=== PATIENT | female | born 1955 | race Caucasian/White ===

== ENCOUNTER 2023-05-20 15:52 | Inpatient (IN) | payer MEDICARE, OTHER ==
--- NOTE | 2023-05-20 17:11 | ED ---
General Adult HPI - General Chief complaint: Weakness Stated complaint: failure to thrive Time Seen by Provider: 05/20/23 16:16 Source: patient, EMS Mode of arrival: EMS Limitations: physical limitation - History of Present Illness Initial comments: 68-year-old female presents to the emergency department for evaluation of generalized weakness, lightheadedness. Patient states for the past month she has had difficulty getting around due to weakness. She notes that she has been more short of breath than usual. Patient reports that she had chills a couple weeks ago, but this has improved. She also admits to significantly decreased appetite. She denies abdominal pain, vomiting, diarrhea. Patient was placed on 3L O2 by EMS. - Related Data Home Medications Medication Instructions Recorded Confirmed Ibuprofen/Diphenhydramine Cit 3 tab PO HS 05/20/23 05/20/23 [Motrin Pm Caplet] Pioglitazone [Actos] 30 mg PO DAILY 05/20/23 05/20/23 amLODIPine BESYLATE/BENAZEPRIL 1 cap PO DAILY 05/20/23 05/20/23 [amLODIPine BESYLATE/BENAZEPRIL 10-20 mg] metFORMIN HCL [Glucophage] 500 mg PO BID-W/MEALS 05/20/23 05/20/23 Allergies Allergy/AdvReac Type Severity Reaction Status Date / Time No Known Allergies Allergy Verified 05/20/23 19:44 Review of Systems ROS Statement: Those systems with pertinent positive or pertinent negative responses have been documented in the HPI. ROS Other: All systems not noted in ROS Statement are negative. Past Medical History Past Medical History: Diabetes Mellitus, Hypertension Additional Past Medical History / Comment(s): uterine tumor History of Any Multi-Drug Resistant Organisms: None Reported Past Surgical History: Section, Hysterectomy, Tubal Ligation Past Psychological History: No Psychological Hx Reported Smoking Status: Never smoker Past Alcohol Use History: None Reported Past Drug Use History: Marijuana General Exam Limitations: no limitations General appearance: alert, in no apparent distress Head exam: Present: atraumatic, normocephalic, normal inspection Eye exam: Present: normal appearance, PERRL, EOMI. Absent: scleral icterus, conjunctival injection, periorbital swelling ENT exam: Present: normal exam, mucous membranes moist Neck exam: Present: normal inspection. Absent: tenderness, meningismus, lymphadenopathy Respiratory exam: Present: wheezes, rales. Absent: respiratory distress, rhonchi, stridor Cardiovascular Exam: Present: regular rate, normal rhythm, normal heart sounds. Absent: systolic murmur, diastolic murmur, rubs, gallop, clicks GI/Abdominal exam: Present: soft, normal bowel sounds. Absent: distended, tenderness, guarding, rebound, rigid Extremities exam: Present: normal inspection, full ROM, normal capillary refill. Absent: tenderness, pedal edema, joint swelling, calf tenderness Back exam: Present: normal inspection Neurological exam: Present: alert, oriented X3, CN II-XII intact Psychiatric exam: Present: normal affect, normal mood Skin exam: Present: warm, dry, intact, normal color. Absent: rash Course Vital Signs 05/20/23 05/20/23 05/20/23 16:01 19:03 20:02 Temperature 98.5 F Pulse Rate 103 H 101 H 70 Respiratory 18 20 20 Rate Blood Pressure 159/84 148/94 144/84 O2 Sat by Pulse 92 L 94 L 96 Oximetry 05/20/23 05/20/23 05/20/23 20:30 20:37 23:07 Temperature Pulse Rate 70 72 95 Respiratory Rate Blood Pressure O2 Sat by Pulse 95 Oximetry Medical Decision Making - Medical Decision Making Was pt. sent in by a medical professional or institution (, PA, VENDING SUPERVISOR, urgent care, hospital, or fpc...) When possible be specific @ -No Did you speak to anyone other than the patient for history (EMS, parent, family, police, friend...)? What history was obtained from this source @ -Patients daughter provided some of the history for this patient Did you review nursing and triage notes (agree or disagree)? Why? @ -I reviewed and agree with nursing and triage notes Were old charts reviewed (outside hosp., previous admission, EMS record, old EKG, old radiological studies, urgent care reports/EKG's, fpc records)? Report findings @ -No old charts were reviewed Differential Diagnosis (chest pain, altered mental status, abdominal pain women, abdominal pain men, vaginal bleeding, weakness, fever, dyspnea, syncope, headache, dizziness, GI bleed, back pain, seizure, CVA, palpatations, mental health, musculoskeletal)? @ -Differential Weakness: Hypoglycemia, shock, sepsis, hyponatremia, anemia, infection, KS, ETOH, adverse medicine reaction, overdose, stroke, this is not meant to be an all-inclusive list. EKG interpreted by me (3pts min.). @ -EGK at 2004 shows sinus rhythm with short OR, rate 95, OR 100, QRS 86, QTQ Tc [id number] X-rays interpreted by me (1pt min.). @ -Chest XR shows moderate pulmonary vascular congestion CT interpreted by me (1pt min.). @ -CT chest for PE pending U/S interpreted by me (1pt. min.). @ -None done What testing was considered but not performed or refused? (CT, X-rays, U/S, labs)? Why? @ -None What meds were considered but not given or refused? Why? @ -None Did you discuss the management of the patient with other professionals (professionals i.e. , PA, VENDING SUPERVISOR, lab, RT, psych nurse, licensed clinical social worker, log loader, teacher, amphibious operations officer, case finishing machine adjuster)? Give summary @ -Management was discussed with Dr. Byrne, the patient's primary care provider. Recommends admission, pulmonary consultation Was smoking cessation discussed for >3mins.? @ -No Was critical care preformed (if so, how long)? @ -No Were there social determinants of health that impacted care today? How? (Homelessness, low income, unemployed, alcoholism, drug addiction, transportation, low edu. Level, literacy, decrease access to med. care, intermediate, rehab)? @ -No Was there de-escalation of care discussed even if they declined (Discuss DNR or withdrawal of care, Hospice)? DNR status @ -No What co-morbidities impacted this encounter? (DM, HTN, Smoking, COPD, CAD, Cancer, CVA, ARF, Chemo, Hep., AIDS, mental health diagnosis, sleep apnea, morbid obesity)? @ -None Was patient admitted / discharged? Hospital course, mention meds given and route, prescriptions, significant lab abnormalities, going to OR and other pertinent info. @ -Admitted. Presented to the emergency department for evaluation of weakness. Patient found to be hypoxic by EMS and was placed on 3 L of oxygen. She was satting in the low 90s on 3 L. She was bumped up to 4 L and is satting in the mid 90s. Laboratory studies were obtained on this patient. She was found to have significant leukocytosis at 36.5. Differential was pending initially. She was also found to be hypokalemic with a potassium of 2.8. This was replenished with oral potassium. Chest x-ray was obtained which according to radiology shows mild pulmonary vascular congestion, I disagree with this based on the clinical picture, patient will be treated as a pneumonia. She was placed on Rocephin and azithromycin. She was also provided a 1 L bolus with 130 cc/h of normal saline. Patient was later tested for COVID, influenza, RSV and did test positive for influenza A. She was given a dose of Tamiflu. Case was discussed with Dr. Byrne, the patient's primary care provider who recommends admission with pulmonolgy consultation. PE rule out was requested by Dr. Byrne which is pending at the time of admission. Patient will be admitted, she is understanding and agreeable with this plan. Patient stable at time of admission. Case discussed with Dr. Viera Undiagnosed new problem with uncertain prognosis? @ -No Drug Therapy requiring intensive monitoring for toxicity (Heparin, Nitro, Insulin, Cardizem)? @ -No Were any procedures done? @ -No Diagnosis/symptom? @ -Hypoxia, lymphocytosis, influenza A Acute, or Chronic, or Acute on Chronic? @ -Acute Uncomplicated (without systemic symptoms) or Complicated (systemic symptoms)? @ -Uncomplicated Side effects of treatment? @ -No Exacerbation, Progression, or Severe Exacerbation? @ -No Poses a threat to life or bodily function? How? (Chest pain, USA, KS, pneumonia, PE, COPD, DKA, ARF, appy, cholecystitis, CVA, Diverticulitis, Homicidal, Suicidal, threat to staff... and all critical care pts) @ -yes - Lab Data Result diagrams: 05/20/23 17:27 05/20/23 17:27 Lab Results 05/20/23 05/20/23 05/20/23 Range/Units 17:27 17: 17: WBC 36.5 H (3.8-10.6) k/uL RBC 4.61 (3.80-5.40) m/uL Hgb 14.8 (11.4-16.0) gm/dL Hct 42.1 (34.0-46.0) % MCV 91.3 (80.0-100.0) fL MCH 32.0 (25.0-35.0) pg MCHC 35.0 (31.0-37.0) g/dL RDW 15.0 (11.5-15.5) % Plt Count 355 (150-450) k/uL MPV 8.0 Neutrophils % (Manual) 19 % Lymphocytes % (Manual) 80 % Monocytes % (Manual) 1 % Neutrophils # (Manual) 6.94 (1.3-7.7) k/uL Lymphocytes # (Manual) 29.20 H (1.0-4.8) k/uL Monocytes # (Manual) 0.37 (0-1.0) k/uL Nucleated RBCs 0 (0-0) /100 WBC Manual Slide Review Performed Hyperchromasia Slight Poikilocytosis Moderate PT 12.5 (10.0-12.5) sec INR 1.2 H (<1.2) APTT 24.9 (22.0-30.0) sec Sodium (137-145) mmol/L Potassium (3.5-5.1) mmol/L Chloride (98-107) mmol/L Carbon Dioxide (22-30) mmol/L Anion Gap mmol/L BUN (7-17) mg/dL Creatinine (0.52-1.04) mg/dL Est GFR (CKD-EPI)AfAm (>60 ml/min/1.73 sqM) Est GFR (CKD-EPI)NonAf (>60 ml/min/1.73 sqM) Glucose (74-99) mg/dL Plasma Lactic Acid Blanco (0.7-2.0) mmol/L Calcium (8.4-10.2) mg/dL Magnesium (1.6-2.3) mg/dL Total Bilirubin (0.2-1.3) mg/dL AST (14-36) U/L ALT (4-34) U/L Alkaline Phosphatase (38-126) U/L Troponin I (0.000-0.034) ng/mL NT-Pro-B Natriuret Pep pg/mL Total Protein (6.3-8.2) g/dL Albumin (3.5-5.0) g/dL Urine Color Yellow Urine Appearance Clear (Clear) Urine pH 6.0 (5.0-8.0) Ur Specific Cord 1.017 (1.001-1.035) Urine Protein 1+ H (Negative) Urine Glucose (UA) 1+ H (Negative) Urine Ketones 3+ H (Negative) Urine Blood Trace H (Negative) Urine Nitrite Negative (Negative) Urine Bilirubin Negative (Negative) Urine Urobilinogen <2.0 (<2.0) mg/dL Ur Leukocyte Esterase Moderate H (Negative) Urine RBC 6 H (0-5) /hpf Urine WBC 33 H (0-5) /hpf Ur Squamous Epith Cells 3 (0-4) /hpf Urine Bacteria Rare H (None) /hpf Urine Mucus Rare H (None) /hpf Influenza Type A (PCR) (Not Detectd) Influenza Type B (PCR) (Not Detectd) RSV (PCR) (Not Detectd) SARS-CoV-2 (PCR) (Not Detectd) 05/20/23 05/20/23 05/20/23 Range/Units 17:27 17:27 17:27 WBC (3.8-10.6) k/uL RBC (3.80-5.40) m/uL Hgb (11.4-16.0) gm/dL Hct (34.0-46.0) % MCV (80.0-100.0) fL MCH (25.0-35.0) pg MCHC (31.0-37.0) g/dL RDW (11.5-15.5) % Plt Count (150-450) k/uL MPV Neutrophils % (Manual) % Lymphocytes % (Manual) % Monocytes % (Manual) % Neutrophils # (Manual) (1.3-7.7) k/uL Lymphocytes # (Manual) (1.0-4.8) k/uL Monocytes # (Manual) (0-1.0) k/uL Nucleated RBCs (0-0) /100 WBC Manual Slide Review Hyperchromasia Poikilocytosis PT (10.0-12.5) sec INR (<1.2) APTT (22.0-30.0) sec Sodium 134 L (137-145) mmol/L Potassium 2.8 L (3.5-5.1) mmol/L Chloride 89 L (98-107) mmol/L Carbon Dioxide 36 H (22-30) mmol/L Anion Gap 9 mmol/L BUN 16 (7-17) mg/dL Creatinine 0.48 L (0.52-1.04) mg/dL Est GFR (CKD-EPI)AfAm >90 (>60 ml/min/1.73 sqM) Est GFR (CKD-EPI)NonAf >90 (>60 ml/min/1.73 sqM) Glucose 178 H (74-99) mg/dL Plasma Lactic Acid Blanco 1.2 (0.7-2.0) mmol/L Calcium 8.6 (8.4-10.2) mg/dL Magnesium (1.6-2.3) mg/dL Total Bilirubin 1.3 (0.2-1.3) mg/dL AST 31 (14-36) U/L ALT 21 (4-34) U/L Alkaline Phosphatase 90 (38-126) U/L Troponin I <0.012 (0.000-0.034) ng/mL NT-Pro-B Natriuret Pep 111 pg/mL Total Protein 6.4 (6.3-8.2) g/dL Albumin 3.7 (3.5-5.0) g/dL Urine Color Urine Appearance (Clear) Urine pH (5.0-8.0) Ur Specific Cord (1.001-1.035) Urine Protein (Negative) Urine Glucose (UA) (Negative) Urine Ketones (Negative) Urine Blood (Negative) Urine Nitrite (Negative) Urine Bilirubin (Negative) Urine Urobilinogen (<2.0) mg/dL Ur Leukocyte Esterase (Negative) Urine RBC (0-5) /hpf Urine WBC (0-5) /hpf Ur Squamous Epith Cells (0-4) /hpf Urine Bacteria (None) /hpf Urine Mucus (None) /hpf Influenza Type A (PCR) (Not Detectd) Influenza Type B (PCR) (Not Detectd) RSV (PCR) (Not Detectd) SARS-CoV-2 (PCR) (Not Detectd) 05/20/23 05/20/23 Range/Units 18:26 19:26 WBC (3.8-10.6) k/uL RBC (3.80-5.40) m/uL Hgb (11.4-16.0) gm/dL Hct (34.0-46.0) % MCV (80.0-100.0) fL MCH (25.0-35.0) pg MCHC (31.0-37.0) g/dL RDW (11.5-15.5) % Plt Count (150-450) k/uL MPV Neutrophils % (Manual) % Lymphocytes % (Manual) % Monocytes % (Manual) % Neutrophils # (Manual) (1.3-7.7) k/uL Lymphocytes # (Manual) (1.0-4.8) k/uL Monocytes # (Manual) (0-1.0) k/uL Nucleated RBCs (0-0) /100 WBC Manual Slide Review Hyperchromasia Poikilocytosis PT (10.0-12.5) sec INR (<1.2) APTT (22.0-30.0) sec Sodium (137-145) mmol/L Potassium (3.5-5.1) mmol/L Chloride (98-107) mmol/L Carbon Dioxide (22-30) mmol/L Anion Gap mmol/L BUN (7-17) mg/dL Creatinine (0.52-1.04) mg/dL Est GFR (CKD-EPI)AfAm (>60 ml/min/1.73 sqM) Est GFR (CKD-EPI)NonAf (>60 ml/min/1.73 sqM) Glucose (74-99) mg/dL Plasma Lactic Acid Blanco (0.7-2.0) mmol/L Calcium (8.4-10.2) mg/dL Magnesium 2.0 (1.6-2.3) mg/dL Total Bilirubin (0.2-1.3) mg/dL AST (14-36) U/L ALT (4-34) U/L Alkaline Phosphatase (38-126) U/L Troponin I (0.000-0.034) ng/mL NT-Pro-B Natriuret Pep pg/mL Total Protein (6.3-8.2) g/dL Albumin (3.5-5.0) g/dL Urine Color Urine Appearance (Clear) Urine pH (5.0-8.0) Ur Specific Cord (1.001-1.035) Urine Protein (Negative) Urine Glucose (UA) (Negative) Urine Ketones (Negative) Urine Blood (Negative) Urine Nitrite (Negative) Urine Bilirubin (Negative) Urine Urobilinogen (<2.0) mg/dL Ur Leukocyte Esterase (Negative) Urine RBC (0-5) /hpf Urine WBC (0-5) /hpf Ur Squamous Epith Cells (0-4) /hpf Urine Bacteria (None) /hpf Urine Mucus (None) /hpf Influenza Type A (PCR) Detected A (Not Detectd) Influenza Type B (PCR) Not Detected (Not Detectd) RSV (PCR) Not Detected (Not Detectd) SARS-CoV-2 (PCR) Not Detected (Not Detectd) Disposition Clinical Impression: Lymphocytosis, Pulmonary vascular congestion, Influenza A, Hypoxia, Hypokalemia Disposition: ADMITTED IP TO THIS HOSP Condition: Stable Is patient prescribed a controlled substance at d/c from ED?: No
--- NOTE | 2023-05-20 17:56 | XR ---
EXAMINATION TYPE: XR chest 2V DATE OF EXAM: 05/20/2023 5:53 PM CLINICAL INDICATION:Female, 68 years old with history of Weakness; PHH COMPARISON: None TECHNIQUE: XR chest 2V Frontal and lateral views of the chest. FINDINGS: Lungs/Pleura: There is no evidence of pleural effusion, focal consolidation, or pneumothorax. Pulmonary vascularity: Pulmonary vascular congestion. Heart/mediastinum: Cardiomediastinal silhouette is enlarged and stable. Atherosclerotic calcificatio ns are seen in the aorta. Musculoskeletal: No acute osseous pathology. IMPRESSION: Cardiomegaly and mild pulmonary vascular congestion. Correlate with BNP for congestive heart failure.
[2023-05-20 18:02] LABS: HCT 42.1 % (34.0-46.0); HGB 14.8 gm/dL (11.4-16.0); Hyperchromasia Slight; MCV 91.3 fL (80.0-100.0); Platelet Count 355 k/uL (150-450); Poikilocytosis Moderate; RBC 4.61 m/uL (3.80-5.40); WBC 36.5 k/uL (3.8-10.6)
[2023-05-20 18:03] LABS: ALT 21 U/L (4-34); AST 31 U/L (14-36); African American GFR (CKD) >90 (>60 ml/min/1.73 sqM); Albumin 3.7 g/dL (3.5-5.0); Alkaline Phosphatase 90 U/L (38-126); Anion Gap 9 mmol/L; Blood Urea Nitrogen 16 mg/dL (7-17); Calcium 8.6 mg/dL (8.4-10.2); Carbon Dioxide 36 mmol/L (22-30); Chloride 89 mmol/L (98-107); Glucose 178 mg/dL (74-99); Non-African American GFR(CKD) >90 (>60 ml/min/1.73 sqM); Potassium 2.8 mmol/L (3.5-5.1); Sodium 134 mmol/L (137-145); Total Bilirubin 1.3 mg/dL (0.2-1.3); Total Protein 6.4 g/dL (6.3-8.2)
[2023-05-20 18:07] LABS: INR 1.2 (<1.2); Partial Thromboplastin Time 24.9 sec (22.0-30.0); Prothrombin Time 12.5 sec (10.0-12.5)
[2023-05-20] MEDS ORDERED: Potassium Replacement Protocol 1 EACH MISC MISCELLANE PRN (18:07)
[2023-05-20 18:11] LABS: NT-Pro-B-Type Natriuretic Pept 111 pg/mL
[2023-05-20] MEDS: POTASSIUM CHLORIDE ER 20 MEQ TAB.ER PO SCH (18:47)
[2023-05-20] MEDS ORDERED: PNEUMONIA PROTOCOL UTILIZED 1 EACH MISC PO PRN (18:52)
[2023-05-20] MEDS ORDERED: ALBUTEROL NEBULIZED 2.5 MG/3 ML INHALATION PRN (18:52)
[2023-05-20] MEDS ORDERED: IPRATROPIUM-ALBUTEROL 3 ML NEB INHALATION PRN (18:52)
[2023-05-20 19:32] LABS: Appearance,Urine Clear (Clear); Bacteria,Urine Rare /hpf; Bilirubin,Urine Negative (Negative); Blood,Urine Trace (Negative); Color,Urine Yellow; Glucose,Urine (UA) 1+ (Negative); Leukocyte Esterase,Urine Moderate (Negative); Mucus,Urine Rare /hpf; Nitrite,Urine Negative (Negative); Protein,Urine 1+ (Negative); RBC,Urine 6 /hpf (0-5); Specific Gravity,Urine 1.017 (1.001-1.035); Squamous Epithelial Cell,Urine 3 /hpf (0-4); Urobilinogen,Urine <2.0 mg/dL (<2.0); WBC,Urine 33 /hpf (0-5)
[2023-05-20 19:33] LABS: Ketones,Urine 3+ (Negative)
[2023-05-20 19:38] LABS: Monocytes # (M) 0.37 k/uL (0-1.0); Neutrophils # (M) 6.94 k/uL (1.3-7.7); Neutrophils % (M) 19 %; Nucleated Red Blood Cells 0 /100 WBC (0-0); Total Cells Counted 100
[2023-05-20] MEDS: SODIUM CHLORIDE 0.9% 1,000 ML IV ONE (19:46)
[2023-05-20] MEDS ORDERED: KETOROLAC 15 MG/ML 1 ML VIAL IVP PRN (20:09)
[2023-05-20] MEDS ORDERED: NALOXONE 0.4 MG/ML 1 ML VIAL IV PRN (20:09)
[2023-05-20] MEDS: IPRATROPIUM-ALBUTEROL 3 ML NEB INHALATION STA (20:28)
[2023-05-20] MEDS: AZITHROMYCIN 500 MG in SODIUM CHLORIDE 0.9% 250 ML IVPB STA (21:05)
[2023-05-20] MEDS: SODIUM CHLORIDE 0.9% 1,000 ML IV SCH (21:06)
[2023-05-20] MEDS: OSELTAMIVIR 75 MG CAP PO STA (21:08)
[2023-05-20] MEDS: METOCLOPRAMIDE 5 MG/ML 2 ML VIAL IVP STA (23:07)
--- NOTE | 2023-05-20 23:08 | CT ---
EXAMINATION TYPE: CT chest angio for PE CT DLP: 389.2 mGycm, Automated exposure control for dose reduction was used. DATE OF EXAM: 05/20/2023 9:01 PM COMPARISON: Chest x-ray earlier today CLINICAL INDICATION:Female, 68 years old with history of dyspnea; Dyspnea TECHNIQUE/CONTRAST: CTA scan of the thorax is performed with IV Contrast, patient injected with 65ml mL of Isovue 370, IL P images are created and reviewed these are created on a separate workstation.. FINDINGS: There is adequate contrast bolus and timing. PULMONARY ARTERIES: There is no evidence for a filling defect within the pulmonary vasculature to sug gest acute pulmonary embolism. Pulmonary trunk is normal in size. Trunk measures 2.3 CM. HEART: Mild to moderate cardiomegaly.Mild coronary artery calcification. No appreciable pericardial effusion. Prominent pericardial fat. AORTA: Mild atherosclerotic calcifications of the aorta, mostly upper abdomen. Ascending aorta is 3. 2 CM, descending is 2.3 CM. No dissection. LOWER NECK: No significant findings. MEDIASTINUM: Multiple borderline prominent and mildly enlarged mediastinal nodes. AP window node with short axis 10 mm, subcarinal node 13 mm for example. Bilateral hilar region soft tissue densities s uggestive of adenopathy. Right hilar conglomerate density 3.1 cm left hilar node 1.9 cm. Other exampl es are possible. SOFT TISSUES/LYMPH NODES: Unremarkable soft tissues. No axillary adenopathy. LUNGS/ PLEURA: Background mild chronic interstitial and senescent changes. There is superimposed patc hy groundglass and reticular opacities with a collection for the subpleural regions bilaterally. No d iscretely seen nodule or mass. No pleural effusion or pneumothorax. AIRWAY: Central airways are patent. There is borderline mild bronchiectasis in the lower lobes. MUSCULOSKELETAL: No acute osseous abnormality. Moderate disc degeneration changes are present through out the included thoracolumbar spine. Prominent apex right curvature of the thoracic spine. UPPER ABDOMEN: Moderate sized sliding hiatal hernia. Radiodensity within the stomach lumen, likely so mething ingested. Differential would include bleeding, if there is history or suspicion for upper GI bleed. Mildly thickened adrenals likely from hyperplasia. Spleen is prominent, visualized portion 11 .8 cm but a significant portion extends beyond the scope of this exam. IMPRESSION: 1. No evidence of pulmonary embolism. 2. Patchy bilateral primarily subpleural groundglass opacities, raising concern for infectious/infla mmatory process. Differential includes atypical infectious agents (such as Covid 19). 3. Bilateral hilar adenopathy, and several mediastinal nodes which are borderline to mildly enlarged .
[2023-05-20] MEDS: MORPHINE SULFATE 4 MG/ML SYRINGE IV PRN (23:31)
[2023-05-20] MEDS ORDERED: VANCOMYCIN IV PER PHARMACY 1 EACH MISC MISCELLANE PRN (23:59)
[2023-05-21] MEDS ORDERED: DEXTROSE 50% SYRINGE 50 ML IVP PRN ×2
[2023-05-21] MEDS: VANCOMYCIN 2,000 MG in SODIUM CHLORIDE 0.9% 500 ML 500 ML IVPB ONE (01:17)
[2023-05-21] MEDS: ALBUTEROL NEBULIZED 2.5 MG/3 ML INHALATION SCH (03:51)
--- NOTE | 2023-05-21 05:23 | P.CNPUL ---
History of Present Illness Consult date: 05/21/23 Requesting physician: Debra Myles Reason for consult: other (Acute hypoxemic respiratory failure, influenza A infection) Chief complaint: Shortness of breath, weakness, fatigue History of present illness: I am seeing this patient in consultation today 05/21/2023 in the emergency room after she presented with exertional dyspnea, generalized weakness, and fatigue. Patient is a 68-year-old white female with past medical history significant for diabetes mellitus, hypertension. She reports flulike symptoms that started on the or april. They started with runny nose, sore throat, nonproductive cough, fevers/chills, reduced appetite. She never really fully recovered. More recently, she has been experiencing shortness of breath especially on exertion. She has been very weak and lightheaded. She did have a brief episode of nausea and vomiting while in the emergency room. She is currently sitting with bed, on 5 L/min nasal cannula, in no acute distress at rest. She is anxious. She did test positive for influenza A on arrival. Chest CT shows patchy bilateral groundglass opacities concerning for atypical pneumonia. There is bilateral hilar and mediastinal adenopathy, likely reactive. CBC on arrival shows significant leukocytosis with a total WBC count of 36.5. Predominantly lymphocytes. Remaining CBC unremarkable. BMP on arrival: Sodium 134, potassium 2.8, chloride 89, serum bicarb 36, BUN 16, creatinine 0.48, glucose 178. LFTs not elevated. Troponin less than 0.012. NT proBNP 111. Urinalysis shows moderate leukocytes and rare pyuria. Patient denies any urinary complaints. Currently afebrile. Vital signs are stable. Review of Systems REVIEW OF SYSTEMS: CONSTITUTIONAL: Denies any recent significant weight loss or weight gain. EYES: Denies change in vision. EARS, NOSE, MOUTH, THROAT: Admits frontal headaches, rhinorrhea, sore throat earlier in the month CARDIOVASCULAR: Denies chest pain, palpitations or syncopal episodes. RESPIRATORY: See HPI GASTROINTESTINAL: Admits reduced appetite and brief episode of nausea and vomiting in the emergency room, mostly water. Denies any abdominal pain, constipation, diarrhea GENITOURINARY: Denies hematuria, denies infections. MUSKULOSKELETAL: Denies pain, denies swelling. INTEGUMENTARY: Denies rash, denies eczema. NEUROLOGICAL: Denies recent memory loss, no recent seizure activity. PSYCHIATRIC: Denies anxiety, denies depression. HEMATOLOGIC/LYMPHATIC: Denies anemia, denies enlarged lymph node Past Medical History Past Medical History: Diabetes Mellitus, Hypertension Additional Past Medical History / Comment(s): uterine tumor History of Any Multi-Drug Resistant Organisms: None Reported Past Surgical History: Section, Hysterectomy, Tubal Ligation Past Psychological History: No Psychological Hx Reported Smoking Status: Never smoker Past Alcohol Use History: None Reported Past Drug Use History: Marijuana Medications and Allergies Home Medications Medication Instructions Recorded Confirmed Type Ibuprofen/Diphenhydramine Cit 3 tab PO HS 05/20/23 05/20/23 History [Motrin Pm Caplet] Pioglitazone [Actos] 30 mg PO DAILY 05/20/23 05/20/23 History amLODIPine BESYLATE/BENAZEPRIL 1 cap PO DAILY 05/20/23 05/20/23 History [amLODIPine BESYLATE/BENAZEPRIL 10-20 mg] metFORMIN HCL [Glucophage] 500 mg PO BID-W/MEALS 05/20/23 05/20/23 History Allergies Allergy/AdvReac Type Severity Reaction Status Date / Time No Known Allergies Allergy Verified 05/20/23 19:44 Physical Exam Vitals: Vital Signs Temp Pulse Resp BP Pulse Ox 05/21/23 02:41 97 05/21/23 01:26 98 20 149/72 94 L 05/20/23 23:07 95 95 05/20/23 20:37 72 05/20/23 20:30 70 05/20/23 20:02 70 20 144/84 96 05/20/23 19:03 101 H 20 148/94 94 L 05/20/23 16:01 98.5 F 103 H 18 159/84 92 L Intake and Output 05/20/23 05/20/23 05/21/23 14:59 22:59 06:59 Other: Weight 92.986 kg GENERAL EXAM: Alert, 68-year-old white female, appearing stated age, fatigued, in no apparent distress. HEAD: Normocephalic and atraumatic EYES: Normal reaction of pupils, equal size. NOSE: Clear with pink turbinates. THROAT: No erythema or exudates. NECK: No masses, no JVD. CHEST: No chest wall deformity. LUNGS: Equal air entry with scattered crackles. On 5 L/min nasal cannula. No conversational dyspnea or accessory muscle use while at rest CVS: S1 and S2 normal with no audible murmur, regular rhythm. No extra heart sounds ABDOMEN: No hepatosplenomegaly, active bowel sounds, no guarding or rigidity. SPINE: No scoliosis or deformity SKIN: No rashes CENTRAL NERVOUS SYSTEM: No focal deficits, tone is normal in all 4 extremities. EXTREMITIES: There is no peripheral edema, clubbing, or cyanosis. Peripheral pulses are intact. Results - Laboratory Findings CBC and BMP: 05/20/23 17:27 05/20/23 17:27 PT/INR, D-dimer PT 12.5 sec (10.0-12.5) 05/20/23 17: INR 1.2 (<1.2) H 05/20/23 17: Abnormal lab findings: Abnormal Labs 05/20/23 05/20/23 05/20/23 17:27 17:27 17:27 WBC 36.5 H Lymphocytes # (Manual) 29.20 H INR 1.2 H Sodium Potassium Chloride Carbon Dioxide Creatinine Glucose Urine Protein 1+ H Urine Glucose (UA) 1+ H Urine Ketones 3+ H Urine Blood Trace H Ur Leukocyte Esterase Moderate H Urine RBC 6 H Urine WBC 33 H Urine Bacteria Rare H Urine Mucus Rare H Influenza Type A (PCR) 05/20/23 05/20/23 17:27 19:26 WBC Lymphocytes # (Manual) INR Sodium 134 L Potassium 2.8 L Chloride 89 L Carbon Dioxide 36 H Creatinine 0.48 L Glucose 178 H Urine Protein Urine Glucose (UA) Urine Ketones Urine Blood Ur Leukocyte Esterase Urine RBC Urine WBC Urine Bacteria Urine Mucus Influenza Type A (PCR) Detected A - Diagnostic Findings Chest x-ray: image reviewed CT scan - chest: image reviewed Assessment and Plan Assessment: Acute hypoxemic respiratory failure, secondary to subacute influenza A infe ction, chest CT shows patchy bilateral groundglass opacities concerning for atypical pneumonia/viral pneumonia, unable to rule out superimposed bacterial infection at this time. Acute leukocytosis/lymphocytosis, secondary to above Hypokalemia, being replaced Possible UTI Diabetes mellitus type 2 Hypertension Obesity, with a BMI of 37.5 kg/m Plan: Patient's medications, labs, chest x-ray reviewed Continue supplemental oxygen, to maintain oxygen saturation 92% or greater Patient technically outside the window, but will continue with Tamiflu twice daily for 5 days Continue with empiric antibiotics, unable to rule out superinfection with bacterial pneumonia at this time. Imaging more consistent with viral/atypical pneumonia Check procalcitonin level Blood cultures pending Recheck electrolytes and replace per protocol We will continue to follow I have personally seen and examined the patient, performed the documentation and the assessment and plan as written. Number of minutes spent on the visit:20 Time with Patient: Greater than 30
[2023-05-21 07:55] LABS: Glucose,Whole Blood 191 mg/dL (70-110)
[2023-05-21 08:04] LABS: African American GFR (CKD) >90 (>60 ml/min/1.73 sqM); Anion Gap 8 mmol/L; Blood Urea Nitrogen 10 mg/dL (7-17); Calcium 7.8 mg/dL (8.4-10.2); Carbon Dioxide 32 mmol/L (22-30); Chloride 95 mmol/L (98-107); Glucose 159 mg/dL (74-99); Non-African American GFR(CKD) >90 (>60 ml/min/1.73 sqM); Sodium 135 mmol/L (137-145)
[2023-05-21 08:11] LABS: Potassium 2.6 mmol/L (3.5-5.1)
[2023-05-21] MEDS: INSULIN ASPART (NovoLOG) 100 UNIT/ML VIAL SQ SCH (08:44)
[2023-05-21] MEDS: POTASSIUM CHLORIDE ER 20 MEQ TAB.ER PO SCH (08:46)
[2023-05-21] MEDS: OSELTAMIVIR 75 MG CAP PO SCH (10:10)
[2023-05-21] MEDS: AZITHROMYCIN 500 MG TAB PO SCH (10:10)
[2023-05-21] MEDS: amLODIPine 10 MG TAB PO SCH (11:02)
[2023-05-21] MEDS: ONDANSETRON 4 MG/2 ML VIAL IVP PRN (11:41)
[2023-05-21 11:50] LABS: Glucose,Whole Blood 251 mg/dL (70-110)
--- NOTE | 2023-05-21 12:02 | P.HPIM ---
History of Present Illness H&P Date: 05/21/23 History of present illness; patient is a 68-year-old lady with past medical history significant for hypertension, diabetes mellitus presented to ER for complaints of generalized weakness and lightheadedness. Patient r states she has not been feeling well for the last few weeks. Patient had a hard time getting around because of weakness. Patient was complaining of chills but did not check her fever. Patient also complains of shortness of breath on exertion. Denies any chest pain. There is no complaint of productive cough. Patient has been complaining of lightheadedness. Patient also complaining of nausea. Because of the symptoms, patient came to the ER Initial lab work done in the ER showed WBC 36.5, hemoglobin 14.8, platelet count 255, sodium 134, potassium 2.8, BUN 16, creatinine 0.48 Influenza A detected Influenza B not detected RSV not detected COVID-19 not detected EKG done in the ER showed heart rate of 95, no ST segment elevation or depression seen, no T-wave inversions seen. Chest x-ray done in the ER cardiomegaly and mild pulmonary congestion CT chest done showed no evidence of PE. Patchy bilateral primarily subpleural groundglass opacity raising concern for infectious/inflammatory process Patient admitted to internal medicine service REVIEW OF SYSTEMS: CONSTITUTIONAL: As mentioned above HEENT: No recent visual problems or hearing problems. Denied any sore throat. CARDIOVASCULAR: As mentioned above PULMONARY: As mentioned above GASTROINTESTINAL: No diarrhea, no nausea, no vomiting, no abdominal pain. NEUROLOGICAL: No headaches, no weakness, no numbness. HEMATOLOGICAL: Denies any bleeding or petechiae. GENITOURINARY: Denies any burning micturition, frequency, or urgency. MUSCULOSKELETAL/RHEUMATOLOGICAL: Denies any joint pain, swelling, or any muscle pain. ENDOCRINE: Denies any polyuria or polydipsia. The rest of the 14-point review of systems is negative. PHYSICAL EXAMINATION: GENERAL: The patient is alert and oriented x3, not in any acute distress. Well developed, well nourished. HEENT: Pupils are round and equally reacting to light. EOMI. No scleral icterus. No conjunctival pallor. Normocephalic, atraumatic. No pharyngeal erythema. No thyromegaly. CARDIOVASCULAR: S1 and S2 present. No murmurs, rubs, or gallops. PULMONARY: Coarse breath sound bilaterally, no wheezing or crackles. ABDOMEN: Soft, nontender, nondistended, normoactive bowel sounds. No palpable organomegaly. MUSCULOSKELETAL: No joint swelling or deformity. EXTREMITIES: No cyanosis, clubbing, or pedal edema. NEUROLOGICAL: Gross neurological examination did not reveal any focal deficits. SKIN: No rashes. Assessment and plan Acute hypoxemic respiratory failure Sepsis present on admission Influenza A infection Bacterial pneumonia Hyponatremia Hypokalemia Diabetes mellitus Hypertension Monitor vital signs Monitor CBC Monitor CMP Continue telemetry monitoring Follow-up on blood cultures Aggressive bronchopulmonary hygiene Encourage use of I-S Continue Tamiflu Start IV Rocephin and azithromycin Blood sugar levels, continue sliding scale insulin Resume Norvasc Continue breathing treatments Consult pulmonary Consult ID Labs and medication were reviewed.. Continue same treatment. Continue with symptomatic treatment. Resume home medication. Monitor labs and vitals. DVT and GI prophylaxis. Further recommendations as per clinical course of the patient Dictation was produced using [employer] dictation software. please excuse any grammatical, word or spelling errors. Past Medical History Past Medical History: Diabetes Mellitus, Hypertension Additional Past Medical History / Comment(s): uterine tumor History of Any Multi-Drug Resistant Organisms: None Reported Past Surgical History: Section, Hysterectomy, Tubal Ligation Past Psychological History: No Psychological Hx Reported Smoking Status: Never smoker Past Alcohol Use History: None Reported Past Drug Use History: Marijuana Medications and Allergies Home Medications Medication Instructions Recorded Confirmed Type Ibuprofen/Diphenhydramine Cit 3 tab PO HS 05/20/23 05/20/23 History [Motrin Pm Caplet] Pioglitazone [Actos] 30 mg PO DAILY 05/20/23 05/20/23 History amLODIPine BESYLATE/BENAZEPRIL 1 cap PO DAILY 05/20/23 05/20/23 History [amLODIPine BESYLATE/BENAZEPRIL 10-20 mg] metFORMIN HCL [Glucophage] 500 mg PO BID-W/MEALS 05/20/23 05/20/23 History Allergies Allergy/AdvReac Type Severity Reaction Status Date / Time No Known Allergies Allergy Verified 05/20/23 19:44 Physical Exam Vitals: Vital Signs Temp Pulse Pulse Resp BP BP Pulse Ox 05/21/23 07:00 98.6 F 86 15 150/72 90 L 05/21/23 06:07 98.0 F 87 18 134/71 92 L 05/21/23 02:41 97 05/21/23 01:26 98 20 149/72 94 L 05/20/23 23:07 95 95 05/20/23 20:37 72 05/20/23 20:30 70 05/20/23 20:02 70 20 144/84 96 05/20/23 19:03 101 H 20 148/94 94 L 05/20/23 16:01 98.5 F 103 H 18 159/84 92 L Intake and Output 05/20/23 05/21/23 05/21/23 22:59 06:59 14:59 Other: Weight 92.986 kg Results CBC & Chem 7: 05/20/23 17:27 05/21/23 07:21 Labs: Abnormal Lab Results - Last 24 Hours (Table) 05/20/23 05/20/23 05/20/23 Range/Units 17:27 17:27 17:27 WBC 36.5 H (3.8-10.6) k/uL Lymphocytes # (Manual) 29.20 H (1.0-4.8) k/uL INR 1.2 H (<1.2) Sodium (137-145) mmol/L Potassium (3.5-5.1) mmol/L Chloride (98-107) mmol/L Carbon Dioxide (22-30) mmol/L Creatinine (0.52-1.04) mg/dL Glucose (74-99) mg/dL POC Glucose (mg/dL) (70-110) mg/dL Calcium (8.4-10.2) mg/dL Urine Protein 1+ H (Negative) Urine Glucose (UA) 1+ H (Negative) Urine Ketones 3+ H (Negative) Urine Blood Trace H (Negative) Ur Leukocyte Esterase Moderate H (Negative) Urine RBC 6 H (0-5) /hpf Urine WBC 33 H (0-5) /hpf Urine Bacteria Rare H (None) /hpf Urine Mucus Rare H (None) /hpf Influenza Type A (PCR) (Not Detectd) 05/20/23 05/20/23 05/21/23 Range/Units 17:27 19:26 07:21 WBC (3.8-10.6) k/uL Lymphocytes # (Manual) (1.0-4.8) k/uL INR (<1.2) Sodium 134 L 135 L (137-145) mmol/L Potassium 2.8 L 2.6 L* (3.5-5.1) mmol/L Chloride 89 L 95 L (98-107) mmol/L Carbon Dioxide 36 H 32 H (22-30) mmol/L Creatinine 0.48 L 0.45 L (0.52-1.04) mg/dL Glucose 178 H 159 H (74-99) mg/dL POC Glucose (mg/dL) (70-110) mg/dL Calcium 7.8 L (8.4-10.2) mg/dL Urine Protein (Negative) Urine Glucose (UA) (Negative) Urine Ketones (Negative) Urine Blood (Negative) Ur Leukocyte Esterase (Negative) Urine RBC (0-5) /hpf Urine WBC (0-5) /hpf Urine Bacteria (None) /hpf Urine Mucus (None) /hpf Influenza Type A (PCR) Detected A (Not Detectd) 05/21/23 Range/Units 07:52 WBC (3.8-10.6) k/uL Lymphocytes # (Manual) (1.0-4.8) k/uL INR (<1.2) Sodium (137-145) mmol/L Potassium (3.5-5.1) mmol/L Chloride (98-107) mmol/L Carbon Dioxide (22-30) mmol/L Creatinine (0.52-1.04) mg/dL Glucose (74-99) mg/dL POC Glucose (mg/dL) 191 H (70-110) mg/dL Calcium (8.4-10.2) mg/dL Urine Protein (Negative) Urine Glucose (UA) (Negative) Urine Ketones (Negative) Urine Blood (Negative) Ur Leukocyte Esterase (Negative) Urine RBC (0-5) /hpf Urine WBC (0-5) /hpf Urine Bacteria (None) /hpf Urine Mucus (None) /hpf Influenza Type A (PCR) (Not Detectd)
[2023-05-21 12:30] LABS: HCT 36.6 % (34.0-46.0); HGB 12.4 gm/dL (11.4-16.0); MCH 32.3 pg (25.0-35.0); MCV 95.1 fL (80.0-100.0); Platelet Count 352 k/uL (150-450); Poikilocytosis Moderate; RBC 3.85 m/uL (3.80-5.40); RDW 14.9 % (11.5-15.5); WBC 29.1 k/uL (3.8-10.6)
[2023-05-21 13:44] LABS: Lymphocytes # (M) 25.32 k/uL (1.0-4.8); Monocytes # (M) 0.29 k/uL (0-1.0); Neutrophils # (M) 3.49 k/uL (1.3-7.7); Neutrophils % (M) 12 %; Nucleated Red Blood Cells 0 /100 WBC (0-0); Total Cells Counted 100
--- NOTE | 2023-05-21 14:35 | XR ---
EXAMINATION TYPE: XR chest 1V portable DATE OF EXAM: 05/21/2023 5:44 AM CLINICAL INDICATION:Female, 68 years old with history of pneumonia; [facility] COMPARISON: Chest radiograph 05/20/2023 TECHNIQUE: XR chest 1V portable Frontal view of the chest. FINDINGS: Lungs/Pleura: There is no evidence of pleural effusion, focal consolidation, or pneumothorax. Pulmonary vascularity: Pulmonary vascular congestion. Heart/mediastinum: Cardiomediastinal silhouette is enlarged and stable. Atherosclerotic calcification s are seen in the aorta musculoskeletal: No acute osseous pathology. IMPRESSION: Cardiomegaly and mild pulmonary vascular congestion. Correlate with BNP for congestive h eart failure. Consider pneumonia and/or flu.
[2023-05-21 16:34] LABS: Glucose,Whole Blood 184 mg/dL (70-110)
[2023-05-21] MEDS: VANCOMYCIN 1,500 MG in SODIUM CHLORIDE 0.9% 500 ML 500 ML IVPB SCH (18:33)
[2023-05-21 20:22] LABS: Glucose,Whole Blood 175 mg/dL (70-110)
--- NOTE | 2023-05-21 22:57 | P.CONS ---
History of Present Illness - Reason for Consult Consult date: 05/21/23 - History of Present Illness Patient is a 68-year-old female past medical history significant for diabetes mellitus hypertension uterine tumor status post hysterectomy presenting to the hospital for evaluation of generalized weakness lightheadedness as well as increasing shortness of breath patient symptom has been going on for couple of weeks and has been complaining of increasing shortness of breath on minimal exertion even at rest patient did have a cough however this mostly dry and mild to moderate intensity patient denies having any nausea or vomiting he did have decreased appetite denies any abdominal pain or any diarrhea with the symptoms the patient was brought into the hospital on arrival to the ER the patient was afebrile and no fever have recorded subsequently patient was not tachycardic or hypotensive mildly hypoxic currently on 5 L nasal cannula oxygen patient did have a white count of 36.5 with a left shift creatinine has been normal liver enzymes are normal urine has mildly positive patient tested positive for influenza A COVID RSV was negative patient did have a chest x-ray cardiomegaly mild pulmonary vascular congestion CT angiogram of the chest evidence of PE patchy bilateral pulmonary subpleural groundglass opacity concerning for inflammatory process patient has been admitted to the hospital started on Tamiflu Rocephin and Zithromax infectious disease was consulted for further management of antibiotic therapy Past Medical History Past Medical History: Diabetes Mellitus, Hypertension Additional Past Medical History / Comment(s): uterine tumor History of Any Multi-Drug Resistant Organisms: None Reported Past Surgical History: Section, Hysterectomy, Tubal Ligation Past Psychological History: No Psychological Hx Reported Smoking Status: Never smoker Past Alcohol Use History: None Reported Past Drug Use History: Marijuana Medications and Allergies Home Medications Medication Instructions Recorded Confirmed Type Ibuprofen/Diphenhydramine Cit 3 tab PO HS 05/20/23 05/20/23 History [Motrin Pm Caplet] Pioglitazone [Actos] 30 mg PO DAILY 05/20/23 05/20/23 History amLODIPine BESYLATE/BENAZEPRIL 1 cap PO DAILY 05/20/23 05/20/23 History [amLODIPine BESYLATE/BENAZEPRIL 10-20 mg] metFORMIN HCL [Glucophage] 500 mg PO BID-W/MEALS 05/20/23 05/20/23 History Allergies Allergy/AdvReac Type Severity Reaction Status Date / Time No Known Allergies Allergy Verified 05/20/23 19:44 Physical Exam Vitals: Vital Signs Temp Pulse Pulse Resp BP BP Pulse Ox 05/21/23 10:06 85 05/21/23 09:56 85 05/21/23 07:00 98.6 F 86 15 150/72 90 L 05/21/23 06:07 98.0 F 87 18 134/71 92 L 05/21/23 02:41 97 05/21/23 01:26 98 20 149/72 94 L 05/20/23 23:07 95 95 05/20/23 20:37 72 05/20/23 20:30 70 05/20/23 20:02 70 20 144/84 96 05/20/23 19:03 101 H 20 148/94 94 L 05/20/23 16:01 98.5 F 103 H 18 159/84 92 L Intake and Output 05/20/23 05/21/23 05/21/23 22:59 06:59 14:59 Intake Total 180 Balance 180 Intake: Oral 180 Other: Weight 92.986 kg Results CBC & Chem 7: 05/22/23 09:04 05/22/23 09:04 Labs: Abnormal Lab Results - Last 24 Hours (Table) 05/20/23 05/20/23 05/20/23 Range/Units 17:27 17:27 17:27 WBC 36.5 H (3.8-10.6) k/uL Lymphocytes # (Manual) 29.20 H (1.0-4.8) k/uL INR 1.2 H (<1.2) Sodium (137-145) mmol/L Potassium (3.5-5.1) mmol/L Chloride (98-107) mmol/L Carbon Dioxide (22-30) mmol/L Creatinine (0.52-1.04) mg/dL Glucose (74-99) mg/dL POC Glucose (mg/dL) (70-110) mg/dL Calcium (8.4-10.2) mg/dL Urine Protein 1+ H (Negative) Urine Glucose (UA) 1+ H (Negative) Urine Ketones 3+ H (Negative) Urine Blood Trace H (Negative) Ur Leukocyte Esterase Moderate H (Negative) Urine RBC 6 H (0-5) /hpf Urine WBC 33 H (0-5) /hpf Urine Bacteria Rare H (None) /hpf Urine Mucus Rare H (None) /hpf Influenza Type A (PCR) (Not Detectd) 05/20/23 05/20/23 05/21/23 Range/Units 17:27 19:26 07:21 WBC (3.8-10.6) k/uL Lymphocytes # (Manual) (1.0-4.8) k/uL INR (<1.2) Sodium 134 L 135 L (137-145) mmol/L Potassium 2.8 L 2.6 L* (3.5-5.1) mmol/L Chloride 89 L 95 L (98-107) mmol/L Carbon Dioxide 36 H 32 H (22-30) mmol/L Creatinine 0.48 L 0.45 L (0.52-1.04) mg/dL Glucose 178 H 159 H (74-99) mg/dL POC Glucose (mg/dL) (70-110) mg/dL Calcium 7.8 L (8.4-10.2) mg/dL Urine Protein (Negative) Urine Glucose (UA) (Negative) Urine Ketones (Negative) Urine Blood (Negative) Ur Leukocyte Esterase (Negative) Urine RBC (0-5) /hpf Urine WBC (0-5) /hpf Urine Bacteria (None) /hpf Urine Mucus (None) /hpf Influenza Type A (PCR) Detected A (Not Detectd) 05/21/23 Range/Units 07:52 WBC (3.8-10.6) k/uL Lymphocytes # (Manual) (1.0-4.8) k/uL INR (<1.2) Sodium (137-145) mmol/L Potassium (3.5-5.1) mmol/L Chloride (98-107) mmol/L Carbon Dioxide (22-30) mmol/L Creatinine (0.52-1.04) mg/dL Glucose (74-99) mg/dL POC Glucose (mg/dL) 191 H (70-110) mg/dL Calcium (8.4-10.2) mg/dL Urine Protein (Negative) Urine Glucose (UA) (Negative) Urine Ketones (Negative) Urine Blood (Negative) Ur Leukocyte Esterase (Negative) Urine RBC (0-5) /hpf Urine WBC (0-5) /hpf Urine Bacteria (None) /hpf Urine Mucus (None) /hpf Influenza Type A (PCR) (Not Detectd) Assessment and Plan Plan: 1patient presented to hospital with sepsis in this patient who did have tachycardia elevated white count source is likely pneumonia in this patient tested positive for influenza A and concerning for secondary bacterial pneumonia 2-we will try to obtain a sputum for Gram stain culture check a CRP and a procalcitonin level as well as urine for Legionella antigen 3-patient to continue with the Tamiflu along with Rocephin and Zithromax while waiting for the workup to be completed We will follow on clinical condition and cultures to further adjust medication if needed Thank you for this consultation we will follow the patient along with you Dictation was produced using [employer] dictation software. please excuse any grammatical, word or spelling errors. Time with Patient: Greater than 30
[2023-05-22 06:17] LABS: Glucose,Whole Blood 176 mg/dL (70-110)
[2023-05-22 10:36] LABS: African American GFR (CKD) >90 (>60 ml/min/1.73 sqM); Anion Gap 11 mmol/L; Blood Urea Nitrogen 4 mg/dL (7-17); Calcium 8.6 mg/dL (8.4-10.2); Carbon Dioxide 33 mmol/L (22-30); Chloride 94 mmol/L (98-107); Glucose 223 mg/dL (74-99); Non-African American GFR(CKD) >90 (>60 ml/min/1.73 sqM); Potassium 3.3 mmol/L (3.5-5.1); Sodium 138 mmol/L (137-145)
[2023-05-22 11:35] LABS: Glucose,Whole Blood 264 mg/dL (70-110)
[2023-05-22 12:06] LABS: HCT 42.9 % (34.0-46.0); HGB 13.5 gm/dL (11.4-16.0); Hypochromasia Slight; MCH 30.6 pg (25.0-35.0); MCHC 31.4 g/dL (31.0-37.0); MCV 97.3 fL (80.0-100.0); Mean Platelet Volume 8.9; Platelet Count 447 k/uL (150-450); Poikilocytosis Moderate
--- NOTE | 2023-05-22 13:14 | P.PN ---
Subjective Progress Note Date: 05/22/23 patient is a 68-year-old lady with past medical history significant for hypertension, diabetes mellitus presented to ER for complaints of generalized weakness and lightheadedness. Patient r states she has not been feeling well for the last few weeks. Patient had a hard time getting around because of weak ness. Patient was complaining of chills but did not check her fever. Patient also complains of shortness of breath on exertion. Denies any chest pain. There is no complaint of productive cough. Patient has been complaining of lightheadedness. Patient also complaining of nausea. Because of the symptoms, patient came to the ER Initial lab work done in the ER showed WBC 36.5, hemoglobin 14.8, platelet count 255, sodium 134, potassium 2.8, BUN 16, creatinine 0.48 Influenza A detected Influenza B not detected RSV not detected COVID-19 not detected EKG done in the ER showed heart rate of 95, no ST segment elevation or depression seen, no T-wave inversions seen. Chest x-ray done in the ER cardiomegaly and mild pulmonary congestion CT chest done showed no evidence of PE. Patchy bilateral primarily subpleural groundglass opacity raising concern for infectious/inflammatory process Patient admitted to internal medicine service 05/21. Patient seen and examined. Laying in the bed comfortably, states that she feels better. Still on 5 L of oxygen. Complaining of shortness of breath on exertion. Still complaining of weakness. Blood work done this morning showed WBC 39.5, hemoglobin 13.5, platelet count 447, sodium 130, potassium 3.3, BUN 4, creatinine 0.51 REVIEW OF SYSTEMS: CONSTITUTIONAL: No fever, no malaise,. CARDIOVASCULAR: No chest pain, no palpitations, no syncope. PULMONARY: As mentioned above GASTROINTESTINAL: No diarrhea, no nausea, no vomiting, no abdominal pain. NEUROLOGICAL: No headaches, no weakness, PHYSICAL EXAMINATION: GENERAL: The patient is alert and oriented x3, not in any acute distress. Well developed, well nourished. HEENT: Pupils are round and equally reacting to light. EOMI. No scleral icterus. No conjunctival pallor. Normocephalic, atraumatic. No pharyngeal erythema. No thyromegaly. CARDIOVASCULAR: S1 and S2 present. No murmurs, rubs, or gallops. PULMONARY: Chest is clear to auscultation, no wheezing or crackles. ABDOMEN: Soft, nontender, nondistended, normoactive bowel sounds. No palpable organomegaly. MUSCULOSKELETAL: No joint swelling or deformity. EXTREMITIES: No cyanosis, clubbing, or pedal edema. NEUROLOGICAL: Gross neurological examination did not reveal any focal deficits. SKIN: No rashes. Assessment and plan Acute hypoxemic respiratory failure Sepsis present on admission Influenza A infection Bacterial pneumonia Hyponatremia Hypokalemia Diabetes mellitus Hypertension Monitor vital signs Monitor CBC Monitor CMP Continue telemetry monitoring Follow-up on blood cultures Aggressive bronchopulmonary hygiene Encourage use of I-S Continue Tamiflu Continue IV Rocephin and azithromycin Blood sugar levels, continue sliding scale insulin Continue Norvasc Continue breathing treatments Pulmonary following ID following Labs and medication were reviewed.. Continue same treatment. Continue with symptomatic treatment. Resume home medication. Monitor labs and vitals. DVT and GI prophylaxis. Further recommendations as per clinical course of the patient Dictation was produced using [employer] dictation software. please excuse any grammatical, word or spelling errors. Objective - Vital Signs Vital signs: Vital Signs Temp 97.5 F L 05/22/23 08:43 Pulse 80 05/22/23 09:43 Resp 17 05/22/23 08:43 BP 146/78 05/22/23 08:43 Pulse Ox 95 05/22/23 08:43 FiO2 Intake & Output 05/21/23 05/22/23 05/22/23 18:59 06:59 18:59 Intake Total 298 540 Balance 298 540 Weight 92.986 kg Intake: Oral 298 540 Other: Voiding Method Toilet Toilet # Voids 1 1 - Labs CBC & Chem 7: 05/22/23 09:04 05/22/23 09:04 Labs: Abnormal Lab Results - Last 24 Hours (Table) 05/21/23 05/21/23 05/21/23 Range/Units 07:21 11:49 11:51 WBC (3.8-10.6) k/uL Lymphocytes # (Manual) (1.0-4.8) k/uL POC Glucose (mg/dL) 251 H (70-110) mg/dL Hemoglobin A1c 6.7 H (<=6.0) % Procalcitonin 0.11 H (0.02-0.09) ng/mL 05/21/23 05/21/23 05/21/23 Range/Units 11:51 16:32 20:20 WBC 29.1 H (3.8-10.6) k/uL Lymphocytes # (Manual) 25.32 H (1.0-4.8) k/uL POC Glucose (mg/dL) 184 H 175 H (70-110) mg/dL Hemoglobin A1c (<=6.0) % Procalcitonin (0.02-0.09) ng/mL 05/22/23 Range/Units 06:15 WBC (3.8-10.6) k/uL Lymphocytes # (Manual) (1.0-4.8) k/uL POC Glucose (mg/dL) 176 H (70-110) mg/dL Hemoglobin A1c (<=6.0) % Procalcitonin (0.02-0.09) ng/mL Microbiology - Last 24 Hours (Table) 05/20/23 19:20 Blood Culture - Preliminary Blood 05/20/23 19:35 Blood Culture - Preliminary Blood
[2023-05-22 13:24] LABS: Neutrophils % (M) 22 %; Nucleated Red Blood Cells 1 /100 WBC (0-0); Total Cells Counted 100
[2023-05-22 13:25] LABS: WBC 39.1 k/uL (3.8-10.6)
[2023-05-22 13:26] LABS: Polychromasia Present
--- NOTE | 2023-05-22 15:44 | P.PN ---
Subjective Progress Note Date: 05/22/23 Principal diagnosis: Reason for follow-up is influenza A pneumonia and leukocytosis Patient is a 68-year-old female past medical history significant for diabetes mellitus hypertension uterine tumor status post hysterectomy presenting to the hospital for evaluation of generalized weakness lightheadedness as well as increasing shortness of breath, patient tested positive for influenza, CT of the chest with patchy bilateral pulmonary infiltrate. On today's visit that is 05/22/2023, Patient is afebrile patient is currently on 4 L nasal cannula oxygen and is breathing more comfortably denies any chest pain minimal cough no nausea vomiting no abdominal pain no diarrhea. Patient white count is up to 39.1 creatinine 0.51 urine for Legionella antigen negative blood cultures pending sputum not collected Objective - Vital Signs Vital signs: Vital Signs Temp 98.1 F 05/22/23 12:27 Pulse 96 05/22/23 13:44 Resp 18 05/22/23 13:44 BP 146/71 05/22/23 12:27 Pulse Ox 94 L 05/22/23 12:27 FiO2 Intake & Output 05/21/23 05/22/23 05/22/23 18:59 06:59 18:59 Intake Total 298 540 Balance 298 540 Weight 92.986 kg Intake: Oral 298 540 Other: Voiding Method Toilet Toilet # Voids 1 1 - Exam GENERAL DESCRIPTION: An elderly female lying in bed in no distress RESPIRATORY SYSTEM: Unlabored breathing , decreased breath sounds at bases HEART: S1 S2 regular rate and rhythm , ABDOMEN: Soft , no tenderness EXTREMITIES: No edema feet - Labs CBC & Chem 7: 05/22/23 09:04 05/22/23 09:04 Labs: Abnormal Lab Results - Last 24 Hours (Table) 05/21/23 05/21/23 05/21/23 Range/Units 11:51 16:32 20:20 WBC (3.8-10.6) k/uL Neutrophils # (Manual) (1.3-7.7) k/uL Lymphocytes # (Manual) (1.0-4.8) k/uL Nucleated RBCs (0-0) /100 WBC Potassium (3.5-5.1) mmol/L Chloride (98-107) mmol/L Carbon Dioxide (22-30) mmol/L BUN (7-17) mg/dL Creatinine (0.52-1.04) mg/dL Glucose (74-99) mg/dL POC Glucose (mg/dL) 184 H 175 H (70-110) mg/dL Hemoglobin A1c 6.7 H (<=6.0) % 05/22/23 05/22/23 05/22/23 Range/Units 06:15 09:04 09:04 WBC 39.1 H (3.8-10.6) k/uL Neutrophils # (Manual) 8.60 H (1.3-7.7) k/uL Lymphocytes # (Manual) 30.50 H (1.0-4.8) k/uL Nucleated RBCs 1 H (0-0) /100 WBC Potassium 3.3 L (3.5-5.1) mmol/L Chloride 94 L (98-107) mmol/L Carbon Dioxide 33 H (22-30) mmol/L BUN 4 L (7-17) mg/dL Creatinine 0.51 L (0.52-1.04) mg/dL Glucose 223 H (74-99) mg/dL POC Glucose (mg/dL) 176 H (70-110) mg/dL Hemoglobin A1c (<=6.0) % 05/22/23 Range/Units 11:31 WBC (3.8-10.6) k/uL Neutrophils # (Manual) (1.3-7.7) k/uL Lymphocytes # (Manual) (1.0-4.8) k/uL Nucleated RBCs (0-0) /100 WBC Potassium (3.5-5.1) mmol/L Chloride (98-107) mmol/L Carbon Dioxide (22-30) mmol/L BUN (7-17) mg/dL Creatinine (0.52-1.04) mg/dL Glucose (74-99) mg/dL POC Glucose (mg/dL) 264 H (70-110) mg/dL Hemoglobin A1c (<=6.0) % Microbiology - Last 24 Hours (Table) 05/20/23 17:27 Urine Culture - Final Urine,Voided 05/20/23 19:20 Blood Culture - Preliminary Blood 05/20/23 19:35 Blood Culture - Preliminary Blood Assessment and Plan (1) Influenza A Current Visit: Yes Status: Acute Code(s): J10.1 - FLU DUE TO OTH IDENT INFLUENZA VIRUS W OTH RESP MANIFEST SNOMED Code(s): 546883899 (2) Lymphocytosis Current Visit: Yes Status: Acute Code(s): D72.820 - LYMPHOCYTOSIS (SYMPTOMATIC) SNOMED Code(s): 40254952 (3) Pneumonia Current Visit: Yes Status: Acute Code(s): J18.9 - PNEUMONIA, UNSPECIFIED ORGANISM SNOMED Code(s): 407254320 Plan: 1patient presented to hospital with sepsis in this patient who did have tachycardia elevated white count source is likely pneumonia in this patient tested positive for influenza A and concerning for secondary bacterial pneumonia 2-we will try to obtain a sputum for Gram stain culture, currently waiting for CRP and a procalcitonin level as well as urine for Legionella antigen is negative 3-patient to continue with the Tamiflu along with Rocephin and monitor clinical course closely 4leukocytosis with predominantly elevated lymphocyte count questionable hematological etiology and will benefit from hematology evaluation Dictation was produced using [employer] dictation software. please excuse any grammatical, word or spelling errors. Time with Patient: Less than 30
--- NOTE | 2023-05-22 16:00 | P.PN ---
Subjective Progress Note Date: 05/22/23 Principal diagnosis: Acute hypoxic respiratory failure secondary to atypical pneumonia possibly viral pneumonia or community-acquired pneumonia I am seeing this patient in consultation today 05/21/2023 in the emergency room after she presented with exertional dyspnea, generalized weakness, and fatigue. Patient is a 68-year-old white female with past medical history significant for diabetes mellitus, hypertension. She reports flulike symptoms that started on the or april. They started with runny nose, sore throat, nonproductive cough, fevers/chills, reduced appetite. She never really fully recovered. More recently, she has been experiencing shortness of breath especially on exertion. She has been very weak and lightheaded. She did have a brief episode of nausea and vomiting while in the emergency room. She is currently sitting with bed, on 5 L/min nasal cannula, in no acute distress at rest. She is anxious. She did test positive for influenza A on arrival. Chest CT shows patchy bilateral groundglass opacities concerning for atypical pneumo kye. There is bilateral hilar and mediastinal adenopathy, likely reactive. CBC on arrival shows significant leukocytosis with a total WBC count of 36.5. Predominantly lymphocytes. Remaining CBC unremarkable. BMP on arrival: Sodium 134, potassium 2.8, chloride 89, serum bicarb 36, BUN 16, creatinine 0.48, glucose 178. LFTs not elevated. Troponin less than 0.012. NT proBNP 111. Urinalysis shows moderate leukocytes and rare pyuria. Patient denies any urinary complaints. Currently afebrile. Vital signs are stable. Reevaluate today on 05/22/2023, patient remains on 4 L nasal cannula, she is afebrile, feeling much better today compared to yesterday, very minimal cough, no wheezing, no shortness of breath, no chest pain. Continues to have leukocytosis with WBC count as high as 39.1 hemoglobin 13.5 basic metabolic profile is normal except for low potassium of 3.3. He remains empirically on vancomycin and cefepime, blood cultures remain negative,Urine cultures are negative so far. Patient is being followed by infectious disease on consultation Objective - Vital Signs Vital signs: Vital Signs Temp 98.3 F 05/22/23 15:45 Pulse 92 05/22/23 15:45 Resp 17 05/22/23 15:45 BP 132/73 05/22/23 15:45 Pulse Ox 95 05/22/23 15:45 FiO2 Intake & Output 05/21/23 05/22/23 05/22/23 18:59 06:59 18:59 Intake Total 298 540 Balance 298 540 Weight 92.986 kg Intake: Oral 298 540 Other: Voiding Method Toilet Toilet # Voids 1 1 1 - Exam GENERAL EXAM: Alert, 68-year-old white female, on 4 L nasal cannula O2 sat 95% HEAD: Normocephalic and atraumatic EYES: Normal reaction of pupils, equal size. NOSE: Clear with pink turbinates. THROAT: No erythema or exudates. NECK: No masses, no JVD. CHEST: No chest wall deformity. LUNGS: Fine crackles and rhonchi at the bases CVS: S1 and S2 normal with no audible murmur, regular rhythm. No extra heart sounds ABDOMEN: No hepatosplenomegaly, active bowel sounds, no guarding or rigidity. SKIN: No rashes CENTRAL NERVOUS SYSTEM: Alert oriented x 3 no gross focal deficit EXTREMITIES: No clubbing edema or cyanosis - Labs CBC & Chem 7: 05/22/23 09:04 05/22/23 09:04 Labs: Abnormal Lab Results - Last 24 Hours (Table) 05/21/23 05/21/23 05/21/23 Range/Units 11:51 16:32 20:20 WBC (3.8-10.6) k/uL Neutrophils # (Manual) (1.3-7.7) k/uL Lymphocytes # (Manual) (1.0-4.8) k/uL Nucleated RBCs (0-0) /100 WBC Potassium (3.5-5.1) mmol/L Chloride (98-107) mmol/L Carbon Dioxide (22-30) mmol/L BUN (7-17) mg/dL Creatinine (0.52-1.04) mg/dL Glucose (74-99) mg/dL POC Glucose (mg/dL) 184 H 175 H (70-110) mg/dL Hemoglobin A1c 6.7 H (<=6.0) % 05/22/23 05/22/23 05/22/23 Range/Units 06:15 09:04 09:04 WBC 39.1 H (3.8-10.6) k/uL Neutrophils # (Manual) 8.60 H (1.3-7.7) k/uL Lymphocytes # (Manual) 30.50 H (1.0-4.8) k/uL Nucleated RBCs 1 H (0-0) /100 WBC Potassium 3.3 L (3.5-5.1) mmol/L Chloride 94 L (98-107) mmol/L Carbon Dioxide 33 H (22-30) mmol/L BUN 4 L (7-17) mg/dL Creatinine 0.51 L (0.52-1.04) mg/dL Glucose 223 H (74-99) mg/dL POC Glucose (mg/dL) 176 H (70-110) mg/dL Hemoglobin A1c (<=6.0) % 05/22/23 Range/Units 11:31 WBC (3.8-10.6) k/uL Neutrophils # (Manual) (1.3-7.7) k/uL Lymphocytes # (Manual) (1.0-4.8) k/uL Nucleated RBCs (0-0) /100 WBC Potassium (3.5-5.1) mmol/L Chloride (98-107) mmol/L Carbon Dioxide (22-30) mmol/L BUN (7-17) mg/dL Creatinine (0.52-1.04) mg/dL Glucose (74-99) mg/dL POC Glucose (mg/dL) 264 H (70-110) mg/dL Hemoglobin A1c (<=6.0) % Microbiology - Last 24 Hours (Table) 05/20/23 17:27 Urine Culture - Final Urine,Voided 05/20/23 19:20 Blood Culture - Preliminary Blood 05/20/23 19:35 Blood Culture - Preliminary Blood Assessment and Plan Assessment: Impression: Acute hypoxemic respiratory failure, secondary to subacute influenza A infection , chest CT shows patchy bilateral groundglass opacities concerning for atypical pneumonia/viral pneumonia, unable to rule out superimposed bacterial infection at this time. Acute leukocytosis/lymphocytosis, secondary to above Hypokalemia, being replaced Possible UTI Diabetes mellitus type 2 Hypertension Obesity, with a BMI of 37.5 kg/m sub acute influenza A infection Acute sepsis secondary to above Recommendation: Continue updrafts Continue ceftriaxone Continue Tamiflu although the patient is out of the window for treatment but considering her presentation we will continue Tamiflu Continue vancomycin for now Check cultures including blood and sputum cultures and urine cultures Will continue to follow Time with Patient: Less than 30
[2023-05-22 16:40] LABS: Glucose,Whole Blood 175 mg/dL (70-110)
[2023-05-22] MEDS: ACETAMINOPHEN TAB 325 MG TAB PO PRN (18:04)
[2023-05-22 20:12] LABS: Glucose,Whole Blood 197 mg/dL (70-110)
[2023-05-23] MEDS: VANCOMYCIN TROUGH DUE 1 EACH MISC MISCELLANE ONE (02:06)
[2023-05-23 02:49] LABS: African American GFR (CKD) >90 (>60 ml/min/1.73 sqM); Non-African American GFR(CKD) >90 (>60 ml/min/1.73 sqM)
[2023-05-23 06:14] LABS: Glucose,Whole Blood 225 mg/dL (70-110)
[2023-05-23 11:52] LABS: Glucose,Whole Blood 226 mg/dL (70-110)
[2023-05-23 12:35] LABS: HCT 34.9 % (34.0-46.0); HGB 11.6 gm/dL (11.4-16.0); Hypochromasia Slight; MCH 31.9 pg (25.0-35.0); MCHC 33.2 g/dL (31.0-37.0); Mean Platelet Volume 8.1; Platelet Count 349 k/uL (150-450); Poikilocytosis Moderate; RBC 3.64 m/uL (3.80-5.40); RDW 14.8 % (11.5-15.5)
[2023-05-23 13:09] LABS: ALT 18 U/L (4-34); AST 24 U/L (14-36); African American GFR (CKD) >90 (>60 ml/min/1.73 sqM); Albumin 3.2 g/dL (3.5-5.0); Alkaline Phosphatase 81 U/L (38-126); Anion Gap 5 mmol/L; Blood Urea Nitrogen 6 mg/dL (7-17); Calcium 7.8 mg/dL (8.4-10.2); Carbon Dioxide 33 mmol/L (22-30); Chloride 98 mmol/L (98-107); Glucose 220 mg/dL (74-99); Non-African American GFR(CKD) >90 (>60 ml/min/1.73 sqM); Potassium 2.8 mmol/L (3.5-5.1); Sodium 136 mmol/L (137-145); Total Bilirubin 0.6 mg/dL (0.2-1.3); Total Protein 5.5 g/dL (6.3-8.2)
--- NOTE | 2023-05-23 13:10 | P.PN ---
Subjective Progress Note Date: 05/23/23 patient is a 68-year-old lady with past medical history significant for hypertension, diabetes mellitus presented to ER for complaints of generalized weakness and lightheadedness. Patient r states she has not been feeling well for the last few weeks. Patient had a hard time getting around because of weak ness. Patient was complaining of chills but did not check her fever. Patient also complains of shortness of breath on exertion. Denies any chest pain. There is no complaint of productive cough. Patient has been complaining of lightheadedness. Patient also complaining of nausea. Because of the symptoms, patient came to the ER Initial lab work done in the ER showed WBC 36.5, hemoglobin 14.8, platelet count 255, sodium 134, potassium 2.8, BUN 16, creatinine 0.48 Influenza A detected Influenza B not detected RSV not detected COVID-19 not detected EKG done in the ER showed heart rate of 95, no ST segment elevation or depression seen, no T-wave inversions seen. Chest x-ray done in the ER cardiomegaly and mild pulmonary congestion CT chest done showed no evidence of PE. Patchy bilateral primarily subpleural groundglass opacity raising concern for infectious/inflammatory process Patient admitted to internal medicine service 05/21. Patient seen and examined. Laying in the bed comfortably, states that she feels better. Still on 5 L of oxygen. Complaining of shortness of breath on exertion. Still complaining of weakness. Blood work done this morning showed WBC 39.5, hemoglobin 13.5, platelet count 447, sodium 130, potassium 3.3, BUN 4, creatinine 0.51 05/22. Patient seen and examined., Ox requirements have improved, currently on 2 L of oxygen. Denies any shortness of breath at rest, gets short of breath on exertion. WBC is 24 which is improved from yesterday of 39.1, hemoglobin is 11.6, platelet count is 349. REVIEW OF SYSTEMS: CONSTITUTIONAL: No fever, no malaise,. CARDIOVASCULAR: No chest pain, no palpitations, no syncope. PULMONARY: As mentioned above GASTROINTESTINAL: No diarrhea, no nausea, no vomiting, no abdominal pain. NEUROLOGICAL: No headaches, no weakness, PHYSICAL EXAMINATION: GENERAL: The patient is alert and oriented x3, not in any acute distress. Well developed, well nourished. HEENT: Pupils are round and equally reacting to light. EOMI. No scleral icterus. No conjunctival pallor. Normocephalic, atraumatic. No pharyngeal erythema. No thyromegaly. CARDIOVASCULAR: S1 and S2 present. No murmurs, rubs, or gallops. PULMONARY: Chest is clear to auscultation, no wheezing or crackles. ABDOMEN: Soft, nontender, nondistended, normoactive bowel sounds. No palpable organomegaly. MUSCULOSKELETAL: No joint swelling or deformity. EXTREMITIES: No cyanosis, clubbing, or pedal edema. NEUROLOGICAL: Gross neurological examination did not reveal any focal deficits. SKIN: No rashes. Assessment and plan Acute hypoxemic respiratory failure Sepsis present on admission Influenza A infection Bacterial pneumonia Hyponatremia Hypokalemia Diabetes mellitus Hypertension Monitor vital signs Monitor CBC Monitor CMP Continue telemetry monitoring Follow-up on blood cultures Aggressive bronchopulmonary hygiene Encourage use of I-S Continue Tamiflu Continue IV Rocephin, completed 3 days of azithromycin Blood sugar levels, continue sliding scale insulin Continue Norvasc Continue breathing treatments Pulmonary following ID following Labs and medication were reviewed.. Continue same treatment. Continue with symptomatic treatment. Resume home medication. Monitor labs and vitals. DVT and GI prophylaxis. Further recommendations as per clinical course of the patient Dictation was produced using [email or web address] dictation software. please excuse any grammatical, word or spelling errors. Objective - Vital Signs Vital signs: Vital Signs Temp 98.1 F 05/23/23 12:00 Pulse 85 05/23/23 12:26 Resp 16 05/23/23 12:00 BP 139/76 05/23/23 12:00 Pulse Ox 96 05/23/23 12:00 FiO2 Intake & Output 05/22/23 05/23/23 05/23/23 18:59 06:59 18:59 Intake Total 540 240 Balance 540 240 Intake: Oral 540 240 Other: Voiding Method Toilet Toilet Toilet # Voids 1 3 - Labs CBC & Chem 7: 05/23/23 11:55 05/23/23 01:59 Labs: Abnormal Lab Results - Last 24 Hours (Table) 05/20/23 05/22/23 05/22/23 Range/Units 17:27 09:04 16:38 WBC 39.1 H (3.8-10.6) k/uL RBC (3.80-5.40) m/uL Neutrophils # (Manual) 8.60 H (1.3-7.7) k/uL Lymphocytes # (Manual) 30.50 H (1.0-4.8) k/uL Nucleated RBCs 1 H (0-0) /100 WBC Pathologist Review See comment A Creatinine (0.52-1.04) mg/dL POC Glucose (mg/dL) 175 H (70-110) mg/dL 05/22/23 05/23/23 05/23/23 Range/Units 20:10 01:59 06:09 WBC (3.8-10.6) k/uL RBC (3.80-5.40) m/uL Neutrophils # (Manual) (1.3-7.7) k/uL Lymphocytes # (Manual) (1.0-4.8) k/uL Nucleated RBCs (0-0) /100 WBC Pathologist Review Creatinine 0.50 L (0.52-1.04) mg/dL POC Glucose (mg/dL) 197 H 225 H (70-110) mg/dL 05/23/23 05/23/23 Range/Units 11:31 11:55 WBC 24.0 H (3.8-10.6) k/uL RBC 3.64 L (3.80-5.40) m/uL Neutrophils # (Manual) (1.3-7.7) k/uL Lymphocytes # (Manual) (1.0-4.8) k/uL Nucleated RBCs (0-0) /100 WBC Pathologist Review Creatinine (0.52-1.04) mg/dL POC Glucose (mg/dL) 226 H (70-110) mg/dL Microbiology - Last 24 Hours (Table) 05/20/23 19:20 Blood Culture - Preliminary Blood 05/20/23 19:35 Blood Culture - Preliminary Blood 05/20/23 17:27 Urine Culture - Final Urine,Voided
--- NOTE | 2023-05-23 15:35 | P.PN ---
Subjective Progress Note Date: 05/23/23 Principal diagnosis: Reason for follow-up is influenza A pneumonia and leukocytosis Patient is a 68-year-old female past medical history significant for diabetes mellitus hypertension uterine tumor status post hysterectomy presenting to the hospital for evaluation of generalized weakness lightheadedness as well as increasing shortness of breath, patient tested positive for influenza, CT of the chest with patchy bilateral pulmonary infiltrate. On today's visit that is 05/23/2023, patient has been afebrile, patient is breathing comfortably and is currently on 2 L nasal cannula oxygen, patient denies having any worsening cough no chest pain , patient did have some nausea but no vomiting no abdominal pain no diarrhea. The patient white count is down to 24,000, creatinine 0.42 blood culture negative sputum not collected Objective - Vital Signs Vital signs: Vital Signs Temp 98.1 F 05/23/23 12:00 Pulse 85 05/23/23 12:26 Resp 16 05/23/23 12:00 BP 139/76 05/23/23 12:00 Pulse Ox 96 05/23/23 12:00 FiO2 Intake & Output 05/22/23 05/23/23 05/23/23 18:59 06:59 18:59 Intake Total 540 240 Balance 540 240 Intake: Oral 540 240 Other: Voiding Method Toilet Toilet Toilet # Voids 1 3 - Exam GENERAL DESCRIPTION: An elderly female lying in bed in no distress RESPIRATORY SYSTEM: Unlabored breathing , decreased breath sounds at bases HEART: S1 S2 regular rate and rhythm , ABDOMEN: Soft , no tenderness EXTREMITIES: No edema feet - Labs CBC & Chem 7: 05/23/23 11:55 05/23/23 11:55 Labs: Abnormal Lab Results - Last 24 Hours (Table) 05/20/23 05/22/23 05/22/23 Range/Units 17:27 09:04 16:38 WBC 39.1 H (3.8-10.6) k/uL RBC (3.80-5.40) m/uL Neutrophils # (Manual) 8.60 H (1.3-7.7) k/uL Lymphocytes # (Manual) 30.50 H (1.0-4.8) k/uL Nucleated RBCs 1 H (0-0) /100 WBC Pathologist Review See comment A Sodium (137-145) mmol/L Potassium (3.5-5.1) mmol/L Carbon Dioxide (22-30) mmol/L BUN (7-17) mg/dL Creatinine (0.52-1.04) mg/dL Glucose (74-99) mg/dL POC Glucose (mg/dL) 175 H (70-110) mg/dL Calcium (8.4-10.2) mg/dL Total Protein (6.3-8.2) g/dL Albumin (3.5-5.0) g/dL 05/22/23 05/23/23 05/23/23 Range/Units 20:10 01:59 06:09 WBC (3.8-10.6) k/uL RBC (3.80-5.40) m/uL Neutrophils # (Manual) (1.3-7.7) k/uL Lymphocytes # (Manual) (1.0-4.8) k/uL Nucleated RBCs (0-0) /100 WBC Pathologist Review Sodium (137-145) mmol/L Potassium (3.5-5.1) mmol/L Carbon Dioxide (22-30) mmol/L BUN (7-17) mg/dL Creatinine 0.50 L (0.52-1.04) mg/dL Glucose (74-99) mg/dL POC Glucose (mg/dL) 197 H 225 H (70-110) mg/dL Calcium (8.4-10.2) mg/dL Total Protein (6.3-8.2) g/dL Albumin (3.5-5.0) g/dL 05/23/23 05/23/23 05/23/23 Range/Units 11:31 11:55 11:55 WBC 24.0 H (3.8-10.6) k/uL RBC 3.64 L (3.80-5.40) m/uL Neutrophils # (Manual) (1.3-7.7) k/uL Lymphocytes # (Manual) (1.0-4.8) k/uL Nucleated RBCs (0-0) /100 WBC Pathologist Review Sodium 136 L (137-145) mmol/L Potassium 2.8 L (3.5-5.1) mmol/L Carbon Dioxide 33 H (22-30) mmol/L BUN 6 L (7-17) mg/dL Creatinine 0.42 L (0.52-1.04) mg/dL Glucose 220 H (74-99) mg/dL POC Glucose (mg/dL) 226 H (70-110) mg/dL Calcium 7.8 L (8.4-10.2) mg/dL Total Protein 5.5 L (6.3-8.2) g/dL Albumin 3.2 L (3.5-5.0) g/dL Microbiology - Last 24 Hours (Table) 05/20/23 19:20 Blood Culture - Preliminary Blood 05/20/23 19:35 Blood Culture - Preliminary Blood 05/20/23 17:27 Urine Culture - Final Urine,Voided Assessment and Plan (1) Influenza A Current Visit: Yes Status: Acute Code(s): J10.1 - FLU DUE TO OTH IDENT INFLUENZA VIRUS W OTH RESP MANIFEST SNOMED Code(s): 792633434 (2) Lymphocytosis Current Visit: Yes Status: Acute Code(s): D72.820 - LYMPHOCYTOSIS (SYMPTOMATIC) SNOMED Code(s): 10694899 (3) Pneumonia Current Visit: Yes Status: Acute Code(s): J18.9 - PNEUMONIA, UNSPECIFIED ORGANISM SNOMED Code(s): 166584494 Plan: 1patient presented to hospital with sepsis in this patient who did have t achycardia elevated white count source is likely pneumonia in this patient tested positive for influenza A and concerning for secondary bacterial pneumonia 2-we will try to obtain a sputum for Gram stain culture, currently waiting for CRP and a procalcitonin level as well as urine for Legionella antigen is negative 3-patient to continue with the Tamiflu to finish a 5-day course of therapy, along with Rocephin, try to obtain a sputum 4leukocytosis with predominantly elevated lymphocyte count questionable hematological etiology, white count is trending down Dictation was produced using [employer] dictation software. please excuse any grammatical, word or spelling errors. Time with Patient: Less than 30
--- NOTE | 2023-05-23 16:09 | P.PN ---
Subjective Progress Note Date: 05/23/23 Principal diagnosis: Acute hypoxic respiratory failure secondary to atypical pneumonia possibly viral pneumonia or community-acquired pneumonia I am seeing this patient in consultation today 05/21/2023 in the emergency room after she presented with exertional dyspnea, generalized weakness, and fatigue. Patient is a 68-year-old white female with past medical history significant for diabetes mellitus, hypertension. She reports flulike symptoms that started on the or april. They started with runny nose, sore throat, nonproductive cough, fevers/chills, reduced appetite. She never really fully recovered. More recently, she has been experiencing shortness of breath especially on exertion. She has been very weak and lightheaded. She did have a brief episode of nausea and vomiting while in the emergency room. She is currently sitting with bed, on 5 L/min nasal cannula, in no acute distress at rest. She is anxious. She did test positive for influenza A on arrival. Chest CT shows patchy bilateral groundglass opacities concerning for atypical pneumo kye. There is bilateral hilar and mediastinal adenopathy, likely reactive. CBC on arrival shows significant leukocytosis with a total WBC count of 36.5. Predominantly lymphocytes. Remaining CBC unremarkable. BMP on arrival: Sodium 134, potassium 2.8, chloride 89, serum bicarb 36, BUN 16, creatinine 0.48, glucose 178. LFTs not elevated. Troponin less than 0.012. NT proBNP 111. Urinalysis shows moderate leukocytes and rare pyuria. Patient denies any urinary complaints. Currently afebrile. Vital signs are stable. Reevaluate today on 05/22/2023, patient remains on 4 L nasal cannula, she is afebrile, feeling much better today compared to yesterday, very minimal cough, no wheezing, no shortness of breath, no chest pain. Continues to have leukocytosis with WBC count as high as 39.1 hemoglobin 13.5 basic metabolic profile is normal except for low potassium of 3.3. He remains empirically on vancomycin and cefepime, blood cultures remain negative,Urine cultures are negative so far. Patient is being followed by infectious disease on consultation Patient was reevaluated today on 05/23/2023, patient is feeling much better today, breathing a lot easier, on 2 L nasal cannula, O2 sats is 96%, patient does not seem to be in distress. Remains on antibiotics empirically in the form of vancomycin and cefepime, patient has made a significant improvement, and I am recommending repeat chest x-ray in a.m., and if not any worse, may consider discharge planning. In the meantime the patient is being followed by infectious disease, procalcitonin level has been negative. I believe we are dealing mostly with a viral type of atypical pneumonia Objective - Vital Signs Vital signs: Vital Signs Temp 98.1 F 05/23/23 12:00 Pulse 84 05/23/23 15:57 Resp 16 05/23/23 15:57 BP 139/76 05/23/23 12:00 Pulse Ox 96 05/23/23 12:00 FiO2 Intake & Output 05/22/23 05/23/23 05/23/23 18:59 06:59 18:59 Intake Total 540 618 Balance 540 618 Intake: Intake, IV Titration 260 Amount Sodium Chloride 0.9% 1, 260 000 ml @ 130 mls/hr IV . Q7H42M [facility] Rx#:[id number] Oral 540 358 Other: Voiding Method Toilet Toilet Toilet # Voids 1 3 2 - Exam GENERAL EXAM: Alert, 68-year-old white female, on 2 L nasal cannula 5% HEAD: Normocephalic and atraumatic EYES: Normal reaction of pupils, equal size. NOSE: Clear with pink turbinates. THROAT: No erythema or exudates. NECK: No masses, no JVD. CHEST: No chest wall deformity. LUNGS: Minimal crackles at the bases no rhonchi no wheezes CVS: S1 and S2 normal with no audible murmur, regular rhythm. No extra heart sounds ABDOMEN: No hepatosplenomegaly, active bowel sounds, no guarding or rigidity. SKIN: No rashes CENTRAL NERVOUS SYSTEM: Alert oriented x 3 no gross focal deficit EXTREMITIES: No clubbing edema or cyanosis - Labs CBC & Chem 7: 05/23/23 11:55 05/23/23 11:55 Labs: Abnormal Lab Results - Last 24 Hours (Table) 05/20/23 05/22/23 05/22/23 Range/Units 17:27 16:38 20:10 WBC (3.8-10.6) k/uL RBC (3.80-5.40) m/uL Pathologist Review See comment A Sodium (137-145) mmol/L Potassium (3.5-5.1) mmol/L Carbon Dioxide (22-30) mmol/L BUN (7-17) mg/dL Creatinine (0.52-1.04) mg/dL Glucose (74-99) mg/dL POC Glucose (mg/dL) 175 H 197 H (70-110) mg/dL Calcium (8.4-10.2) mg/dL Total Protein (6.3-8.2) g/dL Albumin (3.5-5.0) g/dL 05/23/23 05/23/23 05/23/23 Range/Units 01:59 06:09 11:31 WBC (3.8-10.6) k/uL RBC (3.80-5.40) m/uL Pathologist Review Sodium (137-145) mmol/L Potassium (3.5-5.1) mmol/L Carbon Dioxide (22-30) mmol/L BUN (7-17) mg/dL Creatinine 0.50 L (0.52-1.04) mg/dL Glucose (74-99) mg/dL POC Glucose (mg/dL) 225 H 226 H (70-110) mg/dL Calcium (8.4-10.2) mg/dL Total Protein (6.3-8.2) g/dL Albumin (3.5-5.0) g/dL 05/23/23 05/23/23 Range/Units 11:55 11:55 WBC 24.0 H (3.8-10.6) k/uL RBC 3.64 L (3.80-5.40) m/uL Pathologist Review Sodium 136 L (137-145) mmol/L Potassium 2.8 L (3.5-5.1) mmol/L Carbon Dioxide 33 H (22-30) mmol/L BUN 6 L (7-17) mg/dL Creatinine 0.42 L (0.52-1.04) mg/dL Glucose 220 H (74-99) mg/dL POC Glucose (mg/dL) (70-110) mg/dL Calcium 7.8 L (8.4-10.2) mg/dL Total Protein 5.5 L (6.3-8.2) g/dL Albumin 3.2 L (3.5-5.0) g/dL Microbiology - Last 24 Hours (Table) 05/20/23 19:20 Blood Culture - Preliminary Blood 05/20/23 19:35 Blood Culture - Preliminary Blood Assessment and Plan Assessment: Impression: Acute hypoxemic respiratory failure, secondary to subacute influenza A infection, chest CT shows patchy bilateral groundglass opacities concerning for atypical pneumonia/viral pneumonia, unable to rule out superimposed bacterial infection at this time. Acute leukocytosis/lymphocytosis, secondary to above Hypokalemia, being replaced Possible UTI Diabetes mellitus type 2 Hypertension Obesity, with a BMI of 37.5 kg/m sub acute influenza A infection Acute sepsis secondary to above Recommendation: Continue updrafts Patient remains on ceftriaxone and vancomycin as per infectious disease on the case, procalcitonin level is normal, consider stopping antibiotics especially if her chest x-ray shows improvement in the next 24 hours and consider discharge plan Continue Tamiflu although the patient is out of the window for treatment but considering her presentation we will continue Tamiflu Will continue to follow Time with Patient: Less than 30
[2023-05-23 17:10] LABS: Glucose,Whole Blood 184 mg/dL (70-110)
[2023-05-23] MEDS ORDERED: Potassium Replacement Protocol 1 EACH MISC MISCELLANE PRN (19:12)
[2023-05-23 20:21] LABS: Glucose,Whole Blood 213 mg/dL (70-110)
[2023-05-23] MEDS: POTASSIUM CHLORIDE ER 20 MEQ TAB.ER PO SCH (21:45)
[2023-05-24 06:20] LABS: Glucose,Whole Blood 191 mg/dL (70-110)
[2023-05-24 11:38] LABS: HCT 37.1 % (34.0-46.0); HGB 11.8 gm/dL (11.4-16.0); Hypochromasia Slight; MCH 31.1 pg (25.0-35.0); MCV 97.2 fL (80.0-100.0); Platelet Count 364 k/uL (150-450); Poikilocytosis Slight; RBC 3.81 m/uL (3.80-5.40); RDW 14.9 % (11.5-15.5); WBC 27.3 k/uL (3.8-10.6)
[2023-05-24 11:46] LABS: Glucose,Whole Blood 223 mg/dL (70-110)
[2023-05-24 11:52] LABS: Chloride 98 mmol/L (98-107)
[2023-05-24 11:53] LABS: ALT 20 U/L (4-34); AST 25 U/L (14-36); African American GFR (CKD) >90 (>60 ml/min/1.73 sqM); Albumin 3.4 g/dL (3.5-5.0); Alkaline Phosphatase 85 U/L (38-126); Anion Gap 8 mmol/L; Blood Urea Nitrogen 8 mg/dL (7-17); Calcium 8.4 mg/dL (8.4-10.2); Carbon Dioxide 30 mmol/L (22-30); Glucose 226 mg/dL (74-99); Non-African American GFR(CKD) >90 (>60 ml/min/1.73 sqM); Potassium 3.3 mmol/L (3.5-5.1); Sodium 136 mmol/L (137-145); Total Bilirubin 0.6 mg/dL (0.2-1.3); Total Protein 5.9 g/dL (6.3-8.2)
--- NOTE | 2023-05-24 13:59 | XR ---
EXAMINATION TYPE: XR chest 1V portable DATE OF EXAM: 05/24/2023 COMPARISON: 05/21/2023 INDICATION: Pneumonia TECHNIQUE: Single frontal view of the chest is obtained. FINDINGS: The heart size is upper limits of normal for size. The pulmonary vasculature is somewhat prominent. Scattered mild increased lung markings are present. Correlate for pulmonary edema. Findings are simil ar to comparison. IMPRESSION: 1. Critical correlation recommended for mild congestive heart failure.
--- NOTE | 2023-05-24 14:19 | P.PN ---
Subjective Progress Note Date: 05/24/23 Principal diagnosis: Acute hypoxic respiratory failure secondary to atypical pneumonia possibly viral pneumonia or community-acquired pneumonia I am seeing this patient in consultation today 05/21/2023 in the emergency room after she presented with exertional dyspnea, generalized weakness, and fatigue. Patient is a 68-year-old white female with past medical history significant for diabetes mellitus, hypertension. She reports flulike symptoms that started on the or april. They started with runny nose, sore throat, nonproductive cough, fevers/chills, reduced appetite. She never really fully recovered. More recently, she has been experiencing shortness of breath especially on exertion. She has been very weak and lightheaded. She did have a brief episode of nausea and vomiting while in the emergency room. She is currently sitting with bed, on 5 L/min nasal cannula, in no acute distress at rest. She is anxious. She did test positive for influenza A on arrival. Chest CT shows patchy bilateral groundglass opacities concerning for atypical pneumo kye. There is bilateral hilar and mediastinal adenopathy, likely reactive. CBC on arrival shows significant leukocytosis with a total WBC count of 36.5. Predominantly lymphocytes. Remaining CBC unremarkable. BMP on arrival: Sodium 134, potassium 2.8, chloride 89, serum bicarb 36, BUN 16, creatinine 0.48, glucose 178. LFTs not elevated. Troponin less than 0.012. NT proBNP 111. Urinalysis shows moderate leukocytes and rare pyuria. Patient denies any urinary complaints. Currently afebrile. Vital signs are stable. Reevaluate today on 05/22/2023, patient remains on 4 L nasal cannula, she is afebrile, feeling much better today compared to yesterday, very minimal cough, no wheezing, no shortness of breath, no chest pain. Continues to have leukocytosis with WBC count as high as 39.1 hemoglobin 13.5 basic metabolic profile is normal except for low potassium of 3.3. He remains empirically on vancomycin and cefepime, blood cultures remain negative,Urine cultures are negative so far. Patient is being followed by infectious disease on consultation Patient was reevaluated today on 05/23/2023, patient is feeling much better today, breathing a lot easier, on 2 L nasal cannula, O2 sats is 96%, patient does not seem to be in distress. Remains on antibiotics empirically in the form of vancomycin and cefepime, patient has made a significant improvement, and I am recommending repeat chest x-ray in a.m., and if not any worse, may consider discharge planning. In the meantime the patient is being followed by infectious disease, procalcitonin level has been negative. I believe we are dealing mostly with a viral type of atypical pneumonia Reevaluate today on 05/24/2023, patient is doing well continues to feel much better, clinically she is feeling much better than what is noted on the chest x- ray, I reviewed the chest x-ray today and it showing slight improvement in her atypical pneumonia. Patient would like to go home, and I have recommended possibly clearing the patient the next 24 hours. In the meantime continue present supportive care measures, patient is antibiotics but her procalcitonin level is not impressively elevated./Borderline elevated. Infectious disease is addressing her antibiotics, I believe we could possibly consider stopping the antibiotics and discharge the patient home in the next 24 hours Objective - Vital Signs Vital signs: Vital Signs Temp 97.6 F 05/24/23 09:23 Pulse 95 05/24/23 09:23 Resp 16 05/24/23 12:11 BP 157/79 05/24/23 12:11 Pulse Ox 92 L 05/24/23 12:11 FiO2 Intake & Output 05/23/23 05/24/23 05/24/23 18:59 06:59 18:59 Intake Total 618 118 Balance 618 118 Intake: Intake, IV Titration 260 Amount Sodium Chloride 0.9% 1, 260 000 ml @ 130 mls/hr IV . Q7H42M [facility] Rx#:[id number] Oral 358 118 Other: Voiding Method Toilet Toilet Toilet # Voids 2 2 - Exam GENERAL EXAM: Alert, 68-year-old white female, on 2 L nasal cannula 5% HEAD: Normocephalic and atraumatic EYES: Normal reaction of pupils, equal size. NOSE: Clear with pink turbinates. THROAT: No erythema or exudates. NECK: No masses, no JVD. CHEST: No chest wall deformity. LUNGS: Good breath sound bilaterally no crackles rhonchi or wheezes CVS: S1 and S2 normal with no audible murmur, regular rhythm. No extra heart sounds ABDOMEN: No hepatosplenomegaly, active bowel sounds, no guarding or rigidity. SKIN: No rashes CENTRAL NERVOUS SYSTEM: Alert oriented x 3 no gross focal deficit EXTREMITIES: No clubbing edema or cyanosis - Labs CBC & Chem 7: 05/24/23 10:53 05/24/23 10:53 Labs: Abnormal Lab Results - Last 24 Hours (Table) 05/23/23 05/23/23 05/24/23 Range/Units 17:08 20:17 06:16 WBC (3.8-10.6) k/uL Sodium (137-145) mmol/L Potassium (3.5-5.1) mmol/L Creatinine (0.52-1.04) mg/dL Glucose (74-99) mg/dL POC Glucose (mg/dL) 184 H 213 H 191 H (70-110) mg/dL Total Protein (6.3-8.2) g/dL Albumin (3.5-5.0) g/dL 05/24/23 05/24/23 05/24/23 Range/Units 10:53 10:53 11:44 WBC 27.3 H (3.8-10.6) k/uL Sodium 136 L (137-145) mmol/L Potassium 3.3 L (3.5-5.1) mmol/L Creatinine 0.46 L (0.52-1.04) mg/dL Glucose 226 H (74-99) mg/dL POC Glucose (mg/dL) 223 H (70-110) mg/dL Total Protein 5.9 L (6.3-8.2) g/dL Albumin 3.4 L (3.5-5.0) g/dL Microbiology - Last 24 Hours (Table) 05/20/23 19:20 Blood Culture - Preliminary Blood 05/20/23 19:35 Blood Culture - Preliminary Blood Assessment and Plan Assessment: Impression: Acute hypoxemic respiratory failure, secondary to subacute influenza A infe ction, chest CT shows patchy bilateral groundglass opacities concerning for atypical pneumonia/viral pneumonia, unable to rule out superimposed bacterial infection at this time. Acute leukocytosis/lymphocytosis, secondary to above Hypokalemia, being replaced Possible UTI Diabetes mellitus type 2 Hypertension Obesity, with a BMI of 37.5 kg/m sub acute influenza A infection Acute sepsis secondary to above Recommendation: Continue [facility]rench hospital antibiotics are being addressed by infectious disease, considering her procalcitonin level may de-escalate or discontinue antibiotics. Continue Tamiflu although the patient is out of the window for treatment but considering her presentation we will continue Tamiflu Consider discharge planning in the next 24 hours, patient is significantly improved based on her clinical findings Will continue to follow Time with Patient: Less than 30
--- NOTE | 2023-05-24 14:53 | P.PN ---
Subjective Progress Note Date: 05/24/23 patient is a 68-year-old lady with past medical history significant for hypertension, diabetes mellitus presented to ER for complaints of generalized weakness and lightheadedness. Patient r states she has not been feeling well for the last few weeks. Patient had a hard time getting around because of weak ness. Patient was complaining of chills but did not check her fever. Patient also complains of shortness of breath on exertion. Denies any chest pain. There is no complaint of productive cough. Patient has been complaining of lightheadedness. Patient also complaining of nausea. Because of the symptoms, patient came to the ER Initial lab work done in the ER showed WBC 36.5, hemoglobin 14.8, platelet count 255, sodium 134, potassium 2.8, BUN 16, creatinine 0.48 Influenza A detected Influenza B not detected RSV not detected COVID-19 not detected EKG done in the ER showed heart rate of 95, no ST segment elevation or depression seen, no T-wave inversions seen. Chest x-ray done in the ER cardiomegaly and mild pulmonary congestion CT chest done showed no evidence of PE. Patchy bilateral primarily subpleural groundglass opacity raising concern for infectious/inflammatory process Patient admitted to internal medicine service 05/21. Patient seen and examined. Laying in the bed comfortably, states that she feels better. Still on 5 L of oxygen. Complaining of shortness of breath on exertion. Still complaining of weakness. Blood work done this morning showed WBC 39.5, hemoglobin 13.5, platelet count 447, sodium 130, potassium 3.3, BUN 4, creatinine 0.51 05/22. Patient seen and examined., Ox requirements have improved, currently on 2 L of oxygen. Denies any shortness of breath at rest, gets short of breath on exertion. WBC is 24 which is improved from yesterday of 39.1, hemoglobin is 11.6, platelet count is 349. 05/23. Patient seen and examined. Still complaining of shortness of breath, still feels like she is not ready to go home today. Complaining of lethargy and weakness. Labs done showed WBC 27.3, hemoglobin 11.8, sodium 136, potassium 3.3, BUN 8, creatinine 0.46 REVIEW OF SYSTEMS: CONSTITUTIONAL: No fever, no malaise,. CARDIOVASCULAR: No chest pain, no palpitations, no syncope. PULMONARY: As mentioned above GASTROINTESTINAL: No diarrhea, no nausea, no vomiting, no abdominal pain. NEUROLOGICAL: No headaches, no weakness, PHYSICAL EXAMINATION: GENERAL: The patient is alert and oriented x3, not in any acute distress. Well developed, well nourished. HEENT: Pupils are round and equally reacting to light. EOMI. No scleral icterus. No conjunctival pallor. Normocephalic, atraumatic. No pharyngeal erythema. No thyromegaly. CARDIOVASCULAR: S1 and S2 present. No murmurs, rubs, or gallops. PULMONARY: Chest is clear to auscultation, no wheezing or crackles. ABDOMEN: Soft, nontender, nondistended, normoactive bowel sounds. No palpable organomegaly. MUSCULOSKELETAL: No joint swelling or deformity. EXTREMITIES: No cyanosis, clubbing, or pedal edema. NEUROLOGICAL: Gross neurological examination did not reveal any focal deficits. SKIN: No rashes. Assessment and plan Acute hypoxemic respiratory failure Sepsis present on admission Influenza A infection Bacterial pneumonia Hyponatremia Hypokalemia Diabetes mellitus Hypertension Monitor vital signs Monitor CBC Monitor CMP Continue telemetry monitoring Follow-up on blood cultures Aggressive bronchopulmonary hygiene Encourage use of I-S Continue Tamiflu Rocephin discontinued, completed 3 days of azithromycin Blood sugar levels, continue sliding scale insulin Continue Norvasc Continue breathing treatments Pulmonary following ID following Labs and medication were reviewed.. Continue same treatment. Continue with symptomatic treatment. Resume home medication. Monitor labs and vitals. DVT and GI prophylaxis. Further recommendations as per clinical course of the patient Dictation was produced using [employer] dictation software. please excuse any grammatical, word or spelling errors. Objective - Vital Signs Vital signs: Vital Signs Temp 97.6 F 05/24/23 09:23 Pulse 95 05/24/23 09:23 Resp 16 05/24/23 12:11 BP 157/79 05/24/23 12:11 Pulse Ox 92 L 05/24/23 12:11 FiO2 Intake & Output 05/23/23 05/24/23 05/24/23 18:59 06:59 18:59 Intake Total 618 218 Balance 618 218 Intake: Intake, IV Titration 260 100 Amount Sodium Chloride 0.9% 1, 260 000 ml @ 130 mls/hr IV . Q7H42M [facility] Rx#:[id number] cefTRIAXone 2 gm In 100 Sodium Chloride 0.9% 50 ml @ 100 mls/hr IVPB Q24HR [facility] Rx#:[id number] Oral 358 118 Other: Voiding Method Toilet Toilet Toilet # Voids 2 2 - Labs CBC & Chem 7: 05/24/23 10:53 05/24/23 10:53 Labs: Abnormal Lab Results - Last 24 Hours (Table) 05/23/23 05/23/23 05/24/23 Range/Units 17:08 20:17 06:16 WBC (3.8-10.6) k/uL Sodium (137-145) mmol/L Potassium (3.5-5.1) mmol/L Creatinine (0.52-1.04) mg/dL Glucose (74-99) mg/dL POC Glucose (mg/dL) 184 H 213 H 191 H (70-110) mg/dL Total Protein (6.3-8.2) g/dL Albumin (3.5-5.0) g/dL 05/24/23 05/24/23 05/24/23 Range/Units 10:53 10:53 11:44 WBC 27.3 H (3.8-10.6) k/uL Sodium 136 L (137-145) mmol/L Potassium 3.3 L (3.5-5.1) mmol/L Creatinine 0.46 L (0.52-1.04) mg/dL Glucose 226 H (74-99) mg/dL POC Glucose (mg/dL) 223 H (70-110) mg/dL Total Protein 5.9 L (6.3-8.2) g/dL Albumin 3.4 L (3.5-5.0) g/dL Microbiology - Last 24 Hours (Table) 05/20/23 19:20 Blood Culture - Preliminary Blood 05/20/23 19:35 Blood Culture - Preliminary Blood
--- NOTE | 2023-05-24 16:25 | P.PN ---
Subjective Progress Note Date: 05/24/23 Principal diagnosis: Reason for follow-up is influenza A pneumonia and leukocytosis Patient is a 68-year-old female past medical history significant for diabetes mellitus hypertension uterine tumor status post hysterectomy presenting to the hospital for evaluation of generalized weakness lightheadedness as well as increasing shortness of breath, patient tested positive for influenza, CT of the chest with patchy bilateral pulmonary infiltrate. On today's visit that is 05/24/2023,the patient denies any fever or any chills, patient is breathing comfortably on 2 L nasal cannula oxygen, the patient denies chest pain shortness of breath and denies any worsening cough, patient denies abdominal pain, no nausea vomiting or diarrhea. Patient white count of 27.3 creatinine 0.46 blood culture negative sputum not collected Objective - Vital Signs Vital signs: Vital Signs Temp 97.6 F 05/24/23 09:23 Pulse 95 05/24/23 09:23 Resp 16 05/24/23 12:11 BP 157/79 05/24/23 12:11 Pulse Ox 92 L 05/24/23 12:11 FiO2 Intake & Output 05/23/23 05/24/23 05/24/23 18:59 06:59 18:59 Intake Total 618 218 Balance 618 218 Intake: Intake, IV Titration 260 100 Amount Sodium Chloride 0.9% 1, 260 000 ml @ 130 mls/hr IV . Q7H42M [facility] Rx#:[id number] cefTRIAXone 2 gm In 100 Sodium Chloride 0.9% 50 ml @ 100 mls/hr IVPB Q24HR [facility] Rx#:[id number] Oral 358 118 Other: Voiding Method Toilet Toilet Toilet # Voids 2 2 - Exam GENERAL DESCRIPTION: An elderly female lying in bed in no distress RESPIRATORY SYSTEM: Unlabored breathing , decreased breath sounds at bases HEART: S1 S2 regular rate and rhythm , ABDOMEN: Soft , no tenderness EXTREMITIES: No edema feet - Labs CBC & Chem 7: 05/24/23 10:53 05/24/23 10:53 Labs: Abnormal Lab Results - Last 24 Hours (Table) 05/23/23 05/23/23 05/24/23 Range/Units 17:08 20:17 06:16 WBC (3.8-10.6) k/uL Sodium (137-145) mmol/L Potassium (3.5-5.1) mmol/L Creatinine (0.52-1.04) mg/dL Glucose (74-99) mg/dL POC Glucose (mg/dL) 184 H 213 H 191 H (70-110) mg/dL Total Protein (6.3-8.2) g/dL Albumin (3.5-5.0) g/dL 05/24/23 05/24/23 05/24/23 Range/Units 10:53 10:53 11:44 WBC 27.3 H (3.8-10.6) k/uL Sodium 136 L (137-145) mmol/L Potassium 3.3 L (3.5-5.1) mmol/L Creatinine 0.46 L (0.52-1.04) mg/dL Glucose 226 H (74-99) mg/dL POC Glucose (mg/dL) 223 H (70-110) mg/dL Total Protein 5.9 L (6.3-8.2) g/dL Albumin 3.4 L (3.5-5.0) g/dL Microbiology - Last 24 Hours (Table) 05/20/23 19:20 Blood Culture - Preliminary Blood 05/20/23 19:35 Blood Culture - Preliminary Blood Assessment and Plan (1) Influenza A Current Visit: Yes Status: Acute Code(s): J10.1 - FLU DUE TO OTH IDENT I NFLUENZA VIRUS W OTH RESP MANIFEST SNOMED Code(s): 803052407 (2) Lymphocytosis Current Visit: Yes Status: Acute Code(s): D72.820 - LYMPHOCYTOSIS (SYMPTOMATIC) SNOMED Code(s): 59898843 (3) Pneumonia Current Visit: Yes Status: Acute Code(s): J18.9 - PNEUMONIA, UNSPECIFIED ORGANISM SNOMED Code(s): 469827110 Plan: 1patient presented to hospital with sepsis in this patient who did have tachycardia elevated white count source is likely pneumonia in this patient tested positive for influenza A and concerning for secondary bacterial pneumonia 2-we will try to obtain a sputum for Gram stain culture, currently waiting for CRP and a procalcitonin level as well as urine for Legionella antigen is negative 3-leukocytosis with predominantly elevated lymphocyte count questionable hematological etiology, 4-patient to continue with the Tamiflu along with Rocephin, and monitor clinical course closely Dictation was produced using [employer] dictation software. please excuse any grammatical, word or spelling errors. Time with Patient: Less than 30
[2023-05-24 16:47] LABS: Glucose,Whole Blood 272 mg/dL (70-110)
[2023-05-24 20:07] LABS: Glucose,Whole Blood 244 mg/dL (70-110)
[2023-05-25 00:59] LABS: African American GFR (CKD) >90 (>60 ml/min/1.73 sqM); Non-African American GFR(CKD) >90 (>60 ml/min/1.73 sqM)
[2023-05-25] MEDS ORDERED: VANCOMYCIN TROUGH DUE 1 EACH MISC MISCELLANE ONE (01:00)
[2023-05-25 06:09] LABS: Glucose,Whole Blood 219 mg/dL (70-110)
[2023-05-25 11:43] LABS: Glucose,Whole Blood 171 mg/dL (70-110)
--- NOTE | 2023-05-25 13:16 | P.PN ---
Subjective Progress Note Date: 05/25/23 patient is a 68-year-old lady with past medical history significant for hypertension, diabetes mellitus presented to ER for complaints of generalized weakness and lightheadedness. Patient r states she has not been feeling well for the last few weeks. Patient had a hard time getting around because of weak ness. Patient was complaining of chills but did not check her fever. Patient also complains of shortness of breath on exertion. Denies any chest pain. There is no complaint of productive cough. Patient has been complaining of lightheadedness. Patient also complaining of nausea. Because of the symptoms, patient came to the ER Initial lab work done in the ER showed WBC 36.5, hemoglobin 14.8, platelet count 255, sodium 134, potassium 2.8, BUN 16, creatinine 0.48 Influenza A detected Influenza B not detected RSV not detected COVID-19 not detected EKG done in the ER showed heart rate of 95, no ST segment elevation or depression seen, no T-wave inversions seen. Chest x-ray done in the ER cardiomegaly and mild pulmonary congestion CT chest done showed no evidence of PE. Patchy bilateral primarily subpleural groundglass opacity raising concern for infectious/inflammatory process Patient admitted to internal medicine service 05/21. Patient seen and examined. Laying in the bed comfortably, states that she feels better. Still on 5 L of oxygen. Complaining of shortness of breath on exertion. Still complaining of weakness. Blood work done this morning showed WBC 39.5, hemoglobin 13.5, platelet count 447, sodium 130, potassium 3.3, BUN 4, creatinine 0.51 05/22. Patient seen and examined., Ox requirements have improved, currently on 2 L of oxygen. Denies any shortness of breath at rest, gets short of breath on exertion. WBC is 24 which is improved from yesterday of 39.1, hemoglobin is 11.6, platelet count is 349. 05/23. Patient seen and examined. Still complaining of shortness of breath, still feels like she is not ready to go home today. Complaining of lethargy and weakness. Labs done showed WBC 27.3, hemoglobin 11.8, sodium 136, potassium 3.3, BUN 8, creatinine 0.46 05/24. Patient seen and examined. Currently on 1 L of oxygen. Patient did complete a course of Tamiflu. Complain of shortness of breath on exertion. Possible discharge in next 24 hours REVIEW OF SYSTEMS: CONSTITUTIONAL: No fever, no malaise,. CARDIOVASCULAR: No chest pain, no palpitations, no syncope. PULMONARY: As mentioned above GASTROINTESTINAL: No diarrhea, no nausea, no vomiting, no abdominal pain. NEUROLOGICAL: No headaches, no weakness, PHYSICAL EXAMINATION: GENERAL: The patient is alert and oriented x3, not in any acute distress. Well developed, well nourished. HEENT: Pupils are round and equally reacting to light. EOMI. No scleral icterus. No conjunctival pallor. Normocephalic, atraumatic. No pharyngeal erythema. No thyromegaly. CARDIOVASCULAR: S1 and S2 present. No murmurs, rubs, or gallops. PULMONARY: Chest is clear to auscultation, no wheezing or crackles. ABDOMEN: Soft, nontender, nondistended, normoactive bowel sounds. No palpable organomegaly. MUSCULOSKELETAL: No joint swelling or deformity. EXTREMITIES: No cyanosis, clubbing, or pedal edema. NEUROLOGICAL: Gross neurological examination did not reveal any focal deficits. SKIN: No rashes. Assessment and plan Acute hypoxemic respiratory failure Sepsis present on admission Influenza A infection Bacterial pneumonia Hyponatremia Hypokalemia Diabetes mellitus Hypertension Monitor vital signs Monitor CBC Monitor CMP Continue telemetry monitoring Follow-up on blood cultures Aggressive bronchopulmonary hygiene Encourage use of I-S Completed Tamiflu Rocephin discontinued, completed 3 days of azithromycin Blood sugar levels, continue sliding scale insulin Continue Norvasc Continue breathing treatments Pulmonary following ID following Labs and medication were reviewed.. Continue same treatment. Continue with symptomatic treatment. Resume home medication. Monitor labs and vitals. DVT and GI prophylaxis. Further recommendations as per clinical course of the patient Dictation was produced using [employer] dictation software. please excuse any grammatical, word or spelling errors. Objective - Vital Signs Vital signs: Vital Signs Temp 98.0 F 05/24/23 20:00 Pulse 92 05/25/23 04:00 Resp 18 05/25/23 04:00 BP 142/78 05/25/23 04:00 Pulse Ox 96 05/25/23 04:00 FiO2 Intake & Output 05/24/23 05/25/23 05/25/23 18:59 06:59 18:59 Intake Total 576 0 Balance 576 0 Intake: Intake, IV Titration 100 Amount cefTRIAXone 2 gm In 100 Sodium Chloride 0.9% 50 ml @ 100 mls/hr IVPB Q24HR [facility] Rx#:[id number] Oral 476 0 Other: Voiding Method Toilet Toilet # Voids 1 - Labs CBC & Chem 7: 05/24/23 10:53 05/25/23 00:34 Labs: Abnormal Lab Results - Last 24 Hours (Table) 05/24/23 05/24/23 05/24/23 Range/Units 10:53 10:53 11:44 WBC 27.3 H (3.8-10.6) k/uL Sodium 136 L (137-145) mmol/L Potassium 3.3 L (3.5-5.1) mmol/L Creatinine 0.46 L (0.52-1.04) mg/dL Glucose 226 H (74-99) mg/dL POC Glucose (mg/dL) 223 H (70-110) mg/dL Total Protein 5.9 L (6.3-8.2) g/dL Albumin 3.4 L (3.5-5.0) g/dL 05/24/23 05/24/23 05/25/23 Range/Units 16:45 20:05 00:34 WBC (3.8-10.6) k/uL Sodium (137-145) mmol/L Potassium (3.5-5.1) mmol/L Creatinine 0.47 L (0.52-1.04) mg/dL Glucose (74-99) mg/dL POC Glucose (mg/dL) 272 H 244 H (70-110) mg/dL Total Protein (6.3-8.2) g/dL Albumin (3.5-5.0) g/dL 05/25/23 Range/Units 06:08 WBC (3.8-10.6) k/uL Sodium (137-145) mmol/L Potassium (3.5-5.1) mmol/L Creatinine (0.52-1.04) mg/dL Glucose (74-99) mg/dL POC Glucose (mg/dL) 219 H (70-110) mg/dL Total Protein (6.3-8.2) g/dL Albumin (3.5-5.0) g/dL
--- NOTE | 2023-05-25 14:19 | P.PN ---
Subjective Progress Note Date: 05/25/23 Principal diagnosis: Acute hypoxic respiratory failure secondary to atypical pneumonia possibly viral pneumonia or community-acquired pneumonia I am seeing this patient in consultation today 05/21/2023 in the emergency room after she presented with exertional dyspnea, generalized weakness, and fatigue. Patient is a 68-year-old white female with past medical history significant for diabetes mellitus, hypertension. She reports flulike symptoms that started on the or april. They started with runny nose, sore throat, nonproductive cough, fevers/chills, reduced appetite. She never really fully recovered. More recently, she has been experiencing shortness of breath especially on exertion. She has been very weak and lightheaded. She did have a brief episode of nausea and vomiting while in the emergency room. She is currently sitting with bed, on 5 L/min nasal cannula, in no acute distress at rest. She is anxious. She did test positive for influenza A on arrival. Chest CT shows patchy bilateral groundglass opacities concerning for atypical pneumo kye. There is bilateral hilar and mediastinal adenopathy, likely reactive. CBC on arrival shows significant leukocytosis with a total WBC count of 36.5. Predominantly lymphocytes. Remaining CBC unremarkable. BMP on arrival: Sodium 134, potassium 2.8, chloride 89, serum bicarb 36, BUN 16, creatinine 0.48, glucose 178. LFTs not elevated. Troponin less than 0.012. NT proBNP 111. Urinalysis shows moderate leukocytes and rare pyuria. Patient denies any urinary complaints. Currently afebrile. Vital signs are stable. Reevaluate today on 05/22/2023, patient remains on 4 L nasal cannula, she is afebrile, feeling much better today compared to yesterday, very minimal cough, no wheezing, no shortness of breath, no chest pain. Continues to have leukocytosis with WBC count as high as 39.1 hemoglobin 13.5 basic metabolic profile is normal except for low potassium of 3.3. He remains empirically on vancomycin and cefepime, blood cultures remain negative,Urine cultures are negative so far. Patient is being followed by infectious disease on consultation Patient was reevaluated today on 05/23/2023, patient is feeling much better today, breathing a lot easier, on 2 L nasal cannula, O2 sats is 96%, patient does not seem to be in distress. Remains on antibiotics empirically in the form of vancomycin and cefepime, patient has made a significant improvement, and I am recommending repeat chest x-ray in a.m., and if not any worse, may consider discharge planning. In the meantime the patient is being followed by infectious disease, procalcitonin level has been negative. I believe we are dealing mostly with a viral type of atypical pneumonia Reevaluate today on 05/24/2023, patient is doing well continues to feel much better, clinically she is feeling much better than what is noted on the chest x- ray, I reviewed the chest x-ray today and it showing slight improvement in her atypical pneumonia. Patient would like to go home, and I have recommended possibly clearing the patient the next 24 hours. In the meantime continue present supportive care measures, patient is antibiotics but her procalcitonin level is not impressively elevated./Borderline elevated. Infectious disease is addressing her antibiotics, I believe we could possibly consider stopping the antibiotics and discharge the patient home in the next 24 hours Reeval today on 05/25/2023, continues to clinically improve, chest x-ray continues to show bilateral atypical pneumonia clinically however the patient is doing much better. Breathing a lot easier. Her procalcitonin level on this admission was borderline, infectious disease discontinued her antibiotics. I am actually clearing the patient for discharge and follow-up on outpatient basis however the problem is patient is desaturating down to the high 80s with walking, and she has O2 sats is 93% on room air. Patient may need home O2 and this will be arranged for tomorrow Objective - Vital Signs Vital signs: Vital Signs Temp 98.0 F 05/24/23 20:00 Pulse 84 05/25/23 11:54 Resp 18 05/25/23 08:00 BP 142/78 05/25/23 04:00 Pulse Ox 93 L 05/25/23 11:41 FiO2 Intake & Output 05/24/23 05/25/23 05/25/23 18:59 06:59 18:59 Intake Total 576 120 Balance 576 120 Intake: Intake, IV Titration 100 Amount cefTRIAXone 2 gm In 100 Sodium Chloride 0.9% 50 ml @ 100 mls/hr IVPB Q24HR [facility] Rx#:[id number] Oral 476 120 Other: Voiding Method Toilet Toilet Toilet # Voids 1 2 - Exam GENERAL EXAM: Alert, 68-year-old white female, on room air HEAD: Normocephalic and atraumatic EYES: Normal reaction of pupils, equal size. NOSE: Clear with pink turbinates. THROAT: No erythema or exudates. NECK: No masses, no JVD. CHEST: No chest wall deformity. LUNGS: Good breath sound bilaterally no crackles rhonchi or wheezes CVS: S1 and S2 normal with no audible murmur, regular rhythm. No extra heart sounds ABDOMEN: No hepatosplenomegaly, active bowel sounds, no guarding or rigidity. SKIN: No rashes CENTRAL NERVOUS SYSTEM: Alert oriented x 3 no gross focal deficit EXTREMITIES: No clubbing edema or cyanosis - Labs CBC & Chem 7: 05/24/23 10:53 05/25/23 00:34 Labs: Abnormal Lab Results - Last 24 Hours (Table) 05/24/23 05/24/23 05/25/23 Range/Units 16:45 20:05 00:34 Creatinine 0.47 L (0.52-1.04) mg/dL POC Glucose (mg/dL) 272 H 244 H (70-110) mg/dL 05/25/23 05/25/23 Range/Units 06:08 11:41 Creatinine (0.52-1.04) mg/dL POC Glucose (mg/dL) 219 H 171 H (70-110) mg/dL Assessment and Plan Assessment: Impression: Acute hypoxemic respiratory failure, secondary to subacute influenza A infection, chest CT shows patchy bilateral groundglass opacities concerning for atypical pneumonia/viral pneumonia, unable to rule out superimposed bacterial infection at this time. Acute leukocytosis/lymphocytosis, secondary to above Hypokalemia, being replaced Possible UTI Diabetes mellitus type 2 Hypertension Obesity, with a BMI of 37.5 kg/m sub acute influenza A infection Acute sepsis secondary to above Recommendation: Patient is now off antibiotics Finished full course treatment with Tamiflu Arrange for home O2 and possibly discharge in a.m. Follow-up with me on outpatient basis in 2 weeks Will continue to follow Time with Patient: Less than 30
--- NOTE | 2023-05-25 16:01 | P.PN ---
Subjective Progress Note Date: 05/25/23 Principal diagnosis: Reason for follow-up is influenza A pneumonia and leukocytosis Patient is a 68-year-old female past medical history significant for diabetes mellitus hypertension uterine tumor status post hysterectomy presenting to the hospital for evaluation of generalized weakness lightheadedness as well as increasing shortness of breath, patient tested positive for influenza, CT of the chest with patchy bilateral pulmonary infiltrate. On today's visit that is 05/25/2023,the patient remains to be afebrile, patient is on 2 L nasal cannula supplemental oxygen and denies any shortness of breath no chest pain and cough has decreased intensity no sputum production.Patient denies having any nausea or vomiting, no abdominal pain and no diarrhea has been reported Patient did have a creatinine of 0.47 no CBC was done today blood culture has been negative Objective - Vital Signs Vital signs: Vital Signs Temp 97.9 F 05/25/23 15:00 Pulse 86 05/25/23 15:00 Resp 18 05/25/23 15:00 BP 132/83 05/25/23 15:00 Pulse Ox 98 05/25/23 15:00 FiO2 Intake & Output 05/24/23 05/25/23 05/25/23 18:59 06:59 18:59 Intake Total 576 120 Balance 576 120 Intake: Intake, IV Titration 100 Amount cefTRIAXone 2 gm In 100 Sodium Chloride 0.9% 50 ml @ 100 mls/hr IVPB Q24HR [facility] Rx#:[id number] Oral 476 120 Other: Voiding Method Toilet Toilet Toilet # Voids 1 2 - Exam GENERAL DESCRIPTION: An elderly female lying in bed in no distress RESPIRATORY SYSTEM: Unlabored breathing , decreased breath sounds at bases HEART: S1 S2 regular rate and rhythm , ABDOMEN: Soft , no tenderness EXTREMITIES: No edema feet - Labs CBC & Chem 7: 05/24/23 10:53 05/25/23 00:34 Labs: Abnormal Lab Results - Last 24 Hours (Table) 05/24/23 05/24/23 05/25/23 Range/Units 16:45 20:05 00:34 Creatinine 0.47 L (0.52-1.04) mg/dL POC Glucose (mg/dL) 272 H 244 H (70-110) mg/dL 05/25/23 05/25/23 Range/Units 06:08 11:41 Creatinine (0.52-1.04) mg/dL POC Glucose (mg/dL) 219 H 171 H (70-110) mg/dL Assessment and Plan (1) Influenza A Current Visit: Yes Status: Acute Code(s): J10.1 - FLU DUE TO OTH IDENT INFLUENZA VIRUS W OTH RESP MANIFEST SNOMED Code(s): 697974242 (2) Lymphocytosis Current Visit: Yes Status: Acute Code(s): D72.820 - LYMPHOCYTOSIS (SYMPTOMATIC) SNOMED Code(s): 95215795 (3) Pneumonia Current Visit: Yes Status: Acute Code(s): J18.9 - PNEUMONIA, UNSPECIFIED ORGANISM SNOMED Code(s): 734949929 Plan: 1patient presented to hospital with sepsis in this patient who did have tachycardia elevated white count source is likely pneumonia in this patient tested positive for influenza A and concerning for secondary bacterial pneumonia 2-leukocytosis with predominantly elevated lymphocyte count questionable hematological etiology, 4-patient has completed a 5-day course of Tamiflu and Rocephin and will monitor closely Dictation was produced using [employer] dictation software. please excuse any grammatical, word or spelling errors. Time with Patient: Less than 30
[2023-05-25 16:23] LABS: Glucose,Whole Blood 244 mg/dL (70-110)
[2023-05-25 20:03] LABS: Glucose,Whole Blood 187 mg/dL (70-110)
[2023-05-26 03:50] VITALS: TEMP 98.2
[2023-05-26 06:20] LABS: Glucose,Whole Blood 210 mg/dL (70-110)
[2023-05-26 11:27] LABS: Glucose,Whole Blood 282 mg/dL (70-110)
[2023-05-26 14:13] VITALS: BMI 37.5
[2023-05-26 16:56] LABS: Glucose,Whole Blood 188 mg/dL (70-110)
[2023-05-26 17:07] VITALS: BP 142/88; RESP 18
[2023-05-26 17:47] VITALS: PULSE 92
--- NOTE | 2023-05-26 23:27 | P.DS ---
Providers Date of admission: 05/21/23 09:26 Attending physician: Richmond Byrne Consults: 05/20/23 20:09 Consult Physician Routine Consulting Provider: Parul Kelley Consult Reason/Comments: ?pneumonia Do you want consulting provider notified?: Yes, Notify in am 05/21/23 09:47 Consult Physician Routine Consulting Provider: Renato Holcomb Consult Reason/Comments: Sepsis, pneumonia Do you want consulting provider notified?: Yes Primary care physician: Richmond Byrne Hospital Course: diagnoses Acute hypoxemic respiratory failure, patient will be discharged on oxygen at home Sepsis present on admission Influenza A infection Bacterial pneumonia Significant leukocytosis, rule out malignancy, patient aware and patient is going to follow-up with PCP who is aware as well Hyponatremia Hypokalemia Diabetes mellitus Hypertension Hospital course: patient is a 68-year-old lady with past medical history significant for hypertension, diabetes mellitus presented to ER for complaints of generalized weakness and lightheadedness. Patient r states she has not been feeling well for the last few weeks. Patient had a hard time getting around because of weakness. Patient was complaining of chills but did not check her fever. With chest x-ray showing perihilar infiltrate with resultant acute hypoxic respiratory failure which is improved but not completely resolved as patient qualified for oxygen which was delivered to her at bedside prior to discharge as she confirms to me. There was suspicion of acute urinary tract infection but today patient denies any urinary symptoms She denies chest pain or dyspnea no coughing. No abdominal pain. She tolerates diet well Patient is crying asking to be discharged home today she states she is getting fine back to her normal self and that she has to take care of her autistic son and she is requesting adamantly to be discharged today. Actually patient looks clinically stable. Patient also cleared for discharge by pulmonary service Patient cleared for discharge by ID team. Patient finished her treatment with Tamiflu and antibiotics from bacterial infection and does not need antibiotic currently. Actually patient is not on antibiotics today prior to discharge. Patient has significant leukocytosis 24-36 during hospitalization, this is new for the patient, patient informed about this lesion with the suspicion of malignancy and she verbalized understanding and acceptance to follow-up as an outpatient Problems and management plan were discussed with the patient and he verbalized understanding and acceptance Patient was found stable and can be discharged home in guarded prognosis however he needs follow-up as an outpatient. Patient was instructed to follow up with PCP Dr. Byrne within one week and patient agrees. Of note Dr. Byrne out of town and I spoke with his information services assistant MILLED RICE BROKER Fatuma I called her and discussed the case with her and she currently took note of her problems including but not limited to leukocytosis and the need to rule out hematological malignancy or disease. Patient appointment made for her on 06/01 this coming Friday and patient is agreeable. Also I called Dr. Merida/Dr. Guerrero office to make an appointment and they are going to contact the patient Patient was instructed to follow-up with intern Dr. James in 2 weeks and she is agreeable Physical exam Gen: patient is a AAOx3, no distress CVS: S1-S2, RRR, no murmur Lungs: B/L CTA, no wheezing Abdomen: soft, no distention, no tenderness, positive bowel sounds Extremity: no leg edema or induration Time spent more than 35 minutes Patient Condition at Discharge: Stable Plan - Discharge Summary Discharge Rx Participant: No New Discharge Prescriptions: New Acetaminophen Tab [Tylenol] 650 mg PO Q6HR PRN tab PRN Reason: Fever And/ Or Pain Albuterol Inhaler [Ventolin Hfa Inhaler] 1 puff INHALATION TID #8 gm Continue amLODIPine BESYLATE/BENAZEPRIL [amLODIPine BESYLATE/BENAZEPRIL 10-20 mg] 1 cap PO DAILY Pioglitazone [Actos] 30 mg PO DAILY metFORMIN HCL [Glucophage] 500 mg PO BID-W/MEALS Ibuprofen/Diphenhydramine Cit [Motrin Pm Caplet] 3 tab PO HS Discharge Medication List Ibuprofen/Diphenhydramine Cit [Motrin Pm Caplet] 3 tab PO HS 05/20/23 [History] Pioglitazone [Actos] 30 mg PO DAILY 05/20/23 [History] amLODIPine BESYLATE/BENAZEPRIL [amLODIPine BESYLATE/BENAZEPRIL 10-20 mg] 1 cap PO DAILY 05/20/23 [History] metFORMIN HCL [Glucophage] 500 mg PO BID-W/MEALS 05/20/23 [History] Acetaminophen Tab [Tylenol] 650 mg PO Q6HR PRN tab 05/26/23 [Rx] Albuterol Inhaler [Ventolin Hfa Inhaler] 1 puff INHALATION TID #8 gm 05/26/23 [Rx] Follow up Appointment(s)/Referral(s): Parul Kelley MD [STAFF PHYSICIAN] - 2 Weeks (please call and make appointment ) Jamarcus Merida MD [STAFF PHYSICIAN] - 1 Week (blood disease doctor for possible blood malignancy. Please call and make appointment ) [facility] [NON-STAFF] - (oxygen company ) Richmond Byrne MD [Primary Care Provider] - 06/02/23 2:00 pm (with MANN Burris ) Patient Instructions/Handouts: Influenza (DC), Leukocytosis (DC), Hypoxia (GEN) Activity/Diet/Wound Care/Special Instructions: heart healthy diet activity is restricted till you see your doctor Discharge Disposition: HOME SELF-CARE
--- NOTE | 2023-05-27 14:47 | P.PN ---
Subjective Progress Note Date: 05/26/23 Principal diagnosis: Reason for follow-up is influenza A pneumonia and leukocytosis Patient is a 68-year-old female past medical history significant for diabetes mellitus hypertension uterine tumor status post hysterectomy presenting to the hospital for evaluation of generalized weakness lightheadedness as well as increasing shortness of breath, patient tested positive for influenza, CT of the chest with patchy bilateral pulmonary infiltrate. On today's visit that is 05/26/2023, the patient continues to be afebrile, the patient is on room air and breathing comfortably, the Pt denies having any chest pain and cough has decreased in intensity not bring up any sputum, the patient denies having any abdominal pain no vomiting or any diarrhea, feeling better wants to go home. No new labs has been obtained today blood culture has been negative Objective - Vital Signs Vital signs: Vital Signs Temp 98.2 F 05/26/23 09:53 Pulse 90 05/26/23 11:22 Resp 18 05/26/23 09:53 BP 126/68 05/26/23 09:53 Pulse Ox 91 L 05/26/23 09:53 FiO2 Intake & Output 05/25/23 05/26/23 05/26/23 18:59 06:59 18:59 Intake Total 240 250 Balance 240 250 Intake: IV 10 Invasive Line 1 10 Oral 240 240 Other: Voiding Method Toilet Toilet Toilet # Voids 2 2 - Exam GENERAL DESCRIPTION: An elderly female lying in bed in no distress RESPIRATORY SYSTEM: Unlabored breathing , decreased breath sounds at bases HEART: S1 S2 regular rate and rhythm , ABDOMEN: Soft , no tenderness EXTREMITIES: No edema feet - Labs CBC & Chem 7: 05/24/23 10:53 05/25/23 00:34 Labs: Abnormal Lab Results - Last 24 Hours (Table) 05/25/23 05/25/23 05/25/23 Range/Units 11:41 16:21 20:01 POC Glucose (mg/dL) 171 H 244 H 187 H (70-110) mg/dL 05/26/23 05/26/23 Range/Units 06:17 11:23 POC Glucose (mg/dL) 210 H 282 H (70-110) mg/dL Microbiology - Last 24 Hours (Table) 05/20/23 19:20 Blood Culture - Final Blood 05/20/23 19:35 Blood Culture - Final Blood Assessment and Plan (1) Influenza A Status: Acute Code(s): J10.1 - FLU DUE TO OTH IDENT INFLUENZA VIRUS W OTH RESP MANIFEST SNOMED Code(s): 841780948 (2) Lymphocytosis Status: Acute Code(s): D72.820 - LYMPHOCYTOSIS (SYMPTOMATIC) SNOMED Code(s): 47613015 (3) Pneumonia Status: Acute Code(s): J18.9 - PNEUMONIA, UNSPECIFIED ORGANISM SNOMED Code(s): 281070082 Plan: 1patient presented to hospital with sepsis in this patient who did have tachycardia elevated white count source is likely pneumonia in this patient tested positive for influenza A and concerning for secondary bacterial pneumonia 2-leukocytosis with predominantly elevated lymphocyte count questionable hematological etiology, and will benefit from hematology evaluation 4-patient has completed a 5-day course of Tamiflu and Rocephin and currently doing better wants to go home no need for any antibiotic on discharge Dictation was produced using [employer] dictation software. please excuse any grammatical, word or spelling errors. Time with Patient: Less than 30
== END 2023-05-26 18:34 | disposition home or self-care (01) | DRG 871 ==
LOC: SUPCPDRO 15:52 → EC 15:52 → 6NMEDSUR 20:11 → OBSVTOIN 05-21 09:26 → 3SCARD 05-21 14:44
PROVIDERS: ADMIT Family Medicine; ATTEND Family Medicine
DX: A41.9 Sepsis, unspecified organism (principal); J10.08 Influenza due to other identified influenza virus with other specified pneumonia; J15.9 Unspecified bacterial pneumonia; J96.01 Acute respiratory failure with hypoxia; E87.1 Hypo-osmolality and hyponatremia; R82.81 Pyuria; R59.0 Localized enlarged lymph nodes; R62.7 Adult failure to thrive; E66.9 Obesity, unspecified; E87.6 Hypokalemia; Z68.37 Body mass index [BMI] 37.0-37.9, adult; D72.820 Lymphocytosis (symptomatic); I10 Essential (primary) hypertension; E11.9 Type 2 diabetes mellitus without complications; Z79.84 Long term (current) use of oral hypoglycemic drugs; Z11.52 Encounter for screening for COVID-19; Z79.4 Long term (current) use of insulin; Z79.899 Other long term (current) drug therapy
CPT/HCPCS: 36415; 71045; 71046; 71275; 80048; 80053; 80202; 81001; 82565; 83036; 83605; 83735; 83880; 84145; 84484; 85025; 85027; 85610; 85730; 87040; 87086; 87449; 87636; 93005; 94640; 94760; 96361; 96365; 96366; 96367; 96375; 99285

== ENCOUNTER 2024-06-26 12:56 | Observation (INO) | payer MEDICARE, OTHER ==
[2024-06-26] MEDS: SODIUM CHLORIDE 0.9% 1,000 ML IV STA ×2 (14:06→18:06)
[2024-06-26] MEDS: MECLIZINE 12.5 MG TAB PO STA (14:07)
[2024-06-26 14:21] LABS: HCT 43.8 % (37.2-46.3); HGB 15.4 g/dL (12.0-15.0); Immature Platelet Fraction 4.3 % (1.1-6.1); MCH 32.9 pg (27.0-32.0); MCHC 35.2 g/dL (32.0-37.0); MCV 93.6 fL (80.0-97.0); Mean Platelet Volume 11.1 fL (9.5-12.2); Platelet Count 127 10*3/uL (140-440); RBC 4.68 10*6/uL (4.10-5.20); WBC 14.37 10*3/uL (4.50-10.00)
--- NOTE | 2024-06-26 14:24 | XR ---
EXAMINATION TYPE: XR chest 2V DATE OF EXAM: 06/26/2024 2:20 PM COMPARISON: 05/24/2023 CLINICAL INDICATION: Female, 69 years old with history of dizzy: Shortness of breath TECHNIQUE: XR chest 2V views of the chest are obtained. FINDINGS: Scattered senescent parenchymal changes noted. Hyperinflation compatible with COPD. No evidence for infiltrate. No evidence for atelectasis. Heart size is stable. Mediastinal structures are stable and grossly unremarkable. No evidence for hilar prominence. Degenerative changes dorsal spine. IMPRESSION: 1. No evidence for acute pulmonary disease. [facility], , 06/26/2024 2:22 PM
[2024-06-26 14:51] LABS: ALT 21 U/L (4-34); AST 30 U/L (14-36); African American GFR (CKD) >90 (>60 ml/min/1.73 sqM); Albumin 5.1 g/dL (3.5-5.0); Alkaline Phosphatase 67 U/L (38-126); Anion Gap 11 mmol/L; Blood Urea Nitrogen 14 mg/dL (7-17); Carbon Dioxide 25 mmol/L (22-30); Chloride 104 mmol/L (98-107); Glucose 160 mg/dL (74-99); Non-African American GFR(CKD) 84 (>60 ml/min/1.73 sqM); Sodium 140 mmol/L (137-145); Total Bilirubin 1.2 mg/dL (0.2-1.3); Total Protein 7.8 g/dL (6.3-8.2)
[2024-06-26] MEDS: SODIUM CHLORIDE 0.9% 1,000 ML IV ONE (15:02)
[2024-06-26 15:21] LABS: Appearance,Urine Clear (Clear); Bilirubin,Urine Negative (Negative); Blood,Urine Negative (Negative); Color,Urine Colorless; Glucose,Urine (UA) Negative (Negative); Ketones,Urine Trace (Negative); Leukocyte Esterase,Urine Negative (Negative); Nitrite,Urine Negative (Negative); Protein,Urine Negative (Negative); Specific Gravity,Urine 1.005 (1.001-1.035); Urobilinogen,Urine <2.0 mg/dL (<2.0)
[2024-06-26 15:25] LABS: Lymphocytes # (M) 10.63 k/uL (1.0-4.8); Monocytes # (M) 0.43 k/uL (0-1.0); Neutrophils # (M) 3.45 k/uL (1.3-7.7); Neutrophils % (M) 24 %; Nucleated Red Blood Cells 0 /100 WBC (0-0); Total Cells Counted 200
[2024-06-26 15:31] LABS: Amphetamine Screen,Urine Not Detected (NotDetected); Barbiturate Screen,Urine Not Detected (NotDetected); Benzodiazepines Screen,Urine Not Detected (NotDetected); Cocaine Screen,Urine Not Detected (NotDetected); Methadone Screen, Urine Not Detected (NotDetected); Opiate Screen,Urine Not Detected (NotDetected); Oxycodone Screen, Urine Not Detected (NotDetected); Phencyclidine Screen,Urine Not Detected (NotDetected); Tricyclic Antidepressant,Urine Not Detected (NotDetected); Urn Cannabinoid Scrn Detected (NotDetected)
--- NOTE | 2024-06-26 15:35 | CT ---
EXAMINATION TYPE: CT brain wo con DATE OF EXAM: 06/26/2024 COMPARISON: CLINICAL INDICATION: Female, 69 years old with history of dizzy/vertigo; PHH, c/o dizziness TECHNIQUE: CT of the brain performed without contrast with sagittal and coronal reformats. CT DLP: 1190.[address] CTDI: mGy Automated exposure control for dose reduction was used. FINDINGS: There is no acute intracranial hemorrhage, mass effect, or midline shift identified. The ventricles and sulci are within normal limits in size. The globes are intact and the visualized sinuses are steff ar. IMPRESSION: No acute intracranial hemorrhage, mass effect, or midline shift is seen. [facility], , 06/26/2024 3:32 PM
[2024-06-26] MEDS ORDERED: ACETAMINOPHEN TAB 325 MG TAB PO PRN (16:35)
[2024-06-26] MEDS ORDERED: MECLIZINE 25 MG TAB PO PRN (16:35)
[2024-06-26] MEDS ORDERED: ONDANSETRON 4 MG/2 ML VIAL IVP PRN (16:35)
[2024-06-26] MEDS ORDERED: NALOXONE 0.4 MG/ML 1 ML VIAL IV PRN (16:35)
--- NOTE | 2024-06-26 16:40 | ED ---
General Adult HPI - General Chief complaint: Dizziness Stated complaint: Dizzy/Vomitting Time Seen by Provider: 06/26/24 13:35 Source: patient, RN notes reviewed, old records reviewed Mode of arrival: ambulatory Limitations: no limitations - History of Present Illness Initial comments: Patient is a 69-year-old female presents emergency department complaining of dizziness/lightheadedness. Past medical history remarkable for hypertension, diabetes. He has noticed for the last 2 to 3 days she has been experiencing intermittent dizziness and lightheadedness. Seems to be worse when standing and ambulating. Improves when she sits down. States it is not necessarily room spinning sensation. It is dependent sometimes on movement of her head from [id number]. Denies any recent cough, congestion. Denies any chest pain or shortness of breath. Denies abdominal pain, nausea, vomiting. No obvious head injuries. Is not on blood thinners. Presents for further evaluation at this time. Denies any weakness, numbness otherwise. Occasionally does feel nauseous with it. It did not improve which is why she presents today. - Related Data Home Medications Medication Instructions Recorded Confirmed Pioglitazone [Actos] 30 mg PO DAILY 05/20/23 06/26/24 amLODIPine BESYLATE/BENAZEPRIL 1 cap PO DAILY 05/20/23 06/26/24 [amLODIPine BESYLATE/BENAZEPRIL 10-20 mg] metFORMIN HCL [Glucophage] 500 mg PO BID-W/MEALS 05/20/23 06/26/24 Allergies Allergy/AdvReac Type Severity Reaction Status Date / Time No Known Allergies Allergy Verified 06/26/24 17:12 Review of Systems ROS Statement: Those systems with pertinent positive or pertinent negative responses have been documented in the HPI. Review of Systems: CONST: Denies fever EYES: Denies blurry vision ENT: Denies nasal congestion C/V: Denies Chest pain RESP: Denies shortness of breath GI: Denies abdominal pain : Denies dysuria SKIN: Denies rash. MSK: Denies joint pain. NEURO: Endorses lightheadedness/dizziness ROS Other: All systems not noted in ROS Statement are negative. Past Medical History Past Medical History: Diabetes Mellitus, Hypertension Additional Past Medical History / Comment(s): uterine tumor History of Any Multi-Drug Resistant Organisms: None Reported Past Surgical History: Section, Hysterectomy, Tubal Ligation Past Psychological History: No Psychological Hx Reported Smoking Status: Never smoker Past Alcohol Use History: None Reported Past Drug Use History: Marijuana General Exam - General Exam Comments Initial Comments: General: Appears in no acute distress. HEAD: Normal with no signs of head trauma. EYES: PERRLA, EOMI, conjunctiva normal, no discharge. Pulls are 3 mm and equal bilaterally. ENT: Hearing grossly intact, normal oropharynx. RESPIRATORY: Clear breath sounds bilaterally. No wheezes, rales, or rhonchi. C/V: Regular rate and rhythm. S1 and S2 auscultated, no edema, peripheral pulses 2+ and intact throughout ABD: Abd is soft, nontender, nondistended EXT: Normal range of motion, no obvious deformity SKIN: No rashes or lesions observed on exposed skin. NEURO: Alert and oriented x 4. Cranial nerves II-XII intact. No focal sensory or strength deficits. NIH is 0. GCS of 15. Absence of dysdiadochokinesia. Intact cerebellar function is evident by normal finger-nose testing [id number] testing Limitations: no limitations Course Vital Signs 06/26/24 06/26/24 06/26/24 13:03 15:14 19:49 Temperature 98.2 F 98.2 F Pulse Rate 84 73 Pulse Rate [ 74 Supine Mechanical Striper] Respiratory 18 18 Rate Blood Pressure 171/78 133/76 Blood Pressure 137/70 [Right Arm Sitting] Blood Pressure 150/74 [Right Arm Standing] Blood Pressure 141/71 [Right Arm Supine] O2 Sat by Pulse 96 97 Oximetry 06/26/24 20:42 Temperature 98.1 F Pulse Rate 75 Pulse Rate [ Supine Mechanical Striper] Respiratory 18 Rate Blood Pressure 133/67 Blood Pressure [Right Arm Sitting] Blood Pressure [Right Arm Standing] Blood Pressure [Right Arm Supine] O2 Sat by Pulse 99 Oximetry Medical Decision Making - Medical Decision Making Was pt. sent in by a medical professional or institution (, PA, HOSPITAL PERSONNEL DIRECTOR, urgent care, hospital, or assisted...) When possible be specific @ -No Did you speak to anyone other than the patient for history (EMS, parent, family, police, friend...)? What history was obtained from this source @ -No Did you review nursing and triage notes (agree or disagree)? Why? @ -I reviewed and agree with nursing and triage notes Were old charts reviewed (outside hosp., previous admission, EMS record, old EKG, old radiological studies, urgent care reports/EKG's, assisted records)? Report findings @ -No old charts were reviewed Differential Diagnosis (chest pain, altered mental status, abdominal pain women, abdominal pain men, vaginal bleeding, weakness, fever, dyspnea, syncope, headache, dizziness, GI bleed, back pain, seizure, CVA, palpatations, mental health, musculoskeletal)? @ -Differential Dizziness: Benign paroxysmal positional Vertigo, Meniere's disease, otitis media, acoustic neuroma, vertebrobasilar insufficiency, cerebellar stroke, encephalitis, hypovolemic, arrhythmia, coronary artery syndrome, anemia, this is not meant to be an all-inclusive list EKG interpreted by me (3pts min.). @ -As above X-rays interpreted by me (1pt min.). @ -X-ray reveals no obvious acute cardiopulmonary process per CT interpreted by me (1pt min.). @ -Brain CT reveals no evidence of acute intracranial process. U/S interpreted by me (1pt. min.). @ -None done What testing was considered but not performed or refused? (CT, X-rays, U/S, labs)? Why? @ -None What meds were considered but not given or refused? Why? @ -None Did you discuss the management of the patient with other professionals (professionals i.e. , PA, HOSPITAL PERSONNEL DIRECTOR, lab, RT, psych nurse, social group worker, bin operator, te acher, corporate responsibility officer, family independence case manager)? Give summary @ -Discussed with the admitting provider, Dr. Teran of [facility] who accepted the admission. Was smoking cessation discussed for >3mins.? @ -No Was critical care preformed (if so, how long)? @ -No Were there social determinants of health that impacted care today? How? (Homelessness, low income, unemployed, alcoholism, drug addiction, transportati on, low edu. Level, literacy, decrease access to med. care, [facility], rehab)? @ -No Was there de-escalation of care discussed even if they declined (Discuss DNR or withdrawal of care, Hospice)? DNR status @ -No What co-morbidities impacted this encounter? (DM, HTN, Smoking, COPD, CAD, Cancer, CVA, ARF, Chemo, Hep., AIDS, mental health diagnosis, sleep apnea, morbid obesity)? @ -None Was patient admitted / discharged? Hospital course, mention meds given and route, prescriptions, significant lab abnormalities, going to OR and other pertinent info. @ -Presents with persistent dizziness, lightheadedness for the last few days. Vital signs within acceptable limits. Patient will be administered IV fluids as well as meclizine. Will obtain CT brain, chest x-ray, screening EKG and labs. She was in agreement this plan. Vital signs are within acceptable limits. EKG shows no signs of acute ischemia. Patient's laboratory studies returned remarkable for mild leukocytosis of 14 which could be reactive. Remainder the patient's workup relatively unremarkable. CT brain on remarkable. Chest x-ray unremarkable. On reevaluation, patient is still symptomatic. Orthostatics are negative. She feels unsteady on her feet. Patient will be admitted for neurology evaluation. She was in agreement this plan. I discussed the case with the admitting provider, Dr. Teran who accepted the admission. Neurology consulted. Undiagnosed new problem with uncertain prognosis? @ -No Drug Therapy requiring intensive monitoring for toxicity (Heparin, Nitro, Insulin, Cardizem)? @ -No Were any procedures done? @ -No Diagnosis/symptom? @ -Dizziness/vertigo Acute, or Chronic, or Acute on Chronic? @ -Acute Uncomplicated (without systemic symptoms) or Complicated (systemic symptoms)? @ -Complicated Side effects of treatment? @ -No Exacerbation, Progression, or Severe Exacerbation? @ -No Poses a threat to life or bodily function? How? (Chest pain, USA, MT, pneumonia, PE, COPD, DKA, ARF, appy, cholecystitis, CVA, Diverticulitis, Homicidal, Suicidal, threat to staff... and all critical care pts) @ -Potentially, yes - Lab Data Result diagrams: 06/26/24 14:12 06/26/24 14:12 Lab Results 06/26/24 06/26/24 06/26/24 Range/Units 14:12 14:12 14:12 WBC 14.37 H (4.50-10.00) 10*3/uL RBC 4.68 (4.10-5.20) 10*6/uL Hgb 15.4 H (12.0-15.0) g/dL Hct 43.8 (37.2-46.3) % MCV 93.6 (80.0-97.0) fL MCH 32.9 H (27.0-32.0) pg MCHC 35.2 (32.0-37.0) g/dL Plt Count 127 L (140-440) 10*3/uL MPV 11.1 (9.5-12.2) fL Immature Gran % (Auto) 0.1 % Neutrophils % (Manual) 24 % Lymphocytes % (Manual) 74 % Monocytes % (Manual) 3 % Immature Gran # 0.01 (0.00-0.04) 10*3/uL Neutrophils # (Manual) 3.45 (1.3-7.7) k/uL Lymphocytes # (Manual) 10.63 H (1.0-4.8) k/uL Monocytes # (Manual) 0.43 (0-1.0) k/uL Nucleated RBCs 0 (0-0) /100 WBC Manual Slide Review Performed Immature Plt Fraction 4.3 (1.1-6.1) % Sodium 140 (137-145) mmol/L Potassium 4.0 (3.5-5.1) mmol/L Chloride 104 (98-107) mmol/L Carbon Dioxide 25 (22-30) mmol/L Anion Gap 11 mmol/L BUN 14 (7-17) mg/dL Creatinine 0.74 (0.52-1.04) mg/dL Est GFR (CKD-EPI)AfAm >90 (>60 ml/min/1.73 sqM) Est GFR (CKD-EPI)NonAf 84 (>60 ml/min/1.73 sqM) Glucose 160 H (74-99) mg/dL Plasma Lactic Acid Blanco 1.2 (0.7-2.0) mmol/L Calcium 10.0 (8.4-10.2) mg/dL Total Bilirubin 1.2 (0.2-1.3) mg/dL AST 30 (14-36) U/L ALT 21 (4-34) U/L Alkaline Phosphatase 67 (38-126) U/L Total Protein 7.8 (6.3-8.2) g/dL Albumin 5.1 H (3.5-5.0) g/dL Urine Color Urine Appearance (Clear) Urine pH (5.0-8.0) Ur Specific [place] (1.001-1.035) Urine Protein (Negative) Urine Glucose (UA) (Negative) Urine Ketones (Negative) Urine Blood (Negative) Urine Nitrite (Negative) Urine Bilirubin (Negative) Urine Urobilinogen (<2.0) mg/dL Ur Leukocyte Esterase (Negative) Urine Opiates Screen (NotDetected) Ur Oxycodone Screen (NotDetected) Urine Methadone Screen (NotDetected) Ur Barbiturates Screen (NotDetected) U Tricyclic Antidepress (NotDetected) Ur Phencyclidine Scrn (NotDetected) Ur Amphetamines Screen (NotDetected) U Methamphetamines Scrn (NotDetected) U Benzodiazepines Scrn (NotDetected) Urine Cocaine Screen (NotDetected) U Marijuana (THC) Screen (NotDetected) 06/26/24 Range/Units 15:02 WBC (4.50-10.00) 10*3/uL RBC (4.10-5.20) 10*6/uL Hgb (12.0-15.0) g/dL Hct (37.2-46.3) % MCV (80.0-97.0) fL MCH (27.0-32.0) pg MCHC (32.0-37.0) g/dL Plt Count (140-440) 10*3/uL MPV (9.5-12.2) fL Immature Gran % (Auto) % Neutrophils % (Manual) % Lymphocytes % (Manual) % Monocytes % (Manual) % Immature Gran # (0.00-0.04) 10*3/uL Neutrophils # (Manual) (1.3-7.7) k/uL Lymphocytes # (Manual) (1.0-4.8) k/uL Monocytes # (Manual) (0-1.0) k/uL Nucleated RBCs (0-0) /100 WBC Manual Slide Review Immature Plt Fraction (1.1-6.1) % Sodium (137-145) mmol/L Potassium (3.5-5.1) mmol/L Chloride (98-107) mmol/L Carbon Dioxide (22-30) mmol/L Anion Gap mmol/L BUN (7-17) mg/dL Creatinine (0.52-1.04) mg/dL Est GFR (CKD-EPI)AfAm (>60 ml/min/1.73 sqM) Est GFR (CKD-EPI)NonAf (>60 ml/min/1.73 sqM) Glucose (74-99) mg/dL Plasma Lactic Acid Blanco (0.7-2.0) mmol/L Calcium (8.4-10.2) mg/dL Total Bilirubin (0.2-1.3) mg/dL AST (14-36) U/L ALT (4-34) U/L Alkaline Phosphatase (38-126) U/L Total Protein (6.3-8.2) g/dL Albumin (3.5-5.0) g/dL Urine Color Colorless Urine Appearance Clear (Clear) Urine pH 6.0 (5.0-8.0) Ur Specific [place] 1.005 (1.001-1.035) Urine Protein Negative (Negative) Urine Glucose (UA) Negative (Negative) Urine Ketones Trace H (Negative) Urine Blood Negative (Negative) Urine Nitrite Negative (Negative) Urine Bilirubin Negative (Negative) Urine Urobilinogen <2.0 (<2.0) mg/dL Ur Leukocyte Esterase Negative (Negative) Urine Opiates Screen Not Detected (NotDetected) Ur Oxycodone Screen Not Detected (NotDetected) Urine Methadone Screen Not Detected (NotDetected) Ur Barbiturates Screen Not Detected (NotDetected) U Tricyclic Antidepress Not Detected (NotDetected) Ur Phencyclidine Scrn Not Detected (NotDetected) Ur Amphetamines Screen Not Detected (NotDetected) U Methamphetamines Scrn Not Detected (NotDetected) U Benzodiazepines Scrn Not Detected (NotDetected) Urine Cocaine Screen Not Detected (NotDetected) U Marijuana (THC) Screen Detected H (NotDetected) - EKG Data -: EKG Interpreted by Me EKG Comments: 12-lead Electrocardiogram Interpretation Note EKG was reviewed and interpreted by myself. 12-lead ECG performed at 1314 is interpreted by me as revealing normal sinus rhythm at a rate of 72 beats per minute. [place] is normal. LA interval is 125 ms, QRS duration is 81 ms, QTc is 392 ms.. There were no ST or T wave abnormalities to suggest myocardial ischemia or injury. R wave progression across the precordium was satisfactory. By my interpretation this EKG is non-diagnostic for acute ischemia. Disposition Clinical Impression: Dizzy, Vertigo Disposition: ADMITTED IP TO THIS HOSP Condition: Stable Time of Disposition: 16:40
[2024-06-27 06:21] LABS: Glucose,Whole Blood 134 mg/dL (70-110)
[2024-06-27 07:30] VITALS: TEMP 97.6
[2024-06-27 10:10] LABS: HGB 12.1 g/dL (12.0-15.0); MCH 31.8 pg (27.0-32.0); MCHC 32.7 g/dL (32.0-37.0); MCV 97.1 FL (80.0-97.0); Mean Platelet Volume 11.6 FL (9.5-12.2); NRBC Per 100 WBC 0 X 10*3/uL (0.00-0.01); Platelet Count 115 X 10*3/uL (140-440); RBC 3.81 X 10*6/uL (4.10-5.20); RDW 14.2 % (11.5-14.5); WBC 12.98 X 10*3/uL (4.50-10.00)
[2024-06-27 11:01] LABS: ALT 15 U/L (8-44); AST 19 U/L (13-35); Albumin 4.1 g/dL (3.8-4.9); Albumin/Globulin Ratio 2.73 Ratio (1.60-3.17); Alkaline Phosphatase 57 U/L (41-126); BUN/Creat Ratio 16.29 Ratio (12.00-20.00); Blood Urea Nitrogen 11.4 mg/dL (9.0-27.0); Calcium 8.6 mg/dL (8.7-10.3); Carbon Dioxide 23.6 mmol/L (21.6-31.8); Chloride 108 mmol/L (96-109); Globulin 1.5 g/dL (1.6-3.3); Glucose 119 mg/dL (70-110); Potassium 3.6 mmol/L (3.5-5.5); Sodium 141 mmol/L (135-145); Total Bilirubin 0.6 mg/dL (0.3-1.2); Total Protein 5.6 g/dL (6.2-8.2)
[2024-06-27] MEDS ORDERED: DEXTROSE 50% SYRINGE 50 ML IVP PRN ×2 (11:24)
[2024-06-27 11:25] LABS: Basophils # (M) 0 X 10*3/uL (0.00-0.10); Eosinophils # (M) 0.13 X 10*3/uL (0.04-0.35); Lymphocytes # (M) 11.42 X 10*3/uL (0.90-5.00); Monocytes # (M) 0.13 X 10*3/uL (0.20-1.00); Neutrophils % (M) 10 %; RBC Morphology Normal (Normal)
[2024-06-27 11:45] LABS: Glucose,Whole Blood 106 mg/dL (70-110)
[2024-06-27] MEDS: INSULIN LISPRO (HumaLOG) 100 UNIT/ML 10 mL VL SQ SCH (12:11)
[2024-06-27 13:42] VITALS: BP 107/66; PULSE 76; RESP 15
--- NOTE | 2024-06-27 13:43 | P.HPIM ---
History of Present Illness H&P Date: 06/27/24 History of present illness; patient is a 69-year-old lady with past medical history significant for hypertension who presented to the ER because of lightheadedness and dizziness. Patient stated for the last couple of days she has been noticing that she gets lightheaded and dizzy, patient denies any feeling of room spinning around her. Dizziness is brought about by her standing and by movement of her head, relieved by sitting down. Denies any l weakness of any extremity. Patient denies any slurred speech there is no complaint of numbness of any part of the body. Patient denies any nausea or vomiting. There is no complaint of shortness of breath. Patient denies any palpitation. There is no complaint of orthopnea or PND. Denies any nausea, vomiting abdominal pain. Because of the symptoms, patient came to the ED Initial lab work done in the ER showed WBC 14.37, hemoglobin 15.4, platelet count 127, sodium 140, potassium 4, BUN 14, creatinine 0.74, glucose 160, albumin 5.1 UA negative for infection Urine drug screen positive for marijuana EKG done in the ER showed heart rate of 72, no ST segment elevation or depression seen, no T-wave inversions seen. Chest x-ray done in the ER showed no evidence of acute pulmonary process CT head done showed no acute intracranial process Patient admitted to internal medicine service REVIEW OF SYSTEMS: CONSTITUTIONAL: No fever, no malaise, no fatigue. HEENT: No recent visual problems or hearing problems. Denied any sore throat. CARDIOVASCULAR: No chest pain, orthopnea, PND, no palpitations, no syncope. PULMONARY: No shortness of breath, no cough, no hemoptysis. GASTROINTESTINAL: No diarrhea, no nausea, no vomiting, no abdominal pain. NEUROLOGICAL: As mentioned above HEMATOLOGICAL: Denies any bleeding or petechiae. GENITOURINARY: Denies any burning micturition, frequency, or urgency. MUSCULOSKELETAL/RHEUMATOLOGICAL: Denies any joint pain, swelling, or any muscle pain. ENDOCRINE: Denies any polyuria or polydipsia. The rest of the 14-point review of systems is negative. PHYSICAL EXAMINATION: GENERAL: The patient is alert and oriented x3, not in any acute distress. Well developed, well nourished. HEENT: Pupils are round and equally reacting to light. EOMI. No scleral icterus. No conjunctival pallor. Normocephalic, atraumatic. No pharyngeal erythema. No thyromegaly. CARDIOVASCULAR: S1 and S2 present. No murmurs, rubs, or gallops. PULMONARY: Chest is clear to auscultation, no wheezing or crackles. ABDOMEN: Soft, nontender, nondistended, normoactive bowel sounds. No palpable organomegaly. MUSCULOSKELETAL: No joint swelling or deformity. EXTREMITIES: No cyanosis, clubbing, or pedal edema. NEUROLOGICAL: Gross neurological examination did not reveal any focal deficits. SKIN: No rashes. Assessment and plan Dizziness Benign positional vertigo Ten hypertension History of diabetes melitis Monitor vital signs Monitor CBC Monitor CMP Ordered orthostatics Ordered Antivert Ordered antiemetics Resume home meds Consult neurology Labs and medication were reviewed.. Continue same treatment. Continue with symptomatic treatment. Resume home medication. Monitor labs and vitals. DVT and GI prophylaxis. Further recommendations as per clinical course of the patient Dictation was produced using [employer] dictation software. please excuse any grammatical, word or spelling errors. Past Medical History Past Medical History: Diabetes Mellitus, Hypertension Additional Past Medical History / Comment(s): uterine tumor History of Any Multi-Drug Resistant Organisms: None Reported Past Surgical History: Section, Hysterectomy, Tubal Ligation Past Psychological History: No Psychological Hx Reported Smoking Status: Never smoker Past Alcohol Use History: None Reported Past Drug Use History: Marijuana Medications and Allergies Home Medications Medication Instructions Recorded Confirmed Type Pioglitazone [Actos] 30 mg PO DAILY 05/20/23 06/26/24 History amLODIPine BESYLATE/BENAZEPRIL 1 cap PO DAILY 05/20/23 06/26/24 History [amLODIPine BESYLATE/BENAZEPRIL 10-20 mg] metFORMIN HCL [Glucophage] 500 mg PO BID-W/MEALS 05/20/23 06/26/24 History Allergies Allergy/AdvReac Type Severity Reaction Status Date / Time No Known Allergies Allergy Verified 06/26/24 17:12 Physical Exam Vitals: Vital Signs Temp Pulse Pulse Resp BP BP BP 06/27/24 07:00 97.6 F 66 16 132/73 06/27/24 00:45 97.4 F L 67 14 06/26/24 22:25 98.2 F 83 17 154/87 06/26/24 20:42 98.1 F 75 18 133/67 06/26/24 19:49 98.2 F 73 18 133/76 06/26/24 15:14 74 137/70 150/74 06/26/24 13:03 98.2 F 84 18 171/78 BP Pulse Ox 06/27/24 07:00 96 06/27/24 00:45 127/68 97 06/26/24 22:25 96 06/26/24 20:42 99 06/26/24 19:49 97 06/26/24 15:14 141/71 06/26/24 13:03 96 Intake and Output 06/26/24 06/27/24 06/27/24 22:59 06:59 14:59 Intake Total 250 1620 Balance 250 1620 Intake: Oral 250 1620 Other: Voiding Method Toilet # Voids 1 3 Weight 81.647 kg Results CBC & Chem 7: 06/27/24 05:48 06/27/24 05:48 Labs: Abnormal Lab Results - Last 24 Hours (Table) 06/26/24 06/26/24 06/26/24 Range/Units 14:12 14:12 15:02 WBC 14.37 H (4.50-10.00) 10*3/uL RBC (4.10-5.20) X 10*6/uL Hgb 15.4 H (12.0-15.0) g/dL Hct (37.2-46.3) % MCV (80.0-97.0) FL MCH 32.9 H (27.0-32.0) pg Plt Count 127 L (140-440) 10*3/uL Lymphocytes # (Manual) 10.63 H (1.0-4.8) k/uL Glucose 160 H (74-99) mg/dL POC Glucose (mg/dL) (70-110) mg/dL Calcium (8.7-10.3) mg/dL Total Protein (6.2-8.2) g/dL Albumin 5.1 H (3.5-5.0) g/dL Globulin (1.6-3.3) g/dL Urine Ketones Trace H (Negative) U Marijuana (THC) Screen Detected H (NotDetected) 06/27/24 06/27/24 06/27/24 Range/Units 05:48 05:48 06:20 WBC 12.98 H (4.50-10.00) 10*3/uL RBC 3.81 L (4.10-5.20) X 10*6/uL Hgb (12.0-15.0) g/dL Hct 37.0 L (37.2-46.3) % MCV 97.1 H (80.0-97.0) FL MCH (27.0-32.0) pg Plt Count 115 L (140-440) 10*3/uL Lymphocytes # (Manual) (1.0-4.8) k/uL Glucose 119 H (74-99) mg/dL POC Glucose (mg/dL) 134 H (70-110) mg/dL Calcium 8.6 L (8.7-10.3) mg/dL Total Protein 5.6 L (6.2-8.2) g/dL Albumin (3.5-5.0) g/dL Globulin 1.5 L (1.6-3.3) g/dL Urine Ketones (Negative) U Marijuana (THC) Screen (NotDetected) Thrombosis Risk Factor Assmnt - Choose All That Apply Each Risk Factor Represents 2 Points: Age 61-74 years Thrombosis Risk Factor Assessment Total Risk Factor Score: 2 Thrombosis Risk Factor Assessment Level: Low Risk
[2024-06-27] MEDS ORDERED: ASPIRIN 81 MG PO SCH (14:30)
[2024-06-28] MEDS ORDERED: lisinopriL 20 MG TAB PO SCH (09:00)
[2024-06-28] MEDS ORDERED: amLODIPine 10 MG TAB PO SCH (09:00)
[2024-06-28] MEDS ORDERED: PIOGLITAZONE 30 MG TAB PO SCH (09:00)
--- NOTE | 2024-06-28 13:35 | P.CNNES ---
History of Present Illness Consult date: 06/27/24 Requesting physician: Preston Montoya Reason for Consult: intractible dizziness/vertigo symptoms. 3 days History of Present Illness: Patient is a 69-year-old right-handed female with history of hypertension, sherita hayley came to the hospital yesterday at 12:56 PM, who states that she woke up Friday morning on 06/25/2024 at 7 AM. When she lifted her head up, she felt like a wave going from right to left. It lasted for short while, but she was slightly dizzy, had to watch what she was doing. She laid down. It was not of vertigo, but did not trust her balance. Rest of the day she was okay. The next day, on Friday, which is yesterday, she woke up at 7 AM and was feeling better. However about 3 hours later, all of a sudden she started becoming dizzy again. It was not as bad as the first day. She threw up a little bit. She got concerned therefore came to the ER. There was no focal symptoms like slurred speech facial droop, double vision, numbness tingling focal weakness. Vital signs on arrival blood pressure 171/78, pulse rate 84 temperature 98.2. Orthostatics were checked, and were essentially negative with supine blood pressure 141/71, sitting blood pressure 137/70 and standing 150/74. Blood test shows WBC 14.37, normal hemoglobin, platelets 127. CMP is normal. UA negative, urine drug screen positive for marijuana. Patient states her last hemoglobin A1c was 5.5 checked within couple months. Chest x-ray showed no evidence for acute pulmonary disease. CT head revealed no acute intracranial process. I personally reviewed CT head, agree with the findings. Paranasal sinuses, and external auditory canals are clear. EKG showed sinus rhythm with occasional ventricular premature complexes. Patient has history of hypertension and diabetes. Patient states that after a second Covid shot couple years ago, she has developed tinnitus without any hearing loss. This tinnitus can get loud at times. Denies any recent upper respiratory infection. Patient states she used to smoke marijuana. States she stopped smoking it, but last year she started smoking marijuana again. For last 2 months she has been smoking 10 joints per day. 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 Home medications include amlodipine/benazepril Actos and metformin. Patient does not take any antiplatelet medication at home. Patient states last year she developed double pneumonia and influenza A. She was very weak and had to hang on to walk. At present she feels fine, the dizziness has resolved. Review of Systems All pertinent positive and negative review of systems mentioned in the HPI. Otherwise unremarkable. Past Medical History Past Medical History: Diabetes Mellitus, Hypertension Additional Past Medical History / Comment(s): uterine tumor History of Any Multi-Drug Resistant Organisms: None Reported Past Surgical History: Section, Hysterectomy, Tubal Ligation Past Psychological History: No Psychological Hx Reported Smoking Status: Never smoker Past Alcohol Use History: None Reported Past Drug Use History: Marijuana Medications and Allergies Home Medications Medication Instructions Recorded Confirmed Type Pioglitazone [Actos] 30 mg PO DAILY 05/20/23 06/26/24 History amLODIPine BESYLATE/BENAZEPRIL 1 cap PO DAILY 05/20/23 06/26/24 History [amLODIPine BESYLATE/BENAZEPRIL 10-20 mg] metFORMIN HCL [Glucophage] 500 mg PO BID-W/MEALS 05/20/23 06/26/24 History Meclizine [Antivert] 25 mg PO TID PRN #21 tab 06/27/24 Rx Allergies Allergy/AdvReac Type Severity Reaction Status Date / Time No Known Allergies Allergy Verified 06/26/24 17:12 Physical Examination - Vital Signs Vital Signs: Vital Signs Temp Pulse Pulse Resp BP BP BP 06/27/24 13:41 97.6 F 76 15 107/66 06/27/24 07:00 97.6 F 66 16 132/73 06/27/24 00:45 97.4 F L 67 14 06/26/24 22:25 98.2 F 83 17 154/87 06/26/24 20:42 98.1 F 75 18 133/67 06/26/24 19:49 98.2 F 73 18 133/76 06/26/24 15:14 74 137/70 150/74 BP Pulse Ox 06/27/24 13:41 97 06/27/24 07:00 96 06/27/24 00:45 127/68 97 06/26/24 22:25 96 06/26/24 20:42 99 06/26/24 19:49 97 06/26/24 15:14 141/71 Intake and Output 06/26/24 06/27/24 06/27/24 22:59 06:59 14:59 Intake Total 250 1620 Balance 250 1620 Intake: Oral 250 1620 Other: Voiding Method Toilet # Voids 1 3 Weight 81.647 kg Patient is an elderly female, very pleasant, in no acute distress. Patient is alert awake oriented to time place and person. Speech and language functions are normal. Patient can name and repeat very well. No aphasia or dysarthria. Attention, concentration and fund of knowledge is adequate. On cranial nerve examination, pupils are equal, round and reacting to light, visual bowens are full on confrontation, with no neglect on double simultaneous stimulation. Extraocular muscles are intact with no nystagmus. Face is symmetric, tongue protrudes to the midline. Palatal elevation and sensation normal, hearing is normal for routine conversation and shoulder shrug normal, facial sensation normal. On muscle strength testing, there is no pronator drift and the strength is normal in arms and legs distally and proximally. Deep tendon reflexes are symmetric 1+ in the biceps, 1+ brachioradialis, 2 at the knees, 1 at ankles and plantars downgoing bilaterally. Sensory to touch is equal with no neglect on double simultaneous stimulation. Cerebellar function showed no ataxia for [id number] testing. No dysdiadochokinesia. No ataxia for [id number] testing on either side. Tone and bulk of muscles normal. Gait deferred.. On general examination, there is no carotid bruit or murmur, S1-S2 audible. Chest is clear on consultation. Abdomen is soft nontender. No organomegaly, bowel sounds present. Peripheral pulses are present. No peripheral edema. Results - Laboratory Findings CBC and BMP: 06/27/24 05:48 06/27/24 05:48 Abnormal Lab Findings: Abnormal Labs 06/26/24 06/26/24 06/26/24 14:12 14:12 15:02 WBC 14.37 H RBC Hgb 15.4 H Hct MCV MCH 32.9 H Plt Count 127 L Neutrophils # (Manual) Lymphocytes # (Manual) 10.63 H Monocytes # (Manual) Glucose 160 H POC Glucose (mg/dL) Calcium Total Protein Albumin 5.1 H Globulin Urine Ketones Trace H U Marijuana (THC) Screen Detected H 06/27/24 06/27/24 06/27/24 05:48 05:48 06:20 WBC 12.98 H RBC 3.81 L Hgb Hct 37.0 L MCV 97.1 H MCH Plt Count 115 L Neutrophils # (Manual) 1.30 L Lymphocytes # (Manual) 11.42 H Monocytes # (Manual) 0.13 L Glucose 119 H POC Glucose (mg/dL) 134 H Calcium 8.6 L Total Protein 5.6 L Albumin Globulin 1.5 L Urine Ketones U Marijuana (THC) Screen Assessment and Plan Assessment: * Transient vertigo, probable peripheral vascular dysfunction. Doubt TIA * Chronic tinnitus for last 2 years * Diabetes * Hypertension * Marijuana use, chronic heavy use Plan: * Patient's symptoms are suggestive of possible peripheral vestibular dysfunction. This could also be related to smoking a lot of pot per day. * Patient does have vascular risk factors. * Her diabetes is well controlled, last most recent A1c 5.5, as per patient, although in our records it was 6.7 on 05/21/2023. * Blood pressure is also well controlled. * She was recommended to have fasting lipid panel checked through her primary physician, and if abnormal, to be started on statins. * Patient recommended to start taking aspirin 81 mg daily because of her vascular risk factors. * I did not hear any bruit or murmur. * Patient states for the last couple months she has been smoking a lot of marijuana, 10 joints a day. This may be contributing to her dizziness. She also has been taking ibuprofen 800 mg daily for last 20 years. She has stopped taking ibuprofen recently. Patient is planning to stop marijuana as well. * Informed her that if dizziness recurs, to have her primary physician Dr. Byrne check carotid ultrasound and 2-D echo outpatient. * Neurologically clear for discharge. Thank you for the consult.
== END 2024-06-27 14:53 | disposition home or self-care (01) ==
LOC: EC 12:56 → 6NMEDSUR 16:36 → 4SSUR 19:45
PROVIDERS: ADMIT Internal Medicine; ATTEND Internal Medicine
DX: R42 Dizziness and giddiness (principal); H93.19 Tinnitus, unspecified ear; E11.9 Type 2 diabetes mellitus without complications; I10 Essential (primary) hypertension; Z79.84 Long term (current) use of oral hypoglycemic drugs; Z79.899 Other long term (current) drug therapy
CPT/HCPCS: 96360; 96361; 99285; 36415; 93005; 80053 ×2; 83605; 85025 ×2; 81003; 80306; 71046; 70450; G0378 ×2

== ENCOUNTER 2024-08-23 14:02 | Inpatient (IN) | payer MEDICARE, OTHER ==
--- NOTE | 2024-08-23 14:37 | ED ---
URI HPI - General Chief Complaint: Shortness of Breath Stated Complaint: abn labs Time Seen by Provider: 08/23/24 14:12 Source: patient, RN notes reviewed Mode of arrival: wheelchair Limitations: no limitations - History of Present Illness Initial Comments: This is a 69-year-old female who presents to the emergency department for URI symptoms. Patient reports coughing, congestion, and nasal drainage for the last couple of days. Cough is relatively nonproductive. States that she checked her pulse ox at home and it was in the 70s, prompting her to come in for evaluation. While her oxygen saturation is low, she denies any significant shortness of breath. She does note that her chest feels very congested and she struggling to cough up any mucus. Denies any history of COPD or asthma. She does state that she feels very achy overall. Denies any chest pain, fevers, chills, or sick contacts. - Related Data Home Medications Medication Instructions Recorded Confirmed Pioglitazone [Actos] 30 mg PO DAILY 05/20/23 08/23/24 amLODIPine BESYLATE/BENAZEPRIL 1 cap PO DAILY 05/20/23 08/23/24 [amLODIPine BESYLATE/BENAZEPRIL 10-20 mg] metFORMIN HCL [Glucophage] 500 mg PO BID 05/20/23 08/23/24 Allergies Allergy/AdvReac Type Severity Reaction Status Date / Time No Known Allergies Allergy Verified 08/23/24 16:37 Review of Systems ROS Statement: Those systems with pertinent positive or pertinent negative responses have been documented in the HPI. ROS Other: All systems not noted in ROS Statement are negative. Past Medical History Past Medical History: Diabetes Mellitus, Hypertension Additional Past Medical History / Comment(s): uterine tumor History of Any Multi-Drug Resistant Organisms: None Reported Past Surgical History: Section, Hysterectomy, Tubal Ligation Past Psychological History: No Psychological Hx Reported Smoking Status: Never smoker Past Alcohol Use History: None Reported Past Drug Use History: Marijuana General Exam Limitations: no limitations General appearance: alert, in no apparent distress Head exam: Present: atraumatic, normocephalic, normal inspection Respiratory exam: Present: rales, rhonchi, decreased breath sounds, prolonged expiratory Cardiovascular Exam: Present: regular rate, normal rhythm Neurological exam: Present: alert, oriented X3, CN II-XII intact Psychiatric exam: Present: normal affect, normal mood Skin exam: Present: warm, dry, intact, normal color. Absent: rash Course Vital Signs 08/23/24 08/23/24 08/23/24 14:05 16:52 16:55 Temperature 98.2 F Pulse Rate 84 73 Respiratory 16 Rate Blood Pressure 110/65 O2 Sat by Pulse 87 L 93 L Oximetry 08/23/24 08/23/24 17:01 17:13 Temperature Pulse Rate 69 78 Respiratory 20 Rate Blood Pressure 133/67 O2 Sat by Pulse 94 L Oximetry Medical Decision Making - Medical Decision Making This is a 69 year old female who presents to the emergency department for coughing and congestion. Was pt. sent in by a medical professional or institution? @ -No Did you speak to anyone other than the patient for history? @ -No Did you review nursing and triage notes? @ -Yes, and I agree, it is accurate with regards to the patient's symptoms. Were old charts reviewed? @ -No Differential Diagnosis? @ -Differential Cough: Influenza, Covid, RSV, croup, allergic rhinitis, GERD, pneumonia, bronchitis, COPD, viral pharyngitis, streptococcal pharyngitis, this is not meant to be an all-inclusive list. EKG interpreted by me (3pts min.)? @ -EKG interpreted by me demonstrating the following: Sinus rhythm. Ventricular rate 73 bpm, ND interval 115 ms, QRS duration 86 ms, QTc 395 ms. X-rays interpreted by me (1pt min.)? @ -Chest x-ray obtained. My interpretation identifies a left lower lobe pneumonia. CT interpreted by me (1pt min.)? @ -Not obtained U/S interpreted by me (1pt. min.)? @ -Not obtained What testing was considered but not performed? (CT, X-rays, U/S, labs)? Why? @ -None What meds were considered but not given? Why? @ -None Did you discuss the management of the patient with other professionals? @ -Yes, Dr. Byrne, who accepts the patient for admission. Dr. Carpenter, pathology, who advised that she has mature lymphocytosis and an increase in smudge cells and an early lymphoma cannot be excluded. Flow cytometry is advised. Did you reconcile home meds? @ -Yes Was smoking cessation discussed for >3mins.? @ -No Was critical care preformed (if so, how long)? @ -No Were there social determinants of health that impacted care today? How? (Homelessness, low income, unemployed, alcoholism, drug addiction, transportation, low edu. Level, literacy, decrease access to med. care, residential, rehab)? @ -No Was there de-escalation of care discussed even if they declined? (Discuss DNR or withdrawal of care, Hospice)? @ -No What co-morbidities impacted this encounter? (DM, HTN, Smoking, COPD, CAD, Cancer, CVA, Hep., AIDS, mental health diagnosis, sleep apnea, morbid obesity)? @ -DM, HTN Was patient admitted / discharged? @ -Admitted. Lab work demonstrates leukocytosis with a white blood cell count of 15.85. COVID, influenza, and RSV testing negative. Chest x-ray demonstrates a left lower lobe pneumonia. CRP elevated at 5.2. She was hypoxic on room air and 87% and started on a nasal cannula, requiring 3 L. She did not initially meet all sepsis criteria, however we did proceed with sepsis management including 2 L of LR per fluid requirement for total ideal body weight. She was also started on the pneumonia protocol with ceftriaxone and azithromycin. After the patient was admitted, I received a call from the pathologist, Dr. Carpenter. He advised that she had elevated lymphocytes which also demonstrated mature lymphocytosis and an increase in smudge cells. He advised that this can be seen with a respiratory illness like the patient has. However, he also cannot exclude an early lymphoma. He advised flow cytometry to better evaluate this abnormality. Flow cytometry was ordered and given that it is a send out test, it was pending at the time of admission. Case discussed with ED attending Dr. Rooney. Undiagnosed new problem with uncertain prognosis? @ -None Drug Therapy requiring intensive monitoring for toxicity (Heparin, Nitro, Insulin, Cardizem)? @ -None Were any procedures done? @ -None Diagnosis/symptom? @ -Pneumonia, acute hypoxic respiratory failure Acute, or Chronic, or Acute on Chronic? @ -Acute Uncomplicated (without systemic symptoms) or Complicated (systemic symptoms)? @ -Complicated Side effects of treatment? @ -None Exacerbation, Progression, or Severe Exacerbation] @ -Not applicable Poses a threat to life or bodily function? @ -Yes, further respiratory compromise can be life-threatening - Lab Data Result diagrams: 08/23/24 14:45 08/23/24 14:45 Lab Results 08/23/24 08/23/24 08/23/24 Range/Units 14:45 14:45 14:45 WBC 15.85 H (4.50-10.00) 10*3/uL RBC 4.05 L (4.10-5.20) 10*6/uL Hgb 13.3 (12.0-15.0) g/dL Hct 37.7 (37.2-46.3) % MCV 93.1 (80.0-97.0) fL MCH 32.8 H (27.0-32.0) pg MCHC 35.3 (32.0-37.0) g/dL Plt Count 112 L (140-440) 10*3/uL MPV 11.2 (9.5-12.2) fL Immature Gran % (Auto) 0.3 % Neutrophils % (Manual) 23 % Lymphocytes % (Manual) 77 % Monocytes % (Manual) 0 % Basophils % (Manual) 0 % Immature Gran # 0.04 (0.00-0.04) 10*3/uL Neutrophils # (Manual) 3.65 (1.3-7.7) k/uL Lymphocytes # (Manual) 12.20 H (1.0-4.8) k/uL Monocytes # (Manual) 0.00 (0-1.0) k/uL Basophils # (Manual) 0.00 (0-0.2) k/uL Nucleated RBCs 0 (0-0) /100 WBC Differential Comment Manual Slide Review Performed Pathologist Review See comment A PT 10.9 (10.0-12.5) sec INR 1.0 (<1.2) APTT 23.5 (22.0-30.0) sec Sodium 138 (137-145) mmol/L Potassium 4.2 (3.5-5.1) mmol/L Chloride 101 (98-107) mmol/L Carbon Dioxide 23 (22-30) mmol/L Anion Gap 14 mmol/L BUN 17 (7-17) mg/dL Creatinine 0.77 (0.52-1.04) mg/dL Est GFR (CKD-EPI)AfAm >90 (>60 ml/min/1.73 sqM) Est GFR (CKD-EPI)NonAf 79 (>60 ml/min/1.73 sqM) Glucose 145 H (74-99) mg/dL Plasma Lactic Acid Blanco (0.7-2.0) mmol/L Calcium 9.6 (8.4-10.2) mg/dL Magnesium 1.7 (1.6-2.3) mg/dL Total Bilirubin 1.0 (0.2-1.3) mg/dL AST 23 (14-36) U/L ALT 13 (4-34) U/L Alkaline Phosphatase 64 (38-126) U/L Troponin I (0.000-0.034) ng/mL C-Reactive Protein 5.2 H (<1.0) mg/dL NT-Pro-B Natriuret Pep 562 pg/mL Total Protein 6.8 (6.3-8.2) g/dL Albumin 4.4 (3.5-5.0) g/dL Influenza Type A (PCR) (Not Detectd) Influenza Type B (PCR) (Not Detectd) RSV (PCR) (Not Detectd) SARS-CoV-2 (PCR) (Not Detectd) 08/23/24 08/23/24 08/23/24 Range/Units 14:45 14:45 14:45 WBC (4.50-10.00) 10*3/uL RBC (4.10-5.20) 10*6/uL Hgb (12.0-15.0) g/dL Hct (37.2-46.3) % MCV (80.0-97.0) fL MCH (27.0-32.0) pg MCHC (32.0-37.0) g/dL Plt Count (140-440) 10*3/uL MPV (9.5-12.2) fL Immature Gran % (Auto) % Neutrophils % (Manual) % Lymphocytes % (Manual) % Monocytes % (Manual) % Basophils % (Manual) % Immature Gran # (0.00-0.04) 10*3/uL Neutrophils # (Manual) (1.3-7.7) k/uL Lymphocytes # (Manual) (1.0-4.8) k/uL Monocytes # (Manual) (0-1.0) k/uL Basophils # (Manual) (0-0.2) k/uL Nucleated RBCs (0-0) /100 WBC Differential Comment Manual Slide Review Pathologist Review PT (10.0-12.5) sec INR (<1.2) APTT (22.0-30.0) sec Sodium (137-145) mmol/L Potassium (3.5-5.1) mmol/L Chloride (98-107) mmol/L Carbon Dioxide (22-30) mmol/L Anion Gap mmol/L BUN (7-17) mg/dL Creatinine (0.52-1.04) mg/dL Est GFR (CKD-EPI)AfAm (>60 ml/min/1.73 sqM) Est GFR (CKD-EPI)NonAf (>60 ml/min/1.73 sqM) Glucose (74-99) mg/dL Plasma Lactic Acid Blanco 1.2 (0.7-2.0) mmol/L Calcium (8.4-10.2) mg/dL Magnesium (1.6-2.3) mg/dL Total Bilirubin (0.2-1.3) mg/dL AST (14-36) U/L ALT (4-34) U/L Alkaline Phosphatase (38-126) U/L Troponin I <0.012 (0.000-0.034) ng/mL C-Reactive Protein (<1.0) mg/dL NT-Pro-B Natriuret Pep pg/mL Total Protein (6.3-8.2) g/dL Albumin (3.5-5.0) g/dL Influenza Type A (PCR) Not Detected (Not Detectd) Influenza Type B (PCR) Not Detected (Not Detectd) RSV (PCR) Not Detected (Not Detectd) SARS-CoV-2 (PCR) Not Detected (Not Detectd) - Radiology Data Radiology results: report reviewed, image reviewed Disposition Clinical Impression: Pneumonia, Acute hypoxic respiratory failure Disposition: ADMITTED IP TO THIS HOSP
[2024-08-23] MEDS ORDERED: PNEUMONIA PROTOCOL UTILIZED 1 EACH MISC PO PRN (15:15)
--- NOTE | 2024-08-23 15:27 | XR ---
EXAMINATION TYPE: XR chest 2V DATE OF EXAM: 08/23/2024 3:16 PM COMPARISON: Chest radiographs from 06/26/2024. CLINICAL INDICATION: Female, 69 years old with history of difficulty breathing; [facility] TECHNIQUE: XR chest 2V Frontal and lateral views of the chest. FINDINGS: Lungs/Pleura: Left lower lobe airspace opacities project over the spine. There is no evidence of pleu ral effusion, focal consolidation, or pneumothorax. Pulmonary vascularity: Unremarkable. Heart/mediastinum: Cardiomediastinal silhouette is unremarkable. Musculoskeletal: No acute osseous pathology. Other findings: None Lines/Tubes: IMPRESSION: No acute cardiopulmonary disease/process. Left lower lobe airspace disease correlate for pneumonia. [facility], , 08/23/2024 3:25 PM
[2024-08-23 15:29] LABS: INR 1.0 (<1.2); Partial Thromboplastin Time 23.5 sec (22.0-30.0); Prothrombin Time 10.9 sec (10.0-12.5)
[2024-08-23] MEDS: LACTATED RINGERS 1,000 ML IV SCH ×2 (15:31→23:13)
[2024-08-23] MEDS: AZITHROMYCIN 500 MG in SODIUM CHLORIDE 0.9% 250 ML IVPB STA (15:32)
[2024-08-23 15:38] LABS: ALT 13 U/L (4-34); AST 23 U/L (14-36); African American GFR (CKD) >90 (>60 ml/min/1.73 sqM); Albumin 4.4 g/dL (3.5-5.0); Alkaline Phosphatase 64 U/L (38-126); Anion Gap 14 mmol/L; Blood Urea Nitrogen 17 mg/dL (7-17); Calcium 9.6 mg/dL (8.4-10.2); Carbon Dioxide 23 mmol/L (22-30); Chloride 101 mmol/L (98-107); Glucose 145 mg/dL (74-99); HCT 37.7 % (37.2-46.3); HGB 13.3 g/dL (12.0-15.0); MCH 32.8 pg (27.0-32.0); MCHC 35.3 g/dL (32.0-37.0); MCV 93.1 fL (80.0-97.0); Magnesium 1.7 mg/dL (1.6-2.3); Non-African American GFR(CKD) 79 (>60 ml/min/1.73 sqM); Potassium 4.2 mmol/L (3.5-5.1); RBC 4.05 10*6/uL (4.10-5.20); RDW 14.2 % (11.5-14.5); Sodium 138 mmol/L (137-145); Total Protein 6.8 g/dL (6.3-8.2); WBC 15.85 10*3/uL (4.50-10.00)
[2024-08-23 15:47] LABS: NT-Pro-B-Type Natriuretic Pept 562 pg/mL
[2024-08-23 15:49] LABS: RSV Not Detected (Not Detectd)
[2024-08-23] MEDS ORDERED: NALOXONE 0.4 MG/ML 1 ML VIAL IV PRN (16:34)
[2024-08-23] MEDS ORDERED: ACETAMINOPHEN TAB 325 MG TAB PO PRN (16:34)
[2024-08-23] MEDS ORDERED: MORPHINE SULFATE 4 MG/ML SYRINGE IV PRN (16:34)
[2024-08-23] MEDS ORDERED: ONDANSETRON 4 MG/2 ML VIAL IVP PRN (16:34)
[2024-08-23] MEDS ORDERED: IPRATROPIUM-ALBUTEROL 3 ML NEB INHALATION PRN (16:35)
[2024-08-23 16:46] LABS: Basophils # (M) 0.00 k/uL (0-0.2); Lymphocytes # (M) 12.20 k/uL (1.0-4.8); Monocytes # (M) 0.00 k/uL (0-1.0); Neutrophils # (M) 3.65 k/uL (1.3-7.7); Neutrophils % (M) 23 %; Total Cells Counted 300
[2024-08-23] MEDS: IPRATROPIUM-ALBUTEROL 3 ML NEB INHALATION STA (16:51)
[2024-08-23 17:27] LABS: Platelet Count 112 10*3/uL (140-440)
[2024-08-23] MEDS: HYDROcodone/APAP 5-325MG 1 EACH TAB PO PRN (19:35)
[2024-08-23] MEDS: IPRATROPIUM-ALBUTEROL 3 ML NEB INHALATION SCH (20:16)
[2024-08-23] MEDS: metFORMIN 500 MG TAB PO SCH (21:49)
--- NOTE | 2024-08-24 03:53 | P.CNPUL ---
History of Present Illness Consult date: 08/24/24 Requesting physician: Yu Huertas Reason for consult: pneumonia Chief complaint: URI-like symptoms History of present illness: Patient is a 69-year-old female with past medical history significant for hypertension, diabetes mellitus. She is a lifelong tobacco smoker denies history of COPD or asthma. 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 Also, smokes marijuana daily. Presented the emergency department yesterday afternoon complaining of sinus pressure/pain and sore throat. Also, checked her oxygen level with her home pulse oximeter which was reportedly reading 70%. She was placed on supplemental oxygen on arrival. Workup in the emergency department including a chest x-ray showing a left lower lobe airspace opacity concerning for pneumonia. CBC remarkable for leukocytosis with a WBC count of 15.9. CMP unremarkable, electrolytes WDL, creatinine 0.77, glucose 145. Lactic 1.2. Troponin less than 0.012. NT-proBNP 562. Procalci tonin level less than 0.2. Viral 4 Plex negative for influenza A/B, RSV, COVID. Patient currently being evaluated the emergency department. She is resting comfortably on 3 L/min nasal cannula. Starting last Friday, developed frontal sinus pressure/pain, sore throat, and "rumbling in her chest". Denies any significant shortness of breath. Denies any cough. Denies any sputum production. Denies any fevers or chills. Denies any recent sick contacts. Denies any chest pain, hemoptysis, or palpitations, unilateral lower extremity edema. She was previously placed on empiric antibiotics in the ED in the form azithromycin and Rocephin. Afebrile. Vital signs stable. Review of Systems Constitutional: Denies chills, Denies fatigue, Denies fever, Denies night sweats, Denies poor appetite, Denies weight loss Ears, nose, mouth and throat: Reports post-nasal drip, Reports sinus pain, Reports sinus pressure, Reports sore throat, Denies dysphagia, Denies headache, Denies nasal congestion, Denies nasal discharge, Denies neck fullness/pressure, Denies voice changes Cardiovascular: Denies chest pain, Denies leg edema, Denies lightheadedness, Denies orthopnea, Denies palpitations, Denies paroxysmal nocturnal dyspnea, Denies syncope Respiratory: Reports as per HPI Gastrointestinal: Denies abdominal pain, Denies diarrhea, Denies nausea, Denies vomiting Genitourinary: Denies dysuria, Denies flank pain, Denies hematuria Musculoskeletal: Denies limitation of motion Integumentary: Denies rash Neurological: Denies seizures, Denies syncope Psychiatric: Denies anxiety, Denies depression Hematologic/Lymphatic: Denies easy bruising, Denies lymphadenopathy Past Medical History Past Medical History: Diabetes Mellitus, Hypertension Additional Past Medical History / Comment(s): uterine tumor History of Any Multi-Drug Resistant Organisms: None Reported Past Surgical History: Section, Hysterectomy, Tubal Ligation Past Psychological History: No Psychological Hx Reported Smoking Status: Never smoker Past Alcohol Use History: None Reported Past Drug Use History: Marijuana Medications and Allergies Home Medications Medication Instructions Recorded Confirmed Type Pioglitazone [Actos] 30 mg PO DAILY 05/20/23 08/23/24 History amLODIPine BESYLATE/BENAZEPRIL 1 cap PO DAILY 05/20/23 08/23/24 History [amLODIPine BESYLATE/BENAZEPRIL 10-20 mg] metFORMIN HCL [Glucophage] 500 mg PO BID 05/20/23 08/23/24 History Allergies Allergy/AdvReac Type Severity Reaction Status Date / Time No Known Allergies Allergy Verified 08/23/24 16:37 Physical Exam Vitals: Vital Signs Temp Pulse Resp BP Pulse Ox 08/24/24 00:19 70 18 123/63 92 L 08/23/24 23:11 98.4 F 67 18 116/62 93 L 08/23/24 20:31 77 08/23/24 20:17 84 08/23/24 19:36 81 18 134/58 92 L 08/23/24 17:13 78 20 133/67 94 L 08/23/24 17:01 69 08/23/24 16:55 93 L 08/23/24 16:52 73 08/23/24 14:05 98.2 F 84 16 110/65 87 L Intake and Output 08/23/24 08/23/24 08/24/24 14:59 22:59 06:59 Other: Weight 80.739 kg GENERAL EXAM: Alert, 69-year-old female, comfortable in no apparent distress. HEAD: Normocephalic and atraumatic EYES: Normal reaction of pupils, equal size. NOSE: Clear with pink turbinates. THROAT: No erythema or exudates. NECK: No masses, no JVD. CHEST: No chest wall deformity. LUNGS: Equal air entry with diffuse expiratory wheezing and rhonchi. On 3 L/min nasal cannula, no conversational dyspnea or accessory muscle use.. CVS: S1 and S2 normal with no audible murmur, regular rhythm. No extra heart sounds ABDOMEN: No hepatosplenomegaly, active bowel sounds, no guarding or rigidity. SPINE: No scoliosis or deformity SKIN: No rashes CENTRAL NERVOUS SYSTEM: No focal deficits, tone is normal in all 4 extremities. EXTREMITIES: There is no peripheral edema, clubbing, or cyanosis. Peripheral pulses are intact. Results - Laboratory Findings CBC and BMP: 08/23/24 14:45 08/23/24 14:45 ABG WBC 15.85 10*3/uL (4.50-10.00) H 08/23/24 14:45 RBC 4.05 10*6/uL (4.10-5.20) L 08/23/24 14:45 Hgb 13.3 g/dL (12.0-15.0) 08/23/24 14:45 Hct 37.7 % (37.2-46.3) 08/23/24 14:45 MCV 93.1 fL (80.0-97.0) 08/23/24 14:45 MCH 32.8 pg (27.0-32.0) H 08/23/24 14:45 MCHC 35.3 g/dL (32.0-37.0) 08/23/24 14:45 Plt Count 112 10*3/uL (140-440) L 08/23/24 14:45 MPV 11.2 fL (9.5-12.2) 08/23/24 14:45 Immature Gran % (Auto) 0.3 % 08/23/24 14:45 Neutrophils % (Manual) 23 % 08/23/24 14:45 Lymphocytes % (Manual) 77 % 08/23/24 14:45 Monocytes % (Manual) 0 % 08/23/24 14:45 Basophils % (Manual) 0 % 08/23/24 14:45 Immature Gran # 0.04 10*3/uL (0.00-0.04) 08/23/24 14:45 Neutrophils # (Manual) 3.65 k/uL (1.3-7.7) 08/23/24 14:45 Lymphocytes # (Manual) 12.20 k/uL (1.0-4.8) H 08/23/24 14:45 Monocytes # (Manual) 0.00 k/uL (0-1.0) 08/23/24 14:45 Basophils # (Manual) 0.00 k/uL (0-0.2) 08/23/24 14:45 Nucleated RBCs 0 /100 WBC (0-0) 08/23/24 14:45 Differential Comment 08/23/24 14:45 Manual Slide Review Performed 08/23/24 14:45 Pathologist Review See comment A 08/23/24 14:45 PT 10.9 sec (10.0-12.5) 08/23/24 14:45 INR 1.0 (<1.2) 08/23/24 14:45 APTT 23.5 sec (22.0-30.0) 08/23/24 14:45 Sodium 138 mmol/L (137-145) 08/23/24 14:45 Potassium 4.2 mmol/L (3.5-5.1) 08/23/24 14:45 Chloride 101 mmol/L (98-107) 08/23/24 14:45 Carbon Dioxide 23 mmol/L (22-30) 08/23/24 14:45 Anion Gap 14 mmol/L 08/23/24 14:45 BUN 17 mg/dL (7-17) 08/23/24 14:45 Creatinine 0.77 mg/dL (0.52-1.04) 08/23/24 14:45 Est GFR (CKD-EPI)AfAm >90 (>60 ml/min/1.73 sqM) 08/23/24 14:45 Est GFR (CKD-EPI)NonAf 79 (>60 ml/min/1.73 sqM) 08/23/24 14:45 Glucose 145 mg/dL (74-99) H 08/23/24 14:45 Plasma Lactic Acid Blanco 1.2 mmol/L (0.7-2.0) 08/23/24 14:45 Calcium 9.6 mg/dL (8.4-10.2) 08/23/24 14:45 Magnesium 1.7 mg/dL (1.6-2.3) 08/23/24 14:45 Total Bilirubin 1.0 mg/dL (0.2-1.3) 08/23/24 14:45 AST 23 U/L (14-36) 08/23/24 14:45 ALT 13 U/L (4-34) 08/23/24 14:45 Alkaline Phosphatase 64 U/L (38-126) 08/23/24 14:45 Troponin I <0.012 ng/mL (0.000-0.034) 08/23/24 14:45 C-Reactive Protein 5.2 mg/dL (<1.0) H 08/23/24 14:45 NT-Pro-B Natriuret Pep 562 pg/mL 08/23/24 14:45 Total Protein 6.8 g/dL (6.3-8.2) 08/23/24 14:45 Albumin 4.4 g/dL (3.5-5.0) 08/23/24 14:45 Procalcitonin <0.20 ng/mL (0.02-0.50) 08/23/24 14:45 Influenza Type A (PCR) Not Detected (Not Detectd) 08/23/24 14:45 Influenza Type B (PCR) Not Detected (Not Detectd) 08/23/24 14:45 RSV (PCR) Not Detected (Not Detectd) 08/23/24 14:45 SARS-CoV-2 (PCR) Not Detected (Not Detectd) 08/23/24 14:45 PT/INR, D-dimer PT 10.9 sec (10.0-12.5) 08/23/24 14:45 INR 1.0 (<1.2) 08/23/24 14:45 Abnormal lab findings: Abnormal Labs 08/23/24 08/23/24 14:45 14:45 WBC 15.85 H RBC 4.05 L MCH 32.8 H Plt Count 112 L Lymphocytes # (Manual) 12.20 H Pathologist Review See comment A Glucose 145 H C-Reactive Protein 5.2 H Assessment and Plan Assessment: Community-acquired left lower lobe pneumonia Possible underlying COPD Acute hypoxemic respiratory failure, secondary to above Leukocytosis with abnormal lymphocytosis and abnormal smudge cells, consider hematology consultation Thrombocytopenia, unspecified Diabetes mellitus type 2 Hypertension Chronic marijuana smoker Plan: Patient's medications, labs, imaging reviewed Continue supplemental oxygen to maintain action saturation of 92% or greater, currently on 3 L/min Continue DuoNebs [id number] Add IV Solu-Medrol Continue empiric antibiotics Blood cultures were sent Obtain urine Legionella antigen Viral 4 Plex negative for influenza A/B, RSV, COVID Case to be reviewed with Dr. James, additional recommendations forthcoming I have personally seen and examined the patient, performed the documentation and the assessment and plan as written. Number of minutes spent on the visit:20 Time with Patient: Greater than 30
--- NOTE | 2024-08-24 08:23 | XR ---
EXAMINATION TYPE: XR chest 2V DATE OF EXAM: 08/24/2024 7:14 AM COMPARISON: ML tolerated 08/23/24 CLINICAL INDICATION: Female, 69 years old with history of pneumonia: Shortness of breath TECHNIQUE: XR chest 2V views of the chest are obtained. FINDINGS: Scattered senescent parenchymal changes noted. Hyperinflation compatible with COPD. No evidence for infiltrate. No evidence for atelectasis. Heart size is stable. Mediastinal structures are stable and grossly unremarkable. No evidence for hilar prominence. Degenerative changes dorsal spine. IMPRESSION: 1. No evidence for acute pulmonary disease. [facility], , 08/24/2024 8:20 AM
[2024-08-24] MEDS ORDERED: NON FORMULARY DRUG (Amlodipine Besylate/Benazepril [Amlodipine Besylate/Benazepril 10-20 M PO SCH (09:00)
[2024-08-24] MEDS ORDERED: methylPREDNISolone SOD SUCCI 40 MG/ML 1 ML VIAL IV SCH (09:00)
[2024-08-24] MEDS: amLODIPine 10 MG TAB PO SCH (09:21)
[2024-08-24] MEDS: AZITHROMYCIN 500 MG TAB PO SCH (09:22)
--- NOTE | 2024-08-24 09:22 | P.HPIM ---
History of Present Illness H&P Date: 08/24/24 This is a 69-year-old female who presented to the emergency department with URI symptoms. Patient reports coughing, congestion, and nasal drainage for the last couple of days. Cough is relatively nonproductive. She checked her pulse ox at home and it was in the 70s. Chest xray on admission shows pneumonia. Pulmonary have been consulted. She is maintained on 2L of oxygen, updrafts, and IV steroid s. Further medical history as noted below. Review of Systems Constitutional: Reports fatigue, Denies chills, Denies fever Ears, nose, mouth and throat: Reports nasal congestion Cardiovascular: Denies chest pain, Denies dyspnea on exertion Respiratory: Reports congestion, Reports cough, Denies dyspnea Gastrointestinal: Denies abdominal pain, Denies nausea, Denies vomiting Musculoskeletal: Denies arm numbness/tingling, Denies leg numbness/tingling Neurological: Denies headaches, Denies weakness Past Medical History Past Medical History: Diabetes Mellitus, Hypertension Additional Past Medical History / Comment(s): uterine tumor History of Any Multi-Drug Resistant Organisms: None Reported Past Surgical History: Section, Hysterectomy, Tubal Ligation Past Psychological History: No Psychological Hx Reported Smoking Status: Never smoker Past Alcohol Use History: None Reported Past Drug Use History: Marijuana Medications and Allergies Home Medications Medication Instructions Recorded Confirmed Type Pioglitazone [Actos] 30 mg PO DAILY 05/20/23 08/23/24 History amLODIPine BESYLATE/BENAZEPRIL 1 cap PO DAILY 05/20/23 08/23/24 History [amLODIPine BESYLATE/BENAZEPRIL 10-20 mg] metFORMIN HCL [Glucophage] 500 mg PO BID 05/20/23 08/23/24 History Allergies Allergy/AdvReac Type Severity Reaction Status Date / Time No Known Allergies Allergy Verified 08/23/24 16:37 Physical Exam Vitals: Vital Signs Temp Pulse Resp BP Pulse Ox 08/24/24 07:10 99.4 F 76 20 124/59 92 L 08/24/24 06:00 98.7 F 71 18 131/64 94 L 08/24/24 03:00 73 18 139/70 93 L 08/24/24 00:19 70 18 123/63 92 L 08/23/24 23:11 98.4 F 67 18 116/62 93 L 08/23/24 20:31 77 08/23/24 20:17 84 08/23/24 19:36 81 18 134/58 92 L 08/23/24 17:13 78 20 133/67 94 L 08/23/24 17:01 69 08/23/24 16:55 93 L 08/23/24 16:52 73 08/23/24 14:05 98.2 F 84 16 110/65 87 L - Constitutional General appearance: cooperative, no acute distress - EENT Eyes: PERRLA - Neck Neck: no lymphadenopathy, normal ROM, no rigidity - Respiratory Respiratory: bilateral: diminished - Cardiovascular Heart sounds: normal: S1, S2 - Gastrointestinal General gastrointestinal: soft, no tenderness - Integumentary Integumentary: normal, normal turgor - Psychiatric Psychiatric: A&O x's 3 Results CBC & Chem 7: 08/23/24 14:45 08/23/24 14:45 Labs: Abnormal Lab Results - Last 24 Hours (Table) 08/23/24 08/23/24 Range/Units 14:45 14:45 WBC 15.85 H (4.50-10.00) 10*3/uL RBC 4.05 L (4.10-5.20) 10*6/uL MCH 32.8 H (27.0-32.0) pg Plt Count 112 L (140-440) 10*3/uL Lymphocytes # (Manual) 12.20 H (1.0-4.8) k/uL Pathologist Review See comment A Glucose 145 H (74-99) mg/dL C-Reactive Protein 5.2 H (<1.0) mg/dL Assessment and Plan (1) Diabetes Current Visit: Yes Status: Acute Code(s): E11.9 - TYPE 2 DIABETES MELLITUS WITHOUT COMPLICATIONS SNOMED Code(s): 48519230 (2) Hypertension Current Visit: Yes Status: Acute Code(s): I10 - ESSENTIAL (PRIMARY) HYPERTENSION SNOMED Code(s): 73642365 (3) Pneumonia Current Visit: Yes Status: Acute Code(s): J18.9 - PNEUMONIA, UNSPECIFIED ORGANISM SNOMED Code(s): 515433384 (4) Hypoxia Current Visit: No Status: Acute Code(s): R09.02 - HYPOXEMIA SNOMED Code(s): 608106937 Plan: Check CBC and CMP in the morning. Appreciate consultants recommendations. Patient seen and evaluated by nurse practitioner, physician in agreement with plan.
[2024-08-24] MEDS: PIOGLITAZONE 30 MG TAB PO SCH (11:09)
--- NOTE | 2024-08-24 11:18 | CT ---
EXAMINATION TYPE: CT angio chest DATE OF EXAM: 08/24/2024 10:41 AM COMPARISON: None. CLINICAL INDICATION: Female, 69 years old with history of Hypoxemia, Hypoxemia, TECHNIQUE: Axial CT was performed with sagittal and coronal reformats. 3D reconstruction and/or MIP imaging was also performed on a separate workstation. IV CONTRAST: without and with IV Contrast, patient injected with 100 ml mL of Isovue 370. (None if em pty) CT DLP: 276.6 mGycm, Automated exposure control for dose reduction was used. FINDINGS: PULMONARY ARTERIES: The pulmonary arteries and their major tributaries are patent. I do not see joy dence for sizable filling defect to suggest pulmonary embolic process. LUNGS: Scattered patchy infiltrates may reflect underlying pneumonia. Correlate clinically. No pulmon chel nodule or mass is detected. No pleural effusion. MEDIASTINUM: Thoracic aorta is of normal caliber,however, evaluation is limited given timing of the contrast bolus. If there is concern for thoracic aortic pathology consider HERIBERTO. Correlate clinicall y. No evidence for mediastinal mass. No mediastinal lymph nodes greater than 1cm. HEART: Size within normal limits. No significant coronary artery calcifications. HILAR STRUCTURES: No evidence for mass. No hilar lymph nodes greater than 1 cm. UPPER ABDOMEN: No significant abnormality is seen. IMPRESSION: 1. Scattered patchy infiltrates may reflect underlying pneumonia. Correlate clinically. [facility], , 08/24/2024 11:16 AM
[2024-08-24] MEDS: methylPREDNISolone SOD SUCCI 40 MG/ML 1 ML VIAL IV SCH (11:25)
[2024-08-24 12:15] LABS: Glucose,Whole Blood 147 mg/dL (70-110)
[2024-08-24] MEDS: INSULIN LISPRO (HumaLOG) 100 UNIT/ML 10 mL VL SQ SCH (12:16)
--- NOTE | 2024-08-24 14:12 | P.CONS ---
History of Present Illness - Reason for Consult Consult date: 08/24/24 lymphocytosis and smudge cells - History of Present Illness Ms. Prince is a pleasant 69-year-old female consulted for lymphocytosis. Patient history significant for benign uterine tumor status post hysterectomy and tubal ligation. She came in here for chief complaint sinus pain, cough, sore throat, and hypoxia from low O2 saturation reading. Patient denies any personal history of cancer. Admits to family history of cancer. She does not follow-up with a reimbursement representative/oncologist. Discussed labs with patient. Previous reports from outpatient workup reviewed regarding lymphocytosis. She has been previously diagnosed with early asymptomatic CLL, but was not aware of diagnosis. Patient denies any fever, chills, headaches, abnormal weight loss, nausea, vomiting, diarrhea. Past Medical History Past Medical History: Diabetes Mellitus, Hypertension Additional Past Medical History / Comment(s): uterine tumor History of Any Multi-Drug Resistant Organisms: None Reported Past Surgical History: Section, Hysterectomy, Tubal Ligation Past Psychological History: No Psychological Hx Reported Smoking Status: Never smoker Past Alcohol Use History: None Reported Past Drug Use History: Marijuana Medications and Allergies Home Medications Medication Instructions Recorded Confirmed Type Pioglitazone [Actos] 30 mg PO DAILY 05/20/23 08/23/24 History amLODIPine BESYLATE/BENAZEPRIL 1 cap PO DAILY 05/20/23 08/23/24 History [amLODIPine BESYLATE/BENAZEPRIL 10-20 mg] metFORMIN HCL [Glucophage] 500 mg PO BID 05/20/23 08/23/24 History predniSONE [Deltasone] 20 mg PO DAILY #9 tab 08/27/24 Rx Allergies Allergy/AdvReac Type Severity Reaction Status Date / Time No Known Allergies Allergy Verified 08/23/24 16:37 Physical Exam Vitals: Vital Signs Temp Pulse Resp BP Pulse Ox 08/24/24 10:21 98.3 F 80 18 133/67 94 L 08/24/24 09:37 82 08/24/24 09:24 80 95 08/24/24 09:20 75 20 90 L 08/24/24 07:10 99.4 F 76 20 124/59 92 L 08/24/24 06:00 98.7 F 71 18 131/64 94 L 08/24/24 03:00 73 18 139/70 93 L 08/24/24 00:19 70 18 123/63 92 L 08/23/24 23:11 98.4 F 67 18 116/62 93 L 08/23/24 20:31 77 08/23/24 20:17 84 08/23/24 19:36 81 18 134/58 92 L 08/23/24 17:13 78 20 133/67 94 L 08/23/24 17:01 69 08/23/24 16:55 93 L 08/23/24 16:52 73 08/23/24 14:05 98.2 F 84 16 110/65 87 L Vitals: Signs Reviewed Physical Exam: General: nontoxic, no distress, appears at stated age Cardiovascular: S1 S2 reg, no murmur, rubs, or gallops Lungs: CTA bilateral, no rhonchi, no rales Abdominal: soft, non-tender to palpataion Extremities: no gross muscle atrophy, no edema Neuro: Alert, Oriented Psych: well appearing, appropriate affect Results CBC & Chem 7: 08/27/24 06:52 08/27/24 06:52 Labs: Abnormal Lab Results - Last 24 Hours (Table) 08/23/24 08/23/24 Range/Units 14:45 14:45 WBC 15.85 H (4.50-10.00) 10*3/uL RBC 4.05 L (4.10-5.20) 10*6/uL MCH 32.8 H (27.0-32.0) pg Plt Count 112 L (140-440) 10*3/uL Lymphocytes # (Manual) 12.20 H (1.0-4.8) k/uL Pathologist Review See comment A Glucose 145 H (74-99) mg/dL C-Reactive Protein 5.2 H (<1.0) mg/dL Assessment and Plan Plan: #. Acute hypoxic respiratory failure secondary to pneumonia - Chest CTA displaying scattered patchy infiltrates may reflect underlying pneumonia. - Antibiotics given in ED - defer to primary team. - Continue with breathing treatment. #. History of previously diagnosed CLL #. Leukocytosis with abnormal lymphocytosis and abnormal smudge cells Lymphocyte count today 12.20. Previously 30.50 on May 22, 2023. Pathology report displaying leukocytosis with mature lymphocytosis and increased smudge cells. No significant red blood cell morphologic abnormal ities. Mild thrombocytopenia with rare large platelets. 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 Continue to monitor as patient is asymptomatic. Immunoglobulins ordered. Add: Patient personally seen, examined, and management plan formulated with resident Consult placed for lymphocytosis, which is chronic. There is previous flow cytometry noted in the EMR, that confirmed CLL. Patient did not recall seeing hematology previously It appears that she has asymptomatic disease. Current increase in absolute lymphocyte count likely due to acute infection. It is anticipated that her counts will diminish back to her usual baseline, as acute condition resolves. Check immunoglobulin levels. Consider IVIG infusion if the patient does not respond to conventional treatment for infection Anticipate continued observation for her CLL, with plan for outpatient follow-up on discharge
[2024-08-24 17:36] LABS: Glucose,Whole Blood 271 mg/dL (70-110)
[2024-08-24 20:05] LABS: Glucose,Whole Blood 198 mg/dL (70-110)
[2024-08-24] MEDS: ZOLPIDEM 5 MG TAB PO PRN (21:17)
[2024-08-25 07:05] LABS: Glucose,Whole Blood 236 mg/dL (70-110)
[2024-08-25 08:30] LABS: HCT 37.6 % (37.2-46.3); HGB 12.3 g/dL (12.0-15.0); MCH 31.8 pg (27.0-32.0); MCHC 32.7 g/dL (32.0-37.0); MCV 97.2 FL (80.0-97.0); NRBC Per 100 WBC 0.02 X 10*3/uL (0.00-0.01); Platelet Count 128 X 10*3/uL (140-440); RBC 3.87 X 10*6/uL (4.10-5.20); RDW 13.9 % (11.5-14.5); WBC 22.68 X 10*3/uL (4.50-10.00)
[2024-08-25 08:37] LABS: BUN/Creat Ratio 18.71 Ratio (12.00-20.00); Blood Urea Nitrogen 13.1 mg/dL (9.0-27.0); Glucose 180 mg/dL (70-110)
[2024-08-25 08:38] LABS: ALT 13 U/L (8-44); AST 19 U/L (13-35); Albumin 4.3 g/dL (3.8-4.9); Albumin/Globulin Ratio 2.05 Ratio (1.60-3.17); Alkaline Phosphatase 59 U/L (41-126); Anion Gap 13.50 mmol/L (4.00-12.00); Calcium 9.3 mg/dL (8.7-10.3); Carbon Dioxide 25.5 mmol/L (21.6-31.8); Chloride 103 mmol/L (96-109); Globulin 2.1 g/dL (1.6-3.3); Potassium 4.1 mmol/L (3.5-5.5); Sodium 142 mmol/L (135-145); Total Protein 6.4 g/dL (6.2-8.2)
[2024-08-25 10:28] LABS: Immunoglobulin G 491.0 mg/dL (700.0-1600.0)
[2024-08-25 10:36] LABS: Immunoglobulin M <35.0 mg/dL (40.0-280.0)
--- NOTE | 2024-08-25 12:06 | P.PN ---
Subjective Progress Note Date: 08/25/24 Patient seen and evaluated at bedside. No acute complaints. Patient states she was aware of leukocytosis and states she may was previously seen by Dr. Merida. Objective - Vital Signs Vital signs: Vital Signs Temp 97.7 F 08/25/24 07:01 Pulse 86 08/25/24 07:01 Resp 18 08/25/24 07:01 BP 122/71 08/25/24 07:01 Pulse Ox 94 L 08/25/24 07:01 FiO2 Intake & Output 08/24/24 08/25/24 08/25/24 18:59 06:59 18:59 Intake Total 300 Output Total 600 Balance -300 Weight 80.739 kg Intake: Oral 300 Output: Urine 600 Other: Voiding Method Toilet - Exam Physical Exam: General: nontoxic, no distress, appears at stated age Cardiovascular: S1 S2 reg, no murmur, rubs, or gallops Lungs: CTA bilateral, no rhonchi, no rales Abdominal: soft, non-tender to palpataion - Labs CBC & Chem 7: 08/25/24 05:37 08/25/24 05:37 Labs: Abnormal Lab Results - Last 24 Hours (Table) 08/24/24 08/24/24 08/24/24 Range/Units 12:13 17:32 20:03 POC Glucose (mg/dL) 147 H 271 H 198 H (70-110) mg/dL 08/25/24 Range/Units 07:05 POC Glucose (mg/dL) 236 H (70-110) mg/dL Microbiology - Last 24 Hours (Table) 08/23/24 14:45 Blood Culture - Preliminary Blood Assessment and Plan Plan: #. Acute hypoxic respiratory failure secondary to pneumonia - Chest CTA displaying scattered patchy infiltrates may reflect underlying pneumonia. - Antibiotics given in ED - defer to primary team. - Continue with breathing treatment. #. Monoclonal B-cell lymphocytosis #. Leukocytosis with abnormal lymphocytosis and abnormal smudge cells Lymphocyte count today 12.20. Previously 30.50 on May 22, 2023. Pathology report displaying leukocytosis with mature lymphocytosis and increased smudge cells. No significant red blood cell morphologic abnormalities. Mild thrombocytopenia with rare large platelets. 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 Continue to monitor as patient is asymptomatic. Immunoglobulins pending. Patient asymptomatic, but will need to follow-up outpatient and monitor every 6 months to 1 year.
[2024-08-25 12:23] LABS: Glucose,Whole Blood 264 mg/dL (70-110)
--- NOTE | 2024-08-25 14:17 | P.PN ---
Subjective Progress Note Date: 08/25/24 Patient is a 69-year-old female with past medical history significant for hypertension, diabetes mellitus. She is a lifelong tobacco smoker denies history of COPD or asthma. 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 Also, smokes marijuana daily. Presented the emergency department yesterday afternoon complaining of sinus pressure/pain and sore throat. Also, checked her oxygen level with her home pulse oximeter which was reportedly reading 70%. She was placed on supplemental oxygen on arrival. Workup in the emergency department including a chest x-ray showing a left lower lobe airspace opacity concerning for pneumonia. CBC remarkable for leukocytosis with a WBC count of 15.9. CMP unremarkable, electrolytes WDL, creatinine 0.77, glucose 145. Lactic 1.2. Troponin less than 0.012. NT-proBNP 562. Procalcitonin level less than 0.2. Viral 4 Plex negative for influenza A/B, RSV, COVID. Patient currently being evaluated the emergency department. She is resting comfortably on 3 L/min nasal cannula. Starting last Friday, developed frontal sinus pressure/pain, sore throat, and "rumbling in her chest". Denies any significant shortness of breath. Denies any cough. Denies any sputum production. Denies any fevers or chills. Denies any recent sick contacts. Denies any chest pain, hemoptysis, or palpitations, unilateral lower extremity edema. She was previously placed on empiric antibiotics in the ED in the form azithromycin and Rocephin. Afebrile. Vital signs stable. The patient is seen today August 25, 2024 in follow-up on the regular medical floor. She is currently sitting up in bed. Awake and alert in no acute distress. Maintaining good O2 saturations in the 90s on 3 L/min per nasal cannula. She is feeling better but not quite back to her baseline. CT angiogram of the chest revealed sketchy patchy infiltrates possibly reflecting pneumonia. Procalcitonin was negative at 0.20. No evidence of pulmonary emboli. Blood culture revealing no growth thus far. White count 22.6. Hemoglobin 12.3. Platelets 128. Sodium 142. Potassium 4.1. Bicarb 26. BUN 13. Creatinine 0.7. Glucose 180. IgG level 491. IgA less than 65. IgM less than 35. IgE less than 5.0. She remains on DuoNeb inhalations, IV Solu-Medrol. Currently on ceftriaxone. Lactated Ringer's at 20 mL/h. Objective - Vital Signs Vital signs: Vital Signs Temp 97.7 F 08/25/24 12:21 Pulse 103 H 08/25/24 12:21 Resp 22 08/25/24 12:21 BP 129/74 08/25/24 12:21 Pulse Ox 97 08/25/24 12:21 FiO2 Intake & Output 08/24/24 08/25/24 08/25/24 18:59 06:59 18:59 Intake Total 300 Output Total 600 Balance -300 Weight 80.739 kg Intake: Oral 300 Output: Urine 600 Other: Voiding Method Toilet - Exam GENERAL EXAM: Alert, 69-year-old female, sitting up in bed, on 3 L nasal cannula, comfortable in no apparent distress. HEAD: Normocephalic and atraumatic EYES: Normal reaction of pupils, equal size. NOSE: Clear with pink turbinates. THROAT: No erythema or exudates. NECK: No masses, no JVD. CHEST: No chest wall deformity. LUNGS: Equal air entry with coarse crackles in the posterior bases. CVS: S1 and S2 normal with no audible murmur, regular rhythm. No extra heart dharmesh nds ABDOMEN: No hepatosplenomegaly, active bowel sounds, no guarding or rigidity. SPINE: No scoliosis or deformity SKIN: No rashes CENTRAL NERVOUS SYSTEM: No focal deficits, tone is normal in all 4 extremities. EXTREMITIES: There is no peripheral edema, clubbing, or cyanosis. Peripheral pulses are intact. - Labs CBC & Chem 7: 08/25/24 05:37 08/25/24 05:37 Labs: Abnormal Lab Results - Last 24 Hours (Table) 08/24/24 08/24/24 08/25/24 Range/Units 17:32 20:03 05:37 WBC (4.50-10.00) X 10*3/uL RBC (4.10-5.20) X 10*6/uL MCV (80.0-97.0) FL Plt Count (140-440) X 10*3/uL NRBC/100 WBC Diff (0.00-0.01) X 10*3/uL Anion Gap (4.00-12.00) mmol/L Glucose (70-110) mg/dL POC Glucose (mg/dL) 271 H 198 H (70-110) mg/dL IgG 491.0 L (700.0-1600.0) mg/dL IgA <65.0 L (60.0-350.0) mg/dL IgM <35.0 L (40.0-280.0) mg/dL 08/25/24 08/25/24 08/25/24 Range/Units 05:37 05:37 07:05 WBC 22.68 H (4.50-10.00) X 10*3/uL RBC 3.87 L (4.10-5.20) X 10*6/uL MCV 97.2 H (80.0-97.0) FL Plt Count 128 L (140-440) X 10*3/uL NRBC/100 WBC Diff 0.02 H (0.00-0.01) X 10*3/uL Anion Gap 13.50 H (4.00-12.00) mmol/L Glucose 180 H (70-110) mg/dL POC Glucose (mg/dL) 236 H (70-110) mg/dL IgG (700.0-1600.0) mg/dL IgA (60.0-350.0) mg/dL IgM (40.0-280.0) mg/dL 08/25/24 Range/Units 12:22 WBC (4.50-10.00) X 10*3/uL RBC (4.10-5.20) X 10*6/uL MCV (80.0-97.0) FL Plt Count (140-440) X 10*3/uL NRBC/100 WBC Diff (0.00-0.01) X 10*3/uL Anion Gap (4.00-12.00) mmol/L Glucose (70-110) mg/dL POC Glucose (mg/dL) 264 H (70-110) mg/dL IgG (700.0-1600.0) mg/dL IgA (60.0-350.0) mg/dL IgM (40.0-280.0) mg/dL Microbiology - Last 24 Hours (Table) 08/23/24 14:45 Blood Culture - Preliminary Blood Assessment and Plan Assessment: Community-acquired left lower lobe pneumonia versus atypical pneumonia. Procalcitonin negative. CT scan of the chest revealed scattered patchy infiltrates Possible underlying COPD Acute hypoxemic respiratory failure, secondary to above Leukocytosis with abnormal lymphocytosis and abnormal smudge cells, consider hematology consultation Thrombocytopenia, unspecified Possible underlying immunodeficiency will plan for bronchoscopy with BAL in a.m. Diabetes mellitus type 2 Hypertension Chronic marijuana smoker Plan: The patient was seen and evaluated CT scan of the chest, labs and medications reviewed Will plan for bronchoscopy with BAL in the a.m. Patient agreeable to the plan Continue bronchodilators, steroids Continue ceftriaxone Titrate down the FiO2 as tolerated Increase her activity as tolerated We will continue to follow I have personally seen and examined the patient, performed the documentation and the assessment and plan as written. Number of minutes spent on the visit: 10 Dictation was produced using [employer] dictation software. Please excuse any grammatical, word or spelling errors.
[2024-08-25 17:24] LABS: Glucose,Whole Blood 188 mg/dL (70-110)
[2024-08-25 20:05] LABS: Glucose,Whole Blood 218 mg/dL (70-110)
--- NOTE | 2024-08-25 21:35 | P.PN ---
Subjective Progress Note Date: 08/25/24 Principal diagnosis: Recurrent LL pneumonia This is a continuing process on a 69-year-old white female with symptomatic left lower lobe pneumonia this is a recurrence. Had a short discussion with pulmonology who has decided given her history and her current recurrence, bronchoscopy will be scheduled for the a.m. she does feel much better nonproductive cough at this point. No diarrhea Objective - Vital Signs Vital signs: Vital Signs Temp 99.0 F 08/25/24 18:58 Pulse 87 08/25/24 19:52 Resp 20 08/25/24 19:52 BP 110/58 08/25/24 18:58 Pulse Ox 93 L 08/25/24 18:58 FiO2 Intake & Output 08/25/24 08/25/24 08/26/24 06:59 18:59 06:59 Intake Total 300 Output Total 600 Balance -300 Intake: Oral 300 Output: Urine 600 Other: Voiding Method Toilet # Voids 2 - Constitutional General appearance: Present: average body habitus, cooperative - EENT ENT: Absent: hard of hearing - Neck Neck: Absent: lymphadenopathy - Respiratory Respiratory: left: rales - Cardiovascular Rhythm: regular Heart sounds: normal: S1, S2 Abnormal Heart Sounds: Absent: S3 Gallop - Gastrointestinal General gastrointestinal: Present: soft. Absent: tenderness - Labs CBC & Chem 7: 08/25/24 05:37 08/25/24 05:37 Labs: Abnormal Lab Results - Last 24 Hours (Table) 08/25/24 08/25/24 08/25/24 Range/Units 05:37 05:37 05:37 WBC 22.68 H (4.50-10.00) X 10*3/uL RBC 3.87 L (4.10-5.20) X 10*6/uL MCV 97.2 H (80.0-97.0) FL Plt Count 128 L (140-440) X 10*3/uL NRBC/100 WBC Diff 0.02 H (0.00-0.01) X 10*3/uL Anion Gap 13.50 H (4.00-12.00) mmol/L Glucose 180 H (70-110) mg/dL POC Glucose (mg/dL) (70-110) mg/dL IgG 491.0 L (700.0-1600.0) mg/dL IgA <65.0 L (60.0-350.0) mg/dL IgM <35.0 L (40.0-280.0) mg/dL 08/25/24 08/25/24 08/25/24 Range/Units 07:05 12:22 17:22 WBC (4.50-10.00) X 10*3/uL RBC (4.10-5.20) X 10*6/uL MCV (80.0-97.0) FL Plt Count (140-440) X 10*3/uL NRBC/100 WBC Diff (0.00-0.01) X 10*3/uL Anion Gap (4.00-12.00) mmol/L Glucose (70-110) mg/dL POC Glucose (mg/dL) 236 H 264 H 188 H (70-110) mg/dL IgG (700.0-1600.0) mg/dL IgA (60.0-350.0) mg/dL IgM (40.0-280.0) mg/dL 08/25/24 Range/Units 20:04 WBC (4.50-10.00) X 10*3/uL RBC (4.10-5.20) X 10*6/uL MCV (80.0-97.0) FL Plt Count (140-440) X 10*3/uL NRBC/100 WBC Diff (0.00-0.01) X 10*3/uL Anion Gap (4.00-12.00) mmol/L Glucose (70-110) mg/dL POC Glucose (mg/dL) 218 H (70-110) mg/dL IgG (700.0-1600.0) mg/dL IgA (60.0-350.0) mg/dL IgM (40.0-280.0) mg/dL Microbiology - Last 24 Hours (Table) 08/23/24 14:45 Blood Culture - Preliminary Blood Assessment and Plan (1) Diabetes Current Visit: Yes Status: Acute Code(s): E11.9 - TYPE 2 DIABETES MELLITUS WITHOUT COMPLICATIONS SNOMED Code(s): 06599777 (2) Hypertension Current Visit: Yes Status: Acute Code(s): I10 - ESSENTIAL (PRIMARY) HYPERTENSION SNOMED Code(s): 13851988 (3) Pneumonia Current Visit: Yes Status: Acute Code(s): J18.9 - PNEUMONIA, UNSPECIFIED ORGANISM SNOMED Code(s): 467535796 Plan: Await bronchoscopy in the a.m. Check CBC and CP in a.m. Continue current regimen of treatment. The patient is clinically improved but given her inappropriate recurrence, bronchoscopy to be scheduled.
[2024-08-26 07:07] LABS: Glucose,Whole Blood 208 mg/dL (70-110)
[2024-08-26] MEDS ORDERED: PROPOFOL 10 MG/ML 20 ML VIAL IV ONE (07:30)
[2024-08-26] MEDS ORDERED: LIDOCAINE 2% (PF) 20 MG/ML 5 ML VIAL ONE (07:30)
[2024-08-26] MEDS: IV FLUID CONTINUATION 1,000 ML IV ONE ×2 (07:34→07:42)
[2024-08-26] MEDS: LIDOCAINE 2% INJ 20 MG/ML INTRATRACH ONE (07:37)
[2024-08-26 07:52] LABS: HCT 32.9 % (37.2-46.3); HGB 10.9 g/dL (12.0-15.0); MCH 32.2 pg (27.0-32.0); MCHC 33.1 g/dL (32.0-37.0); MCV 97.3 FL (80.0-97.0); NRBC Per 100 WBC 0 X 10*3/uL (0.00-0.01); Platelet Count 150 X 10*3/uL (140-440); RBC 3.38 X 10*6/uL (4.10-5.20); RDW 13.9 % (11.5-14.5); WBC 27.04 X 10*3/uL (4.50-10.00)
[2024-08-26 08:08] LABS: ALT 11 U/L (8-44); AST 15 U/L (13-35); Albumin 4.0 g/dL (3.8-4.9); Albumin/Globulin Ratio 2.35 Ratio (1.60-3.17); Alkaline Phosphatase 53 U/L (41-126); Anion Gap 13.20 mmol/L (4.00-12.00); BUN/Creat Ratio 29.71 Ratio (12.00-20.00); Blood Urea Nitrogen 20.8 mg/dL (9.0-27.0); Calcium 9.0 mg/dL (8.7-10.3); Carbon Dioxide 25.8 mmol/L (21.6-31.8); Chloride 104 mmol/L (96-109); Globulin 1.7 g/dL (1.6-3.3); Glucose 219 mg/dL (70-110); Potassium 3.5 mmol/L (3.5-5.5); Sodium 143 mmol/L (135-145); Total Protein 5.7 g/dL (6.2-8.2)
--- NOTE | 2024-08-26 08:27 | P.PN ---
Subjective Progress Note Date: 08/26/24 This is a 69-year-old female who presented to the emergency department with URI symptoms. Patient reports coughing, congestion, and nasal drainage for the last couple of days. Cough is relatively nonproductive. She checked her pulse ox at home and it was in the 70s. Chest xray on admission shows pneumonia. Pulmonary have been consulted. She is maintained on 2L of oxygen, updrafts, and IV steroids. 08/26/2024 Patient seen this morning sitting up in bed resting comfortably. She is undergoing a bronchoscopy today. She is still reporting a congested cough. Objective - Vital Signs Vital signs: Vital Signs Temp 98.3 F 08/26/24 08:00 Pulse 116 H 08/26/24 08:00 Resp 16 08/26/24 08:00 BP 128/67 08/26/24 08:00 Pulse Ox 93 L 08/26/24 08:00 FiO2 Intake & Output 08/25/24 08/26/24 08/26/24 18:59 06:59 18:59 Intake Total 200 Balance 200 Intake: IV 200 Other: Voiding Method Toilet # Voids 2 1 - Constitutional General appearance: Present: cooperative, no acute distress - EENT Eyes: Present: PERRLA - Neck Neck: Present: normal ROM. Absent: lymphadenopathy, rigidity - Respiratory Respiratory: left: diminished - Cardiovascular Heart sounds: normal: S1, S2 - Gastrointestinal General gastrointestinal: Present: soft. Absent: tenderness - Integumentary Integumentary: Present: normal, normal turgor - Psychiatric Psychiatric: Present: A&O x's 3 - Labs CBC & Chem 7: 08/26/24 05:31 08/26/24 05:31 Labs: Abnormal Lab Results - Last 24 Hours (Table) 08/25/24 08/25/24 08/25/24 Range/Units 05:37 05:37 05:37 WBC 22.68 H (4.50-10.00) X 10*3/uL RBC 3.87 L (4.10-5.20) X 10*6/uL Hgb (12.0-15.0) g/dL Hct (37.2-46.3) % MCV 97.2 H (80.0-97.0) FL MCH (27.0-32.0) pg Plt Count 128 L (140-440) X 10*3/uL NRBC/100 WBC Diff 0.02 H (0.00-0.01) X 10*3/uL Anion Gap 13.50 H (4.00-12.00) mmol/L BUN/Creatinine Ratio (12.00-20.00) Ratio Glucose 180 H (70-110) mg/dL POC Glucose (mg/dL) (70-110) mg/dL Total Protein (6.2-8.2) g/dL IgG 491.0 L (700.0-1600.0) mg/dL IgA <65.0 L (60.0-350.0) mg/dL IgM <35.0 L (40.0-280.0) mg/dL 08/25/24 08/25/24 08/25/24 Range/Units 12:22 17:22 20:04 WBC (4.50-10.00) X 10*3/uL RBC (4.10-5.20) X 10*6/uL Hgb (12.0-15.0) g/dL Hct (37.2-46.3) % MCV (80.0-97.0) FL MCH (27.0-32.0) pg Plt Count (140-440) X 10*3/uL NRBC/100 WBC Diff (0.00-0.01) X 10*3/uL Anion Gap (4.00-12.00) mmol/L BUN/Creatinine Ratio (12.00-20.00) Ratio Glucose (70-110) mg/dL POC Glucose (mg/dL) 264 H 188 H 218 H (70-110) mg/dL Total Protein (6.2-8.2) g/dL IgG (700.0-1600.0) mg/dL IgA (60.0-350.0) mg/dL IgM (40.0-280.0) mg/dL 08/26/24 08/26/24 08/26/24 Range/Units 05:31 05:31 07:06 WBC 27.04 H (4.50-10.00) X 10*3/uL RBC 3.38 L (4.10-5.20) X 10*6/uL Hgb 10.9 L (12.0-15.0) g/dL Hct 32.9 L (37.2-46.3) % MCV 97.3 H (80.0-97.0) FL MCH 32.2 H (27.0-32.0) pg Plt Count (140-440) X 10*3/uL NRBC/100 WBC Diff (0.00-0.01) X 10*3/uL Anion Gap 13.20 H (4.00-12.00) mmol/L BUN/Creatinine Ratio 29.71 H (12.00-20.00) Ratio Glucose 219 H (70-110) mg/dL POC Glucose (mg/dL) 208 H (70-110) mg/dL Total Protein 5.7 L (6.2-8.2) g/dL IgG (700.0-1600.0) mg/dL IgA (60.0-350.0) mg/dL IgM (40.0-280.0) mg/dL Microbiology - Last 24 Hours (Table) 08/23/24 14:45 Blood Culture - Preliminary Blood Assessment and Plan (1) Diabetes Current Visit: Yes Status: Acute Code(s): E11.9 - TYPE 2 DIABETES MELLITUS WITHOUT COMPLICATIONS SNOMED Code(s): 17693150 (2) Hypertension Current Visit: Yes Status: Acute Code(s): I10 - ESSENTIAL (PRIMARY) HYPERTENSION SNOMED Code(s): 21062438 (3) Pneumonia Current Visit: Yes Status: Acute Code(s): J18.9 - PNEUMONIA, UNSPECIFIED ORGANISM SNOMED Code(s): 546197526 (4) Hypoxia Current Visit: No Status: Acute Code(s): R09.02 - HYPOXEMIA SNOMED Code(s): 406018732 Plan: Check CBC and CMP in the morning. Appreciate consultants recommendations. Await bronchoscopy. Patient seen and evaluated by nurse practitioner, physician in agreement with plan.
[2024-08-26 12:07] LABS: Glucose,Whole Blood 247 mg/dL (70-110)
[2024-08-26 13:28] LABS: Appearance,BF Cloudy (Clear)
--- NOTE | 2024-08-26 13:51 | P.PN ---
Subjective Progress Note Date: 08/26/24 Patient is a 69-year-old female with past medical history significant for hypertension, diabetes mellitus. She is a lifelong tobacco smoker denies history of COPD or asthma. 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 Also, smokes marijuana daily. Presented the emergency department yesterday afternoon complaining of sinus pressure/pain and sore throat. Also, checked her oxygen level with her home pulse oximeter which was reportedly reading 70%. She was placed on supplemental oxygen on arrival. Workup in the emergency department including a chest x-ray showing a left lower lobe airspace opacity concerning for pneumonia. CBC remarkable for leukocytosis with a WBC count of 15.9. CMP unremarkable, electrolytes WDL, creatinine 0.77, glucose 145. Lactic 1.2. Troponin less than 0.012. NT-proBNP 562. Procalcitonin level less than 0.2. Viral 4 Plex negative for influenza A/B, RSV, COVID. Patient currently being evaluated the emergency department. She is resting comfortably on 3 L/min nasal cannula. Starting last Friday, developed frontal sinus pressure/pain, sore throat, and "rumbling in her chest". Denies any significant shortness of breath. Denies any cough. Denies any sputum production. Denies any fevers or chills. Denies any recent sick contacts. Denies any chest pain, hemoptysis, or palpitations, unilateral lower extremity edema. She was previously placed on empiric antibiotics in the ED in the form azithromycin and Rocephin. Afebrile. Vital signs stable. The patient is seen today August 25, 2024 in follow-up on the regular medical floor. She is currently sitting up in bed. Awake and alert in no acute distress. Maintaining good O2 saturations in the 90s on 3 L/min per nasal cannula. She is feeling better but not quite back to her baseline. CT angiogram of the chest revealed sketchy patchy infiltrates possibly reflecting pneumonia. Procalcitonin was negative at 0.20. No evidence of pulmonary emboli. Blood culture revealing no growth thus far. White count 22.6. Hemoglobin 12.3. Platelets 128. Sodium 142. Potassium 4.1. Bicarb 26. BUN 13. Creatinine 0.7. Glucose 180. IgG level 491. IgA less than 65. IgM less than 35. IgE less than 5.0. She remains on DuoNeb inhalations, IV Solu-Medrol. Currently on ceftriaxone. Lactated Ringer's at 20 mL/h. The patient is seen today August 26, 2024 in follow-up on the regular medical floor. She is currently resting comfortably in bed. Awake and alert in no acute distress. She is maintaining good O2 saturations in the 90s on 2 L/min per nasal cannula. She has been afebrile. Hemodynamically stable. She did undergo bronchoscopy with BAL this morning with Dr. Kelley. She tolerated the procedure well. Cultures and cytology are pending. Blood culture revealing no growth. White count 27.0. Hemoglobin 10.9. Platelets 150. Sodium 143. Potassium 3.5. Bicarb 26. BUN 21. Creatinine 0.7. Glucose 219. She is continued on DuoNeb inhalations, Solu-Medrol. Remains on ceftriaxone. Objective - Vital Signs Vital signs: Vital Signs Temp 97.6 F 08/26/24 13:20 Pulse 99 08/26/24 13:20 Resp 16 08/26/24 13:20 BP 104/50 08/26/24 13:20 Pulse Ox 94 L 08/26/24 13:20 FiO2 Intake & Output 08/25/24 08/26/24 08/26/24 18:59 06:59 18:59 Intake Total 200 Balance 200 Intake: IV 200 Other: Voiding Method Toilet Toilet # Voids 2 1 - Exam GENERAL EXAM: Alert, pleasant 69-year-old female, resting in bed, on 2 L nasal cannula, comfortable in no apparent distress. HEAD: Normocephalic and atraumatic EYES: Normal reaction of pupils, equal size. NOSE: Clear with pink turbinates. THROAT: No erythema or exudates. NECK: No masses, no JVD. CHEST: No chest wall deformity. LUNGS: Equal air entry with coarse crackles in the posterior bases. CVS: S1 and S2 normal with no audible murmur, regular rhythm. No extra heart sounds ABDOMEN: No hepatosplenomegaly, active bowel sounds, no guarding or rigidity. SPINE: No scoliosis or deformity SKIN: No rashes CENTRAL NERVOUS SYSTEM: No focal deficits, tone is normal in all 4 extremities. EXTREMITIES: There is no peripheral edema, clubbing, or cyanosis. Peripheral pulses are intact. - Labs CBC & Chem 7: 08/26/24 05:31 08/26/24 05:31 Labs: Abnormal Lab Results - Last 24 Hours (Table) 08/25/24 08/25/24 08/26/24 Range/Units 17:22 20:04 05:31 WBC 27.04 H (4.50-10.00) X 10*3/uL RBC 3.38 L (4.10-5.20) X 10*6/uL Hgb 10.9 L (12.0-15.0) g/dL Hct 32.9 L (37.2-46.3) % MCV 97.3 H (80.0-97.0) FL MCH 32.2 H (27.0-32.0) pg Anion Gap (4.00-12.00) mmol/L BUN/Creatinine Ratio (12.00-20.00) Ratio Glucose (70-110) mg/dL POC Glucose (mg/dL) 188 H 218 H (70-110) mg/dL Total Protein (6.2-8.2) g/dL Fluid Appearance (Clear) 08/26/24 08/26/24 08/26/24 Range/Units 05:31 07:06 07:38 WBC (4.50-10.00) X 10*3/uL RBC (4.10-5.20) X 10*6/uL Hgb (12.0-15.0) g/dL Hct (37.2-46.3) % MCV (80.0-97.0) FL MCH (27.0-32.0) pg Anion Gap 13.20 H (4.00-12.00) mmol/L BUN/Creatinine Ratio 29.71 H (12.00-20.00) Ratio Glucose 219 H (70-110) mg/dL POC Glucose (mg/dL) 208 H (70-110) mg/dL Total Protein 5.7 L (6.2-8.2) g/dL Fluid Appearance Cloudy A (Clear) 08/26/24 Range/Units 12:05 WBC (4.50-10.00) X 10*3/uL RBC (4.10-5.20) X 10*6/uL Hgb (12.0-15.0) g/dL Hct (37.2-46.3) % MCV (80.0-97.0) FL MCH (27.0-32.0) pg Anion Gap (4.00-12.00) mmol/L BUN/Creatinine Ratio (12.00-20.00) Ratio Glucose (70-110) mg/dL POC Glucose (mg/dL) 247 H (70-110) mg/dL Total Protein (6.2-8.2) g/dL Fluid Appearance (Clear) Microbiology - Last 24 Hours (Table) 08/23/24 14:45 Blood Culture - Preliminary Blood Assessment and Plan Assessment: Community-acquired left lower lobe pneumonia versus atypical pneumonia. Procalcitonin negative. CT scan of the chest revealed scattered patchy infiltrates. Status post bronchoscopy with BAL today August 26, 2024. Cultures and cytology pending Possible underlying COPD Acute hypoxemic respiratory failure, secondary to above Leukocytosis with abnormal lymphocytosis and abnormal smudge cells, consider hematology consultation Thrombocytopenia, unspecified Possible underlying immunodeficiency Diabetes mellitus type 2 Hypertension Chronic marijuana smoker Plan: The patient was seen and evaluated Labs and medications reviewed Bbronchoscopy with BAL performed today Cultures and cytology pending Continue DuoNeb inhalations Continue IV Solu-Medrol Continue ceftriaxone Titrate down the FiO2 as tolerated Increase her activity as tolerated Probable discharge in the a.m. This patient was seen independently by the pulmonary nurse practitioner addressing pulmonary issues I have personally seen and examined the patient, performed the documentation and the assessment and plan as written. Number of minutes spent on the visit: 25 Dictation was produced using [employer] dictation software. Please excuse any grammatical, word or spelling errors.
--- NOTE | 2024-08-26 16:49 | P.PN ---
Subjective Progress Note Date: 08/26/24 Patient is seen and evaluated bedside. Has scheduled to speak with BAL this morning. Immunoglobulins: IgG 491, IgA <65, IgM <5, IgE < 35. Objective - Vital Signs Vital signs: Vital Signs Temp 97.6 F 08/26/24 01:06 Pulse 81 08/26/24 06:59 Resp 20 08/26/24 06:59 BP 118/72 08/26/24 01:06 Pulse Ox 92 L 08/26/24 01:06 FiO2 Intake & Output 08/25/24 08/26/24 08/26/24 18:59 06:59 18:59 Intake Total 200 Balance 200 Intake: IV 200 Other: Voiding Method Toilet # Voids 2 1 - Exam Physical Exam: General: nontoxic, no distress, appears at stated age Cardiovascular: coarse crackles bilaterally Lungs: CTA bilateral, no rhonchi, no rales Abdominal: soft, non-tender to palpataion - Labs CBC & Chem 7: 08/26/24 05:31 08/26/24 05:31 Labs: Abnormal Lab Results - Last 24 Hours (Table) 08/25/24 08/25/24 08/25/24 Range/Units 05:37 05:37 05:37 WBC 22.68 H (4.50-10.00) X 10*3/uL RBC 3.87 L (4.10-5.20) X 10*6/uL Hgb (12.0-15.0) g/dL Hct (37.2-46.3) % MCV 97.2 H (80.0-97.0) FL MCH (27.0-32.0) pg Plt Count 128 L (140-440) X 10*3/uL NRBC/100 WBC Diff 0.02 H (0.00-0.01) X 10*3/uL Anion Gap 13.50 H (4.00-12.00) mmol/L BUN/Creatinine Ratio (12.00-20.00) Ratio Glucose 180 H (70-110) mg/dL POC Glucose (mg/dL) (70-110) mg/dL Total Protein (6.2-8.2) g/dL IgG 491.0 L (700.0-1600.0) mg/dL IgA <65.0 L (60.0-350.0) mg/dL IgM <35.0 L (40.0-280.0) mg/dL 08/25/24 08/25/24 08/25/24 Range/Units 12:22 17:22 20:04 WBC (4.50-10.00) X 10*3/uL RBC (4.10-5.20) X 10*6/uL Hgb (12.0-15.0) g/dL Hct (37.2-46.3) % MCV (80.0-97.0) FL MCH (27.0-32.0) pg Plt Count (140-440) X 10*3/uL NRBC/100 WBC Diff (0.00-0.01) X 10*3/uL Anion Gap (4.00-12.00) mmol/L BUN/Creatinine Ratio (12.00-20.00) Ratio Glucose (70-110) mg/dL POC Glucose (mg/dL) 264 H 188 H 218 H (70-110) mg/dL Total Protein (6.2-8.2) g/dL IgG (700.0-1600.0) mg/dL IgA (60.0-350.0) mg/dL IgM (40.0-280.0) mg/dL 08/26/24 08/26/24 08/26/24 Range/Units 05:31 05:31 07:06 WBC 27.04 H (4.50-10.00) X 10*3/uL RBC 3.38 L (4.10-5.20) X 10*6/uL Hgb 10.9 L (12.0-15.0) g/dL Hct 32.9 L (37.2-46.3) % MCV 97.3 H (80.0-97.0) FL MCH 32.2 H (27.0-32.0) pg Plt Count (140-440) X 10*3/uL NRBC/100 WBC Diff (0.00-0.01) X 10*3/uL Anion Gap 13.20 H (4.00-12.00) mmol/L BUN/Creatinine Ratio 29.71 H (12.00-20.00) Ratio Glucose 219 H (70-110) mg/dL POC Glucose (mg/dL) 208 H (70-110) mg/dL Total Protein 5.7 L (6.2-8.2) g/dL IgG (700.0-1600.0) mg/dL IgA (60.0-350.0) mg/dL IgM (40.0-280.0) mg/dL Microbiology - Last 24 Hours (Table) 08/23/24 14:45 Blood Culture - Preliminary Blood Assessment and Plan Assessment: #. Acute hypoxic respiratory failure secondary to pneumonia, improving #. History of recurrent pneumonia - Chest CTA displaying scattered patchy infiltrates may reflect underlying pneumonia. - Antibiotics given in ED - defer to primary team. - Continue with breathing treatment. - Bronchoscopy with BAL this morning #. Monoclonal B-cell lymphocytosis #. Leukocytosis with abnormal lymphocytosis and abnormal smudge cells Lymphocyte count today 12.20. Previously 30.50 on May 22, 2023. Pathology report displaying leukocytosis with mature lymphocytosis and incr eased smudge cells. No significant red blood cell morphologic abnormalities. Mild thrombocytopenia with rare large platelets. 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 Continue to monitor as patient is asymptomatic. Immunoglobulins: IgG 491, IgA <65, IgM <5, IgE < 35. IgG is between 400-600, can consider starting pt on IVIG Patient asymptomatic, but will need to follow-up outpatient and monitor every 6 months to 1 year.
[2024-08-26 17:53] LABS: Glucose,Whole Blood 251 mg/dL (70-110)
--- NOTE | 2024-08-26 18:03 | OP ---
OPERATIVE REPORT DATE OF SERVICE : OPERATIVE REPORT: Bronchoscopy and bronchoalveolar lavage of the left lower lobe. PREOPERATIVE DIAGNOSIS: Left lower lobe pneumonia. POSTOPERATIVE DIAGNOSIS: Left lower lobe pneumonia. ANESTHESIA USED: IV conscious sedation. DESCRIPTION OF PROCEDURE: The patient was prepared according to the bronchoscopy protocol. O2 was applied via Ventimask, a bite block was applied, and we monitored the O2 saturation continuously. Blood pressure was intermittently monitored, cardiac rhythm was continuously monitored. After adequate IV conscious sedation, the bronchoscope was advanced through the bite block down to the vocal cords. Vocal cords were patent and unremarkable. Lidocaine applied over the vocal cords and the bronchoscope was advanced further down. Thorough examination was done of trachea, svetlana, right upper lobe, right middle lobe, right lower lobe, left upper lobe lingula, and left lower lobe. There was clearly significant purulent secretions noted in the left lower lobe, which was lavaged until all clear. Minimal secretions were noted also in the right lower lobe. These were suctioned easily. No evidence of any endobronchial tumors, no bleeding, and no other findings except for apparent secretions mostly in the left lower lobe, more so than the right lower lobe. The procedure was well tolerated, no complications, fluid obtained from the left lower lobe, BAL was sent for different diagnostic studies. The procedure was well tolerated and no complications. MMODL / IJN: [id number] /
[2024-08-26 20:30] LABS: Glucose,Whole Blood 313 mg/dL (70-110)
[2024-08-27 02:23] VITALS: TEMP 98.5
[2024-08-27 07:21] LABS: Glucose,Whole Blood 251 mg/dL (70-110)
[2024-08-27 08:22] VITALS: BP 129/65; PULSE 85; RESP 17
--- NOTE | 2024-08-27 08:41 | XR ---
EXAMINATION TYPE: XR chest 1V portable DATE OF EXAM: 08/27/2024 8:24 AM COMPARISON: Chest radiographs from 08/24/2024 CLINICAL INDICATION: Female, 69 years old with history of Pneumonia; [facility] TECHNIQUE: XR chest 1V portable Frontal view of the chest. FINDINGS: Lungs/Pleura: Multifocal airspace opacities. No evidence of pneumothorax or pleural effusion. Pulmonary vascularity: Pulmonary vascular congestion. Heart/mediastinum: Cardiomediastinal silhouette is unremarkable. Musculoskeletal: No acute osseous pathology. Other findings: None Lines/Tubes: IMPRESSION: Multifocal airspace opacities correlate for pneumonia versus pulmonary edema. [facility], , 08/27/2024 8:39 AM
[2024-08-27] MEDS: predniSONE 20 MG TAB PO SCH (08:55)
[2024-08-27 09:37] LABS: HCT 33.1 % (37.2-46.3); HGB 11.1 g/dL (12.0-15.0); MCH 32.8 pg (27.0-32.0); MCHC 33.5 g/dL (32.0-37.0); MCV 97.9 FL (80.0-97.0); NRBC Per 100 WBC 0.02 X 10*3/uL (0.00-0.01); Platelet Count 176 X 10*3/uL (140-440); RBC 3.38 X 10*6/uL (4.10-5.20); RDW 14.0 % (11.5-14.5); WBC 31.34 X 10*3/uL (4.50-10.00)
[2024-08-27 09:39] LABS: ALT 12 U/L (8-44); AST 16 U/L (13-35); Albumin 3.8 g/dL (3.8-4.9); Albumin/Globulin Ratio 2.71 Ratio (1.60-3.17); Alkaline Phosphatase 52 U/L (41-126); Anion Gap 14.40 mmol/L (4.00-12.00); BUN/Creat Ratio 35.43 Ratio (12.00-20.00); Blood Urea Nitrogen 24.8 mg/dL (9.0-27.0); Calcium 8.8 mg/dL (8.7-10.3); Carbon Dioxide 25.6 mmol/L (21.6-31.8); Chloride 102 mmol/L (96-109); Globulin 1.4 g/dL (1.6-3.3); Glucose 245 mg/dL (70-110); Potassium 3.3 mmol/L (3.5-5.5); Sodium 142 mmol/L (135-145); Total Protein 5.2 g/dL (6.2-8.2)
--- NOTE | 2024-08-27 09:52 | P.DS ---
Providers Date of admission: 08/23/24 16:33 Attending physician: Richmond Byrne Consults: 08/23/24 16:34 Consult Physician Urgent Consulting Provider: Parul Kelley Consult Reason/Comments: Pneumonia with hypoxia Do you want consulting provider notified?: Yes 08/24/24 03:47 Consult Physician Routine Consulting Provider: Rito Guerrero Consult Reason/Comments: lymphocytosis and abnormal smudge cells Do you want consulting provider notified?: Yes, Notify in am Primary care physician: Richmond Byrne - Discharge Diagnosis(es) (1) Diabetes Current Visit: Yes Status: Acute (2) Hypertension Current Visit: Yes Status: Acute (3) Pneumonia Current Visit: Yes Status: Acute Hospital Course: This is a discharge summary on a 69-year-old white female admitted for left lower lobe pneumonia which was recurrent. Significant cannabis use is noted. She ended up having a bronchoscopy with bronchial alveolar lavage with appropriate antibiotic treatment and steroid therapy. The patient is discharged in stable condition no fever. Question element of immunodeficiency. But I suspect this is related to daily cannabis use. We will discontinue cannabis and discharged on steroid therapy. Follow-up in 3 to 7 days. Plan - Discharge Summary New Discharge Prescriptions: New predniSONE [Deltasone] 20 mg PO DAILY #9 tab Continue amLODIPine BESYLATE/BENAZEPRIL [amLODIPine BESYLATE/BENAZEPRIL 10-20 mg] 1 cap PO DAILY Pioglitazone [Actos] 30 mg PO DAILY metFORMIN HCL [Glucophage] 500 mg PO BID Discharge Medication List Pioglitazone [Actos] 30 mg PO DAILY 05/20/23 [History] amLODIPine BESYLATE/BENAZEPRIL [amLODIPine BESYLATE/BENAZEPRIL 10-20 mg] 1 cap PO DAILY 05/20/23 [History] metFORMIN HCL [Glucophage] 500 mg PO BID 05/20/23 [History] predniSONE [Deltasone] 20 mg PO DAILY #9 tab 08/27/24 [Rx] Follow up Appointment(s)/Referral(s): Richmond Byrne MD [Primary Care Provider] - 1 Week Discharge Disposition: HOME SELF-CARE
[2024-08-27] MEDS: POTASSIUM CHLORIDE ER 20 MEQ TAB.ER PO STA (10:55)
--- NOTE | 2024-08-27 12:04 | P.PN ---
Subjective Progress Note Date: 08/27/24 Patient is a 69-year-old female with past medical history significant for hypertension, diabetes mellitus. She is a lifelong tobacco smoker denies history of COPD or asthma. 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 Also, smokes marijuana daily. Presented the emergency department yesterday afternoon complaining of sinus pressure/pain and sore throat. Also, checked her oxygen level with her home pulse oximeter which was reportedly reading 70%. She was placed on supplemental oxygen on arrival. Workup in the emergency department including a chest x-ray showing a left lower lobe airspace opacity concerning for pneumonia. CBC remarkable for leukocytosis with a WBC count of 15.9. CMP unremarkable, electrolytes WDL, creatinine 0.77, glucose 145. Lactic 1.2. Troponin less than 0.012. NT-proBNP 562. Procalcitonin level less than 0.2. Viral 4 Plex negative for influenza A/B, RSV, COVID. Patient currently being evaluated the emergency department. She is resting comfortably on 3 L/min nasal cannula. Starting last Friday, developed frontal sinus pressure/pain, sore throat, and "rumbling in her chest". Denies any significant shortness of breath. Denies any cough. Denies any sputum production. Denies any fevers or chills. Denies any recent sick contacts. Denies any chest pain, hemoptysis, or palpitations, unilateral lower extremity edema. She was previously placed on empiric antibiotics in the ED in the form azithromycin and Rocephin. Afebrile. Vital signs stable. The patient is seen today August 25, 2024 in follow-up on the regular medical floor. She is currently sitting up in bed. Awake and alert in no acute distress. Maintaining good O2 saturations in the 90s on 3 L/min per nasal cannula. She is feeling better but not quite back to her baseline. CT angiogram of the chest revealed sketchy patchy infiltrates possibly reflecting pneumonia. Procalcitonin was negative at 0.20. No evidence of pulmonary emboli. Blood culture revealing no growth thus far. White count 22.6. Hemoglobin 12.3. Platelets 128. Sodium 142. Potassium 4.1. Bicarb 26. BUN 13. Creatinine 0.7. Glucose 180. IgG level 491. IgA less than 65. IgM less than 35. IgE less than 5.0. She remains on DuoNeb inhalations, IV Solu-Medrol. Currently on ceftriaxone. Lactated Ringer's at 20 mL/h. The patient is seen today August 26, 2024 in follow-up on the regular medical floor. She is currently resting comfortably in bed. Awake and alert in no acute distress. She is maintaining good O2 saturations in the 90s on 2 L/min per nasal cannula. She has been afebrile. Hemodynamically stable. She did undergo bronchoscopy with BAL this morning with Dr. Kelley. She tolerated the procedure well. Cultures and cytology are pending. Blood culture revealing no growth. White count 27.0. Hemoglobin 10.9. Platelets 150. Sodium 143. Potassium 3.5. Bicarb 26. BUN 21. Creatinine 0.7. Glucose 219. She is continued on DuoNeb inhalations, Solu-Medrol. Remains on ceftriaxone. The patient is seen today August 27, 2024 in follow-up on the regular medical floor. She is sitting up in bed. Awake and alert in no acute distress. Fee ling nearly back to her baseline. Denies any worsening shortness of breath, cough or congestion. No hemoptysis. She did undergo bronchoscopy with BAL yesterday. Bronchial wash cultures and cytology are pending. White count 31.3. Hemoglobin 11.1. Platelets 176. Sodium 142. Potassium 3.3. Bicarb 26. BUN 25. Creatinine 0.7. Glucose 245. She remains on DuoNeb inhalations, Solu- Medrol. Antibiotics in the form of ceftriaxone. Objective - Vital Signs Vital signs: Vital Signs Temp 98.5 F 08/27/24 08:00 Pulse 85 08/27/24 08:00 Resp 17 08/27/24 08:00 BP 129/65 08/27/24 08:00 Pulse Ox 90 L 08/27/24 08:00 FiO2 Intake & Output 08/26/24 08/27/24 08/27/24 18:59 06:59 18:59 Intake Total 560 1180 Balance 560 1180 Intake: IV 200 Oral 360 1180 Other: Voiding Method Toilet Toilet Toilet # Voids 3 1 - Exam GENERAL EXAM: Alert, 69-year-old female, sitting up in bed, on room air oxygen, comfortable in no apparent distress. HEAD: Normocephalic and atraumatic EYES: Normal reaction of pupils, equal size. NOSE: Clear with pink turbinates. THROAT: No erythema or exudates. NECK: No masses, no JVD. CHEST: No chest wall deformity. LUNGS: Equal air entry with coarse crackles in the posterior bases. CVS: S1 and S2 normal with no audible murmur, regular rhythm. No extra heart sounds ABDOMEN: No hepatosplenomegaly, active bowel sounds, no guarding or rigidity. SPINE: No scoliosis or deformity SKIN: No rashes CENTRAL NERVOUS SYSTEM: No focal deficits, tone is normal in all 4 extremities. EXTREMITIES: There is no peripheral edema, clubbing, or cyanosis. Peripheral pulses are intact. - Labs CBC & Chem 7: 08/27/24 06:52 08/27/24 06:52 Labs: Abnormal Lab Results - Last 24 Hours (Table) 08/26/24 08/26/24 08/26/24 Range/Units 07:38 12:05 17:51 WBC (4.50-10.00) X 10*3/uL RBC (4.10-5.20) X 10*6/uL Hgb (12.0-15.0) g/dL Hct (37.2-46.3) % MCV (80.0-97.0) FL MCH (27.0-32.0) pg NRBC/100 WBC Diff (0.00-0.01) X 10*3/uL Potassium (3.5-5.5) mmol/L Anion Gap (4.00-12.00) mmol/L BUN/Creatinine Ratio (12.00-20.00) Ratio Glucose (70-110) mg/dL POC Glucose (mg/dL) 247 H 251 H (70-110) mg/dL Total Protein (6.2-8.2) g/dL Globulin (1.6-3.3) g/dL Fluid Appearance Cloudy A (Clear) 08/26/24 08/27/24 08/27/24 Range/Units 20:29 06:52 06:52 WBC 31.34 H (4.50-10.00) X 10*3/uL RBC 3.38 L (4.10-5.20) X 10*6/uL Hgb 11.1 L (12.0-15.0) g/dL Hct 33.1 L (37.2-46.3) % MCV 97.9 H (80.0-97.0) FL MCH 32.8 H (27.0-32.0) pg NRBC/100 WBC Diff 0.02 H (0.00-0.01) X 10*3/uL Potassium 3.3 L (3.5-5.5) mmol/L Anion Gap 14.40 H (4.00-12.00) mmol/L BUN/Creatinine Ratio 35.43 H (12.00-20.00) Ratio Glucose 245 H (70-110) mg/dL POC Glucose (mg/dL) 313 H (70-110) mg/dL Total Protein 5.2 L (6.2-8.2) g/dL Globulin 1.4 L (1.6-3.3) g/dL Fluid Appearance (Clear) 08/27/24 Range/Units 07:19 WBC (4.50-10.00) X 10*3/uL RBC (4.10-5.20) X 10*6/uL Hgb (12.0-15.0) g/dL Hct (37.2-46.3) % MCV (80.0-97.0) FL MCH (27.0-32.0) pg NRBC/100 WBC Diff (0.00-0.01) X 10*3/uL Potassium (3.5-5.5) mmol/L Anion Gap (4.00-12.00) mmol/L BUN/Creatinine Ratio (12.00-20.00) Ratio Glucose (70-110) mg/dL POC Glucose (mg/dL) 251 H (70-110) mg/dL Total Protein (6.2-8.2) g/dL Globulin (1.6-3.3) g/dL Fluid Appearance (Clear) Microbiology - Last 24 Hours (Table) 08/26/24 07:38 Gram Stain - Preliminary Bronchoalviolar Lavage - Left Bronchial Washings Culture - Preliminary 08/23/24 14:45 Blood Culture - Preliminary Blood Assessment and Plan Assessment: Community-acquired left lower lobe pneumonia versus atypical pneumonia. Procalcitonin negative. CT scan of the chest revealed scattered patchy infiltrates. Status post bronchoscopy with BAL today August 26, 2024. Cultures and cytology pending Possible underlying COPD Acute hypoxemic respiratory failure, secondary to above Leukocytosis with abnormal lymphocytosis and abnormal smudge cells, consider hematology consultation Thrombocytopenia, unspecified Possible underlying immunodeficiency Diabetes mellitus type 2 Hypertension Chronic marijuana smoker Plan: The patient was seen and evaluated Labs and medications reviewed Stable and on room air oxygen Bbronchoscopy with BAL performed yesterday Cultures and cytology pending Continue DuoNeb inhalations Discontinue IV Solu-Medrol Initiated a prednisone taper Complete a course of antibiotics Cleared for discharge from the pulmonary standpoint Follow-up in our office in 1 week This patient was seen independently by the pulmonary nurse practitioner addressing pulmonary issues I have personally seen and examined the patient, performed the documentation and the assessment and plan as written. Number of minutes spent on the visit: 23 Dictation was produced using [employer] dictation software. Please excuse any grammatical, word or spelling errors.
== END 2024-08-27 11:51 | disposition home or self-care (01) | DRG 193 ==
LOC: EC 14:02 → 4SSUR 16:33 → 5NMEDONC 08-24 06:51
PROVIDERS: ADMIT Family Medicine; ATTEND Family Medicine
PROC: 0B9F8ZZ Drainage of Right Lower Lung Lobe, Via Natural or Artificial Opening Endoscopic (ICD-10-PCS; principal; 2024-08-26 07:30)
PROC: 0B9J8ZX Drainage of Left Lower Lung Lobe, Via Natural or Artificial Opening Endoscopic, Diagnostic (ICD-10-PCS; principal; 2024-08-26 07:30)
DX: J18.9 Pneumonia, unspecified organism (principal); J96.01 Acute respiratory failure with hypoxia; D69.6 Thrombocytopenia, unspecified; J44.0 Chronic obstructive pulmonary disease with (acute) lower respiratory infection; E11.9 Type 2 diabetes mellitus without complications; D72.820 Lymphocytosis (symptomatic); I10 Essential (primary) hypertension; Z79.84 Long term (current) use of oral hypoglycemic drugs; Z57.31 Occupational exposure to environmental tobacco smoke; Z87.01 Personal history of pneumonia (recurrent); Z86.03 Personal history of neoplasm of uncertain behavior
CPT/HCPCS: 31624; 36415; 71045; 71046; 71275; 80053; 82784; 82785; 83605; 83735; 83880; 84145; 84484; 85025; 85027; 85610; 85730; 86140; 87040; 87070; 87102; 87116; 87205; 87206; 87449; 87496; 87498; 87502; 87529; 87634; 87635; 87636; 87798; 88108; 88305; 89050; 93005; 94640; 94760; 96361; 96365; 96366; 96367; 96375; 99285